=== PATIENT | male | born 1945 | race Caucasian/White ===

== ENCOUNTER 2023-05-20 09:46 | Outpatient (RCR) | payer OTHER, SELFPAY | END 2023-05-20 23:59 | disposition home or self-care (01) | LOC: RPT 09:46 | PROVIDERS: ATTENDING PHYSICIAN Orthopaedic Surgery Hand Surgery; PRIMARYCARE PHYSICIAN Student in an Organized Health Care Education/Training Program | DX: M79.601 Pain in right arm (principal); Z98.890 Other specified postprocedural states; Z73.6 Limitation of activities due to disability | CPT/HCPCS: 97010; 97110; 97140; 97164; 97530 ==

== ENCOUNTER → 2023-06-04 14:35 | Outpatient (REF) | payer OTHER, SELFPAY | LOC: RAD 14:35 | PROVIDERS: ATTENDING PHYSICIAN Student in an Organized Health Care Education/Training Program | DX: I73.9 Peripheral vascular disease, unspecified (principal) | CPT/HCPCS: 93922 ==

== ENCOUNTER 2023-06-17 09:51 | Outpatient (RCR) | payer OTHER, SELFPAY | END 2023-06-17 23:59 | disposition home or self-care (01) | LOC: RPT 09:51 | PROVIDERS: ATTENDING PHYSICIAN Orthopaedic Surgery Hand Surgery; PRIMARYCARE PHYSICIAN Student in an Organized Health Care Education/Training Program | DX: M79.601 Pain in right arm (principal); Z98.890 Other specified postprocedural states; Z73.6 Limitation of activities due to disability | CPT/HCPCS: 97110; 97140 ==

== ENCOUNTER 2023-07-16 16:55 | Outpatient (RCR) | payer OTHER, SELFPAY | END 2023-07-16 23:59 | disposition home or self-care (01) | LOC: RPT 16:55 | PROVIDERS: ATTENDING PHYSICIAN Orthopaedic Surgery Hand Surgery; PRIMARYCARE PHYSICIAN Student in an Organized Health Care Education/Training Program | DX: M79.601 Pain in right arm (principal); Z98.890 Other specified postprocedural states; Z73.6 Limitation of activities due to disability | CPT/HCPCS: 97010; 97110; 97140; 97530 ==

== ENCOUNTER 2023-08-02 08:51 | Outpatient (RCR) | payer OTHER, SELFPAY | END 2023-08-02 13:48 | disposition home or self-care (01) | LOC: RPT 08:51 | PROVIDERS: ATTENDING PHYSICIAN Orthopaedic Surgery Hand Surgery; PRIMARYCARE PHYSICIAN Student in an Organized Health Care Education/Training Program | DX: M79.601 Pain in right arm (principal); Z98.890 Other specified postprocedural states; Z73.6 Limitation of activities due to disability | CPT/HCPCS: 97110; 97530 ==

== ENCOUNTER 2023-08-06 08:30 | Day surgery (SDC) | payer OTHER, SELFPAY ==
[2023-07-24 08:15] VITALS: BMI 23.2
[2023-07-24 08:41] LABS: % Basophils 0.7 % (0-2); % Eosinophils 3.7 % (0-6); % Immature Granulocytes 0.4 % (0-0.5); % Lymphocytes 12.2 % (20.5-51.1); % Monocytes 15.3 % (1.7-9.3); % Neutrophils 67.7 % (42.2-75.2); Absolute Basophils 0.1 10^3/uL (0-0.2); Absolute Eosinophils 0.3 10^3/uL (0-0.7); Absolute Monocytes 1.2 10^3/uL (0.1-0.6); Absolute Neutrophils 5.4 10^3/uL (1.4-6.5); Hematocrit 38.6 % (39.0-52.0); Hemoglobin 12.8 g/dL (13.0-18.0); Mean Corp Hgb Conc. 33.2 g/dL (33.0-37.0); Mean Corpuscular Hgb 31.6 pg (27.0-31.0); Mean Corpuscular Volume 95.3 fL (80.0-94.0); Mean Platelet Volume 10.1 fL (7.4-10.4); Nucleated Red Blood Cells % 0 % (-); Platelet Count 168 10^3/uL (130-400); Red Blood Cell Count 4.05 10^6/uL (4.70-6.10); Red Cell Dist. Width 14.2 % (11.5-14.5)
[2023-07-24 08:52] LABS: ALT (SGPT) 31 U/L (0-50); AST (SGOT) 32 U/L (17-59); Albumin 3.8 g/dl (3.5-5.0); Alkaline Phosphatase 100 U/L (38-126); Blood Urea Nitrogen 19 mg/dl (9-20); Calcium 8.6 mg/dl (8.4-10.2); Carbon Dioxide 30 mmol/L (22-30); Chloride 99 mmol/L (98-107); Estimated Creatinine Clearance 51 ml/min; Glucose 104 mg/dl (70-99); Sodium 137 mmol/L (135-145); Total Bilirubin 1.1 mg/dl (0.2-1.3); Total Protein 6.5 g/dl (6.3-8.2); eGFR > 60.00
[2023-07-24 09:27] LABS: Potassium 4.3 mmol/L (3.5-5.1)
[2023-08-06] VITALS (10 sets, daily range): BP systolic 90–132; BP diastolic 60–98; BMI 23.2
[2023-08-06 13:37] LABS: ACT-LR - POC 297 Seconds (116-155)
[2023-08-06 14:31] LABS: ACT-LR - POC > 397 Seconds (116-155)
[2023-08-06 14:31] LABS: ACT-LR - POC > 397 Seconds (116-155)
--- NOTE | 2023-08-06 16:31 | ITS.CL.ABL ---
[employer] - Ablation
Ablation
Procedure Report:
AFIB ablation:
Mr. Nieves is a very pleasant 77 yr old gentleman with medical history significant for symptomatic persistent atrial fibrillation, on labetalol / Diltiazem and Eliquis presented now in the EP lab for atrial fibrillation ablation
Date of Procedure:
08/06/23
Indications:
Symptomatic atrial fibrillation
Pre-Operative Diagnosis:
Persistent Atrial fibrillation
Post-Operative Diagnosis:
Persistent Atrial fibrillation
Procedure Performed:
Atrial fibrillation ablation with wide area circumferential ablation (WACA) approach for pulmonary vein isolation
Performing Physician:
Lisa Celaya MD
Assistants:
EP staff
Anesthesia:
See anesthesia records
Detailed Description of the Procedure:
Written informed consent was obtained from the patient after a full explanation of the risks and benefits of the procedure including the risks of sedation and anesthesia.
The patient was brought to the electrophysiology laboratory in stable condition in fasting state. Continuous electrocardiographic and hemodynamic monitoring was initiated.
The initial rhythm was atrial fibrillation.
The procedure site was meticulously prepared with surgical scrub and allowed to dry with no pooling. Sterile draping was applied to cover the procedure site. The image intensifier was draped with sterile bag and positioned over the patient. After
infusion of local anesthetic, vascular access was obtained under ultrasound guidance and sheaths were placed over guide wire as detailed below.
Sheath and Catheter Placement:
The sheaths were upgraded as needed during the case. Intracardiac catheters were positioned using direct EAM guidance.� ICE catheter was placed in RA. The following catheters / sheaths were placed
Sheaths:
��������������� Carto VISIGO sheath in right femoral vein upgraded from 8Fr in right femoral vein
��������������� 9Fr in right femoral vein
��������������� 7fr in right femoral vein
���������������
Catheters:
������������� Biosense Hdz Thermocool STSF bidirectional (D/F) - at locations of HRA, RV, LA and LV.
������������� Pentaray catheter � at locations of RA, CS and LA
������������� ICE catheter - at locations of RA, SVC, and RV.
������������� Decapolar Bard catheter � at locations of RA, SVC and CS
Heparin was initiated and infused to maintain appropriate ACT.
Intracardiac ECHO:
An 8-Urdu AcuNav intracardiac ECHO (ICE) probe was advanced through the 9-Urdu sheath in the femoral vein into the right atrium under EAM and ICE ultrasound image guidance and a baseline ECHO study was performed. The left atrial size was
enlarged. There was mild tricuspid regurgitation. The aortic valve was grossly normal. There was normal left ventricular systolic functions. There was small pericardial effusion. The CARRILLO has normal velocities noted on Doppler. All the veins were
identified and good flow noted.
The cardiac chambers were rotated as noted previously on the CT scan. 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 The cardiac chambers are
located on the right side of the mediastinum.
During the procedure, ICE was used for monitoring of complications, guidance of trans-septal puncture, monitor the catheter position and tracking ablation lesions. No change in the pericardial space noted throughout the procedure.
Electroanatomic mapping (EAM) of the right atrium:
A J-tipped guidewire was advanced through the 8-Urdu sheath in the right femoral vein into the superior vena cava under EAM and ICE guidance. The 8-Urdu sheath was exchanged for a VIZIGO sheath which was advanced into the superior vena cava.
�Using the Pentaray catheter advanced through VIZIGO sheath into the right atrium, an electroanatomic map (EAM) of the right atrium, SVC and IVC �was created using [employer] Carto mapping system. The map was used to identify the trans-septal
location and route to take. The IVC travels to the right and anteriorly from the abdomen and the LA and septum was posterior and superiorly. The sheath has to make an S shaped curve to come in contact with the fossa ovalis.
Trans-septal Puncture:
A J-tipped guidewire with dilator was advanced through VIZIGO sheath into the superior vena cava under EAM and ICE guidance. A BRK needle was advanced until the tip was slightly behind the tip of the dilator inside the Visigo sheath. The apparatus
was withdrawn until it was in contact with the fossa ovalis. The position was adjusted based on EAM and ultrasound images from ICE. Under EAM, hemodynamic and ICE ultrasound and Fluoroscopic guidance, left atrium was cannulated by advancing the
needle. Once atrial septum was cannulated, the needle was pulled back and a BMW was placed into the LA and to LSPV. A saline injection was done into the left atrium. The saline bubbles were noted on the ICE confirming the trans-septal puncture. Both
the sheath and the dilator was advanced into the left atrium. The dilator with the needle was withdrawn. Blood was aspirated from the sheath and arterial blood confirmed. The sheath was flushed. Saline injection noted into the left atrium on ICE.
The pressure waveform was checked and LA pressure measured. The penta-ray catheter was advanced in the sheath into the left pulmonary vein.
The 3-D mapping was done and then the penta-ray was switched to ablation catheter and back to penta-ray as needed.
3D Electroanatomic Mapping - LA:
Using the Pentaray catheter advanced through VIZIGO sheath into the left atrium, an electroanatomic map (EAM) of the left atrium was created using [employer] Carto mapping system. The map was used for localization of catheter position and
tacking of ablation lesions. The EAM of the left atrium showed a 2 left sided veins with 2 right sided veins with all electrically connected to the body the LA. It showed no significant scar. The LA was dilated in size. �
Following the EAM, preparations were made for ablation.
Phrenic nerve stimulation:
The right sided pulmonary veins were identified and the anterior antrum and the deep anterior locations of the PVs were check with high output stimulation 20mA for 4 milliseconds that showed no phrenic nerve capture in any of the potential ablation
areas.
No phrenic nerve capture was noted and the safe areas were marked and a design line was created through the areas of tested antral myocardium for ablation lesions.
Ablation:
Ablation # 1: Pulmonary vein Isolation:
Radiofrequency ablation was performed using an open irrigation, force-sensing 3.5mm radiofrequency ablation catheter (TripletPlus STSF) by completing the circumferential lesions around the left and right pulmonary veins achieving pulmonary vein
isolation.
All the ablation lesions were guided by the [facility] SURPOINT module with the posterior lesions were limited to 45 fields for SURPOINT lesion index goal of 400 and anterior wall lesions were limited to SURPOINT index goal of 450.
The esophagus was noted to be on the left side of the LA near the PV antra based on the locations of the esophageal temperature probe. Ablation was stopped for any temperature increase of 0.1 degree C. Max esophageal temperature was 37.9C.
The AF converted into atrial flutter with completion of the PVI and then terminated into sinus rhythm.
Confirmation of the PVI and bidirectional block:
Following achievement of entrance block at the pulmonary veins, pacing from the pentaray catheter in each of the four veins at 10 milliamps for 2 milliseconds showed entrance and exit block. All PVI were rechecked at the end of the case and remained
isolated with dissociated and local capture with pacing. Entrance and exit block were demonstrated in all veins.
The LA was mapped with Carto EAM in sinus rhythm confirming the line of block at the ablation lesions lines.
EP study:
Sinus Node Function: The sinus node functions are within acceptable normal range. The atrial ERP was noted at <600/280 while under general anesthesia.
The AV eli functions are deemed within normal range. AV eli ERP was 600/280ms. There was retrograde conduction noted.
Arrhythmia Induction:
No sustained arrhythmia was induced at the end of the study. Aggressive measures were done to induce the flutter noted earlier but arrhythmia can be induced now. ��
Procedure End
ICE study was done again that showed no epicardial accumulation. No complications noted.
Following the completion of the EP study, catheters were removed. Protamine 40 mg was given at the end of the procedure and ACT was checked repeatedly. The sheaths were removed and hemostasis achieved with �VASCADE� and manual compression after
acceptable ACT is achieved.
Left atrial Pressure:
Pre-ablation: Mean LA pressure was 11mmHg
Post-ablation: Mean LA pressure was 10mmHg
Post ablation RA pressure: 4 mmHg
Estimated Blood loss:
<10 cc
Specimens Removed:
None.
Implants / Devices:
None
Urine output:
None
Packs / Drains/ Tubes:
None
Instrument / Sponge Count Correct:
Yes
Complications of the Procedure:
None
Condition of Patient at Time of Transfer:
Hemodynamically stable with no neurological or vascular compromise.
Summary:
Successful atrial fibrillation ablation with circumferential bidirectional line of block at pulmonary vein antra (Pulmonary vein isolation)
--- NOTE | 2023-08-06 16:37 | W.PN.UPDATE ---
Update Note
Progress Note Update
77 yo WM s/p PVI (same day). He denies cp, sob, aden diet, voiding, EKG SR, R fem site VASCADE closure, soft. He will take his Eliquis at 8pm at home. He will continue diltiazem and will add PPI for 2 weeks. Activity restrictions reviewed. He will
f/u [employer] in 2 weeks. He is for d/c home after 5pm if groins stable and amb w/o dizziness.
== END 2023-08-06 18:25 | disposition home or self-care (01) ==
LOC: CATH 08:30
PROVIDERS: ATTENDING PHYSICIAN Internal Medicine Cardiovascular Disease; FAMILY PHYSICIAN Student in an Organized Health Care Education/Training Program; OTHER PHYSICIAN Internal Medicine
DX: I48.19 Other persistent atrial fibrillation (principal); Z79.01 Long term (current) use of anticoagulants; I11.0 Hypertensive heart disease with heart failure; E78.5 Hyperlipidemia, unspecified; Z95.5 Presence of coronary angioplasty implant and graft; I25.10 Atherosclerotic heart disease of native coronary artery without angina pectoris; Z86.73 Personal history of transient ischemic attack (TIA), and cerebral infarction without residual deficits; J45.909 Unspecified asthma, uncomplicated; M41.9 Scoliosis, unspecified; K21.9 Gastro-esophageal reflux disease without esophagitis; Z88.1 Allergy status to other antibiotic agents; Z88.5 Allergy status to narcotic agent; I35.1 Nonrheumatic aortic (valve) insufficiency
CPT/HCPCS: C1769; C1730; C1732; C1892; C1759; C1894; 36415; 75572; 76937; 80053; 85025; 85347; 86850; 86900; 86901; 93005; 93656; C1760; C1766; Q9967

== ENCOUNTER 2023-08-09 18:26 | Inpatient (IN) | payer OTHER, SELFPAY ==
[2023-08-09 13:53] VITALS: BP 126/70
[2023-08-09 14:23] LABS: % Basophils 0.2 % (0-2); % Eosinophils 1.2 % (0-6); % Immature Granulocytes 0.2 % (0-0.5); % Lymphocytes 5.4 % (20.5-51.1); % Monocytes 17.4 % (1.7-9.3); % Neutrophils 75.6 % (42.2-75.2); Absolute Eosinophils 0.2 10^3/uL (0-0.7); Absolute Lymphocytes 0.7 10^3/uL (1.2-3.4); Absolute Monocytes 2.2 10^3/uL (0.1-0.6); Absolute Neutrophils 9.6 10^3/uL (1.4-6.5); Hematocrit 34.5 % (39.0-52.0); Hemoglobin 11.8 g/dL (13.0-18.0); Mean Corp Hgb Conc. 34.2 g/dL (33.0-37.0); Mean Corpuscular Hgb 31.8 pg (27.0-31.0); Mean Platelet Volume 10.1 fL (7.4-10.4); Nucleated Red Blood Cells % 0 % (-); Platelet Count 136 10^3/uL (130-400); Red Blood Cell Count 3.71 10^6/uL (4.70-6.10); Red Cell Dist. Width 13.9 % (11.5-14.5); White Blood Cell Count 12.8 10^3/uL (4.8-10.8)
[2023-08-09 15:00] LABS: Troponin I 0.272 ng/ml
--- NOTE | 2023-08-09 15:33 | ED.GENMED ---
History of Present Illness
General
Chief Complaint: Abdominal Pain
Time Seen by Provider: 08/09/23 15:31
Travel History
Have you had any contact with someone who has COVID-19?: No
Do you have any symptoms of coronavirus? Fever > 100 degrees, chills, cough, shortness of breath, sore throat, loss of taste or smell, muscle aches, or headache?: No
History of Present Illness
History of Present Illness:
77-year-old male with history of paroxysmal A-fib, stroke, hypertension, hyperlipidemia, and coronary artery disease status post stent x 2 presents to the emergency department for evaluation of shortness of breath and upper abdominal/chest
discomfort beginning 2 days ago. He is 3 days status post cardiac ablation for A-fib. He is anticoagulated. Notes exertional dyspnea and worsening symptoms when supine. Also notes a 6 pound weight gain since that time. Has been compliant with
all of his medications since the procedure. Denies any fevers or chills.
Past History
Past History
ED Past Medical History: Arrthythmia, CAD, CVA, GERD and HTN
ED Past Surgical History: Cardiac, Orthopedic and Other (The patient has a history of 2 spinal fusions, and stents for coronary artery disease. )
Social History
Tobacco: Non-smoker
Alcohol: None
Drug: None
Personal:
Living: with family
Review of Systems
Review of Systems
Allergies reviewed?: Yes
All Other Systems: ROS reviewed and negative except as documented in HPI and ROS
Phy Exam
Physical Exam
Physical Exam:
GEN: Well appearing, NAD, WDWN
Eyes: PERRLA, EOMs intact, no scleral icterus
HENT: NCAT, oral mucosa moist, no JVD, no cervical adenopathy.
Lungs: CTAB, no wheezes, rales, rhonchi, normal chest wall excursion
Cardiac: Tachycardic/irregular, no murmur
Abdomen: S, NT, ND, NABS, no masses or hepatosplenomegaly
Neuro: AO x 3
MSK: No gross deformity or ecchymosis. 3+ pitting edema BLE
Skin: No rashes, petechiae. Normal color, no pallor or jaundice.
Psych: Calm, cooperative, proper hygiene
Course
Orders/Labs/Results
Orders:
Orders
08/09/23 14:06
Electrocardiogram (*1) Urgent
Reason for Study: Abdominal Pain
EKG- Treatment ONCE
08/09/23 14:14
Complete Blood Count/With Diff Urgent
Comprehensive Metabolic Panel Urgent
Lipase Urgent
NT-proBNP Urgent
Comment: BNP ADDED ON BY FLOOR 3:30PM 08-09-23
Troponin I Urgent
08/09/23 Dinner
Cholesterol Lowering
At Your Request: Full Participation
Cholesterol Lowering: Sodium, 2 Gram
08/09/23 15:31
Add On- LAB Urgent
Tests Added?: BNP
08/09/23 15:32
CR Chest - 2 Views Urgent
Comment:
Reason For Exam: chest pain/SOB
08/09/23 15:37
Echo 2D MMode Color/Doppler Urgent
Reason for Study: chest pain/SOB
Cardiology Consult: Usman Acosta
Comment: chest pain/SOB s/p ablation
08/09/23 17:18
Troponin I Routine
08/09/23 17:19
Furosemide [Lasix] 20 mg .ROUTE .STK-MED ONE
Furosemide [Lasix] 20 mg IV ONCE ONE
08/09/23 17:42
Admit/Transfer Patient As Directed
Co-Sign Provider:
Level of Care: Inpatient admission
Assign to:: Telemetry
Physician / Group: Edward/hospitalist
Diagnosis: pericarditis, CHF
Reason for Telemetry: Arrhythmia
Date to Stop Telemetry: 08/12/23
Time to Stop Telemetry: 11:00
Reason for Hospitalization: pericarditis, CHF
Expected length of stay greater than two midnights?: Yes
ELOS- Estimated Length of Stay in days: 3
I certify the patient meets the requirements for IP care: Yes
08/09/23 17:44
Code Status As Directed
Resuscitation Status: Full Code
08/09/23 17:57
Ibuprofen [Motrin] 400 mg PO NOW STA
08/09/23 20:46
Apixaban [Eliquis] 5 mg PO BID
Atorvastatin [Lipitor] 40 mg PO QPM
Labetalol [Trandate] 200 mg PO BID
08/09/23 20:46
CARDIOLOGY CONSULT Routine
Consulting Provider: Ernst Acosta
Was physician already notified: Yes
HF DIETARY CONSULT Routine
HF EDUCATOR CONSULT Routine
Comment:
Activity As Directed
Activity Level: As Tolerated
Intake/ Output As Directed
Frequency: Per unit guidelines
Patient Education As Directed
Type: CHF folder
Comment: give on admission. Document in Interdisciplinary Education record
Sleep Apnea Assessment by RN As Directed
Comment:
Physician Instructions:
Vital Signs As Directed
Frequency: Other
Additional Instructions:: Q12 or per unit guidelines if more frequent.
Weight As Directed
Frequency: Daily
Type of Scale: Standing Scale
Comment: Daily morning weight. If unable to stand, use balanced bed scale.
Weight As Directed
Frequency: Once
Type of Scale: Standing Scale
Comment: Upon Admission. If unable to stand, use balanced bed scale.
Pulse Ox/cont/shift [RESP] Routine
Quantity: 1
Special Instructions: Daily pulse oximetry at rest. If greater than 92% at rest also obtain pulse oximetry
while ambulating as tolerated.
Ot Eval And Treat Routine
Pt Eval And Treat Routine
Activity Level: As Tolerated
08/09/23 20:50
Acetaminophen [Tylenol] 650 mg PO Q4HPRN PRN
08/09/23 22:00
Budesonide/Formoterol 80/4.5 [Symbicort 80/4.5 Mcg Inhaler] 2 puff INH R HS
Famotidine [Pepcid] 20 mg PO BID@1200,2200
08/10/23 06:00
Basic Metabolic Panel IN AM
Complete Blood Count/With Diff IN AM
Magnesium IN AM
08/10/23 08:00
Diltiazem Extended Release [Cardizem Cd] 180 mg PO DAILY
Ferrous Sulfate [Feosol] 325 mg PO DAILY
Furosemide [Lasix] 20 mg IV DAILY
Pantoprazole [Protonix] 40 mg PO DAILY
08/11/23 06:00
Basic Metabolic Panel IN AM
Complete Blood Count/With Diff IN AM
Magnesium IN AM
08/12/23 06:00
Basic Metabolic Panel IN AM
Complete Blood Count/With Diff IN AM
Magnesium IN AM
08/12/23 11:00
DC Protocol for Telemetry ONCE
Abnormal Lab Results
08/09/23 08/09/23
14:14 17:18
WBC 12.8 H 10^3/uL
(4.8-10.8)
RBC 3.71 L 10^6/uL
(4.70-6.10)
Hgb 11.8 L g/dL
(13.0-18.0)
Hct 34.5 L %
(39.0-52.0)
MCH 31.8 H pg
(27.0-31.0)
Absolute Neuts (auto) 9.6 H 10^3/uL
(1.4-6.5)
Absolute Lymphs (auto) 0.7 L 10^3/uL
(1.2-3.4)
Absolute Monos (auto) 2.2 H 10^3/uL
(0.1-0.6)
Neutrophils % 75.6 H %
(42.2-75.2)
Lymphocytes % 5.4 L %
(20.5-51.1)
Monocytes % 17.4 H %
(1.7-9.3)
Sodium 128 L mmol/L
(135-145)
Chloride 94 L mmol/L
(98-107)
BUN 22 H mg/dl
(9-20)
Glucose 113 H mg/dl
(70-99)
Calcium 8.2 L mg/dl
(8.4-10.2)
Total Bilirubin 1.6 H mg/dl
(0.2-1.3)
Troponin I 0.272 H* ng/ml 0.244 H* ng/ml
Total Protein 6.0 L g/dl
(6.3-8.2)
08/09/23 14:14
08/09/23 14:14
Vital Signs
Initial and Last Documented VS:
Initial Vital Signs
Temp Pulse Resp BP Pulse Ox
99.5 F 74 22 126/70 91
08/09/23 13:53 08/09/23 13:53 08/09/23 13:53 08/09/23 13:53 08/09/23 13:53
Last Documented Vital Signs
Temp Pulse Resp BP Pulse Ox
97.3 F 84 15 101/65 97
08/09/23 19:33 08/09/23 22:12 08/09/23 21:48 08/09/23 22:12 08/09/23 21:48
MDM/Problems Addressed
MDM/Problems Addressed:
Cardiology was consulted for urgent echocardiogram given symptoms concerning for acute pericarditis. Fortunately echocardiogram showed no evidence for effusion. Given his weight gain and exertional shortness of breath for acute CHF with preserved
ejection fraction. Certainly some component of pericarditis is considered as well given the recent cardiac intervention and the positional nature of his symptoms. Will admit to the hospitalist service for IV diuresis, further care to be determined
by cardiology
Comment
Comment:
EKG independently interpreted by me shows a rapid atrial fibrillation at a rate of 103, significant patient motion artifact limits interpretation but no gross ST changes concerning for ischemia
*Critical Care Note
Total Time (30-74mins, 75-104mins- exclusive of procedures): Not Applicable
ED Attending Note
-
Portions of this chart may have been created with voice recognition software.� Occasional wrong word or��sound alike� substitutions may have occurred due to the inherent limitations of voice recognition software.
Discharge Plan
Departure
Patient Disposition: Admit
Date of Disposition: 08/09/23
Time of Disposition: 17:16
Admit to: Telemetry
Presentation/result/management discussed w/ accepting MD/DO: Hospitalist
Discharge Problem:
Acute heart failure with preserved ejection fraction (HFpEF)
Interventions
Interventions:
*Risk Screen - Suicide Last Done: 08/09/23 14:04
*General Assessment Last Done: 08/09/23 14:04
*Neglect/Abuse Screening Last Done: 08/09/23 14:04
ED- Fall Risk Assessment Last Done: 08/09/23 15:30
*ED COVID-19 Vaccine History Last Done: 08/09/23 15:30
*Nursing Disposition Last Done: 08/09/23 20:48
FL-Istxbl-Ulenpsjbcf Assessment Last Done: 08/09/23 15:30
Discharge Date and Time
Discharge Date/Time: 08/09/23 20:48
[2023-08-09 15:54] LABS: ALT (SGPT) 29 U/L (0-50); AST (SGOT) 35 U/L (17-59); Albumin 3.5 g/dl (3.5-5.0); Alkaline Phosphatase 83 U/L (38-126); Blood Urea Nitrogen 22 mg/dl (9-20); Calcium 8.2 mg/dl (8.4-10.2); Carbon Dioxide 29 mmol/L (22-30); Chloride 94 mmol/L (98-107); Glucose 113 mg/dl (70-99); Potassium 4.4 mmol/L (3.5-5.1); Sodium 128 mmol/L (135-145); Total Bilirubin 1.6 mg/dl (0.2-1.3); eGFR > 60.00
--- NOTE | 2023-08-09 16:05 | CON.CAR ---
Addendum entered and electronically signed by Ernst Acosta MD 08/09/23 17:57:
77-year-old male with history of coronary artery disease, prior OM and RCA stenting, atrial fibrillation, history of CVA, paralyzed hemidiaphragm COPD/asthma who recently underwent A-fib ablation 08/06/2023 patient presents with shortness of breath
and some chest discomfort. Patient noted to have mid lower sternal to right lower sternal chest discomfort the day after his procedure seem to be worse laying flat. Symptoms were a bit worse on and have persisted today. However patient
has noticed that he has had increased shortness of breath tickly worse when laying flat. Currently comfortable just a low-grade sacralization at the right lower chest but patient appears mildly tachypneic on room air. Oximetry 90%. Echocardiogram
performed in the ER. Images reviewed patient with preserved left ventricular function no evidence of significant pericardial effusion. Patient currently noted to be in A-fib with heart rate in the upper 90s to 100. However there were times in the
ER when he had atrial flutter with accelerated ventricular response.
.\\
Chest discomfort. Suspect a component of this is postprocedural discomfort patient may have a component of postprocedural pericarditis although some of his discomfort may just be related to CHF.
-Will continue to assess symptoms as he is diuresed.
-If send symptoms sound more consistent with pericarditis then may consider use of colchicine
Shortness of breath. Patient has baseline underlying lung disease with COPD/asthma and a paralyzed hemidiaphragm. Likely has additional shortness of breath related to recurrence of atrial fibrillation as well as a component of heart failure.
Diuresis with IV Lasix. Eventual plans for cardioversion
Troponin. Mildly abnormal. May be consistent with most recent procedure. Patient without acute ischemic changes chest discomfort by description is atypical for angina. No wall motion abnormalities on echo. Patient does have a history of
underlying coronary disease. Will follow serial troponins.
-Continue anticoagulation
Addendum entered and electronically signed by ITZ Giron 08/09/23 17:23:
Patient now in AFIB -rate relatively well controlled- no need for dilt drip at this time. Echo showed no pericardial effusion and normal LV function. Will give a dose of IV diuretic now and monitor response. Check another trop. Can consider
Motrin/colchicine if pain persists-currently fairly comfortable. Patient to be placed on O2 by UT.
Original Note:
Consultation
Consultation Request
Date/Time Consultation Requested: 08/09/23 4358
Date/Time Consultation Performed: 08/09/23 1545
Requesting Provider: Donovan Martines
Performing Provider: Connie MOBLEY for Dr. Acosta
Reason for Consultation: CP, SOB, AFIB, s/p recent ablation
Medical History
-
Chief Complaint: SOB and chest discomfort
History of Present Illness:
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 Martinez) with superimposed restrictive lung
disease who is here for evaluation of CP and SOB. Briefly, he had an afib ablation/PVI on 08/06/[address] Celaya. The next night, he felt SOB and had chest discomfort, which worsened over the next few days. Tylenol helped quite a bit. He is now in
the ER and was initially seen to be in AFIB, now appears like aflutter to my assessment in 130's. He is in no distress. BP is stable. He notes 6 lb weight gain and increased LE edema. Symptoms worse with laying. Chest pain is aching feeling and goes
around to back. It is noted in rib area and is worse on right. He has had a chronic productive cough.
Past Medical History
Past Medical History: Arrhythmias, CAD, COPD, CVA, HTN and Hypercholesterolemia
Social History
Tobacco: Non-Smoker
Personal:
Living: With Family
Family History
Family History: Reviewed & Not Pertinent
Allergies / Home Medications
Allergy/AdvReac Type Severity Reaction Status Date / Time
levofloxacin [From Levaquin] Allergy extreme Verified 08/09/23 14:04
pain in
lower legs
and calves
tramadol Allergy Shortness Verified 08/09/23 14:04
of Breath
�Medication �Instructions �Recorded �Confirmed �Type
ascorbic acid (vitamin C) 500 mg 500 mg PO DAILY Supplement 11/06/19 08/06/23 History
tablet (Vitamin C)
calcium carbonate (Oyster Shell 500 mg PO DAILY Gastrointestinal 05/12/21 08/06/23 History
Calcium 500) issue
famotidine 20 mg tablet 20 mg PO BID@1200,2200 05/12/21 08/06/23 History
Gastrointestinal issue
atorvastatin 40 mg tablet 40 mg PO QPM High Cholesterol 09/19/21 08/06/23 History
zinc sulfate 50 mg zinc (220 mg) 220 mg PO .2 TIMES A WEEK 09/28/21 07/18/23 History
capsule Supplement
acetaminophen 650 mg 1,300 mg PO BIDPRN PRN PAIN 12/25/22 08/06/23 History
tablet,extended release
cholecalciferol (vitamin D3) 25 25 mcg PO Q48H supplement 12/25/22 08/06/23 History
mcg (1,000 unit) tablet (Vitamin
D3)
diltiazem HCl 180 mg capsule,24 180 mg PO DAILY AFib/hypertension 12/25/22 08/06/23 History
hr,extended release
vitamin A 2,400 mcg capsule 2,400 mcg PO TUFR@0800 Supplement 12/25/22 08/06/23 History
fluticasone fur. 100 mcg-umeclid 1 inh inhalation R HS 12/27/22 08/06/23 History
62.5 mcg-vilant 25 mcg Lung/Breathing Issues
inhalat.powder (Trelegy Ellipta)
apixaban 5 mg tablet (Eliquis) 5 mg PO BID atrial fibrillation 04/16/23 08/06/23 History
azelastine 137 mcg (0.1 %) nasal 2 spray intranasal DAILYPRN PRN 12/26/23 04/16/24 History
spray aerosol allergies
coQ10 (ubiquinol) 200 mg capsule 200 mg PO DAILY supplement 04/16/23 08/06/23 History
fluticasone propionate 50 1 spray intranasal DAILY PRN 04/16/23 08/06/23 History
mcg/actuation nasal allergies
spray,suspension
labetalol 200 mg tablet 200 mg PO BID Blood Pressure 04/16/23 08/06/23 History
therapeutic multivitamin 1 tab PO DAILY Supplement 04/16/23 08/06/23 History
albuterol sulfate 90 mcg/actuation 2 puff inhalation R Q4HPRN PRN sob 04/18/23 07/18/23 Rx
aerosol inhaler #1 g
furosemide 20 mg tablet (Lasix) 20 mg PO MOWEFR@1400 07/18/23 08/06/23 History
ferrous sulfate 325 mg (65 mg 325 mg PO DAILY 08/06/23 08/06/23 History
iron) tablet (iron)
pantoprazole 40 mg tablet,delayed 40 mg PO DAILY #14 tabs 08/06/23 Rx
release
Review of Systems
-
History Source: Patient
All other systems: Negative unless noted
Constitutional: Weight Gain
Respiratory: Cough and Trouble Breathing
Cardiac: Chest Pain
Musculoskeletal: Edema
Physical Exam
Vital Signs
Temp Pulse Resp BP Pulse Ox
99.5 F 74 22 126/70 91
08/09/23 13:53 08/09/23 13:53 08/09/23 13:53 08/09/23 13:53 08/09/23 13:53
Lab Results
08/09/23 14:14
08/09/23 14:14
Troponin I 0.272 ng/ml H* 08/09/23 14:14
Physical Exam
General: Well Developed, Well Nourished and No Apparent Distress
HEENT: Normocephalic and Anicteric
Respiratory: Wheezes and Rhonchi
Cardiac: Regular Rhythm (Aflutter 135 BPM, regular currently) and Peripheral Edema (moderate BLE edema)
Musculoskeletal: Edema
Skin: Warm and Dry
Neuro: AO x 3
Psych: Calm
Impression / Plan
-
SOB:
-check echo now r/o effusion
-CXR pending- patient does have rhonchi and wheezing, also with evidence for excess fluid. Suspect bbulw-cw-etxhois HFpEF and likely to need IV diuresis, which requires intensive monitoring. BNP pending, but weight up and edema noted. Await echo to
r/o effusion before diuresis. Known lung disease as detailed above.
Chest discomfort:
-some could be post-procedural inflammation/pain. It was helped with Tylenol.
Abnormal troponin:
-suspect non-ischemic myocardial injury related to recent procedure
-can trend to peak
-echo as above
AFIB/Atrial flutter:
-s/p recent PVI- came in in afib, now appears in aflutter
-continue CCB/BB
-on Eliquis for OAC
-may need CV, but await testing as above- in meantime, may need more rate control with dilt drip, which requires intensive monitoring
Hyponatremia:
-could be secondary to excess volume
CAD with hx stenting 2009:
-on Eliquis, statin, BB
-low risk stress test 2020
Data Reviewed
-
EKG: Tracing Personally Visualized and interpreted (AFIB 103 BPM)
Radiology: Other (CXR pending)
Medical Tests (Nuc Med, Echo etc): Report Reviewed by me (echo 04/17/23: Normal biventricular size and systolic function without regional wall motion abnormality. Trace aortic regurgitation. Mild pulmonary hypertension.) and Other (echo pending)
Labs: Labs Reviewed by me (trop 0.272, NA 128)
[2023-08-09 16:20] LABS: NT-proBNP 1360 pg/ml
[2023-08-09 16:49] LABS: Lipase 190 U/L (23-300)
[2023-08-09 17:08] VITALS: BP 113/79
--- NOTE | 2023-08-09 17:18 | HPS.HSE ---
Family Physician
-
Family Physician: Alessandra Burr MD
Chief Complaint
-
Chest pain with shortness of breath
History of Present Illness
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 Martinez) with superimposed restrictive lung
disease; p/w CP and SOB.
Pt had an afib ablation/PVI on 08/06/[address] Celaya. The next night, he felt SOB and had chest discomfort/ ache, which worsened over the next few days. His CP is worse with lying flat, and relieved with leaning forward.
He also has had 6 lb weight gain and increased LE edema since the ablation.
In the ER, he was noted to be in A-fib/atrial flutter.
Cardiology was consulted, and patient was admitted for likely pericarditis with acute heart failure.
Medical History
Past Medical History
Past Medical History: Reports Other
Additional Past Medical History:
Persistent A-fib
CVA 2020
HTN
HLD
GERD/Moffett's esophagus
CAD/cardiac stents 15-20 years ago
Asthma
Polio with chronic left elevated hemidiaphragm
scoliosis with lee repair as a teen, iron deficiency
Past Surgical History: Reports Other
Additional Past Surgical History:
poppy fusion secondary scoliosis as a teenager right rotator cuff repair
Inguinal hernia repair
Cardiac cath with stents 15 to 20 years ago
Social History
Tobacco: Non-smoker
Alcohol: None
Drug: None
Personal:
Living: With Family
Family History
Family History: Not pertinent
Allergies / Home Medications
Allergies reflects when Allergies were last updated in [facility].
Home Medications with original date entered in [facility]
Allergy/Medication List:
Allergies
Allergy/AdvReac Type Severity Reaction Status Date / Time
levofloxacin [From Levaquin] Allergy extreme Verified 08/09/23 14:04
pain in
lower legs
and calves
tramadol Allergy Shortness Verified 08/09/23 14:04
of Breath
Home Medications
ascorbic acid (vitamin C) 500 mg tablet (Vitamin C) 500 mg PO DAILY Supplement 11/06/19
calcium carbonate (Oyster Shell Calcium 500) 500 mg PO DAILY Gastrointestinal issue 05/12/21
famotidine 20 mg tablet 20 mg PO BID@1200,2200 Gastrointestinal issue 05/12/21
atorvastatin 40 mg tablet 40 mg PO QPM High Cholesterol 09/19/21
zinc sulfate 50 mg zinc (220 mg) capsule 220 mg PO .2 TIMES A WEEK Supplement 09/28/21
acetaminophen 650 mg tablet,extended release 1,300 mg PO BIDPRN PRN mild pain 12/25/22
cholecalciferol (vitamin D3) 25 mcg (1,000 unit) tablet (Vitamin D3) 25 mcg PO Q48H supplement 12/25/22
diltiazem HCl 180 mg capsule,24 hr,extended release 180 mg PO DAILY AFib/hypertension 12/25/22
vitamin A 2,400 mcg capsule 2,400 mcg PO TUFR@0800 Supplement 12/25/22
fluticasone fur. 100 mcg-umeclid 62.5 mcg-vilant 25 mcg inhalat.powder (Trelegy Ellipta) 1 inh inhalation R HS Lung/Breathing Issues 12/27/22
apixaban 5 mg tablet (Eliquis) 5 mg PO BID atrial fibrillation 04/16/23
azelastine 137 mcg (0.1 %) nasal spray aerosol 2 spray intranasal DAILYPRN PRN allergies 04/16/23
coQ10 (ubiquinol) 200 mg capsule 200 mg PO DAILY supplement 04/16/23
fluticasone propionate 50 mcg/actuation nasal spray,suspension 1 spray intranasal DAILY PRN allergies 04/16/23
labetalol 200 mg tablet 200 mg PO BID Blood Pressure 04/16/23
therapeutic multivitamin 1 tab PO DAILY Supplement 04/16/23
albuterol sulfate 90 mcg/actuation aerosol inhaler 2 puff inhalation R Q4HPRN PRN sob #1 g 04/18/23
furosemide 20 mg tablet (Lasix) 20 mg PO MOWEFR@1400 07/18/23
ferrous sulfate 325 mg (65 mg iron) tablet (iron) 325 mg PO DAILY 08/06/23
pantoprazole 40 mg tablet,delayed release 40 mg PO DAILY #14 tabs 08/06/23
Review of Systems
-
Respiratory: Reports Trouble Breathing
Cardiac: Reports See HPI and Chest Pain
Physical Exam
Vital Signs
Vital Signs
Temp Pulse Resp BP Pulse Ox
37.5 C 74 22 126/70 91
08/09/23 13:53 08/09/23 13:53 08/09/23 13:53 08/09/23 13:53 08/09/23 13:53
Physical Exam
General: Well Developed, Well Nourished, Comfortable, Conversant and Appears Chronically Ill
HEENT: NormoCephalic, Moist mucous membranes, Atraumatic and Oxygen (2L NC)
Respiratory: Clear and Non Labored Respirations; No Accessory Resp Muscle Use
Cardiac: S1/S2 and Irregular Rhythm; No Murmur or Rub
GI: Soft, Non Tender, Non Distended and Normal Bowel Sounds; No Organomegaly
Rectal: Deferred by Provider
Musculoskeletal: No Clubbing, No Cyanosis, Edema, Left Lower Extremity and Edema, Right Lower Extremity
Skin: No Rash
Neuro: Awake
Psych: Calm and Intact Judgment/Insight
Laboratory Results
-
08/09/23 14:14
08/09/23 14:14
Laboratory Results
Total Bilirubin 1.6 mg/dl (0.2-1.3) H 08/09/23 14:14
AST 35 U/L (17-59) 08/09/23 14:14
ALT 29 U/L (0-50) 08/09/23 14:14
Alkaline Phosphatase 83 U/L (38-126) 08/09/23 14:14
Troponin I 0.272 ng/ml H* 08/09/23 14:14
Lipase 190 U/L (23-300) 08/09/23 14:14
Data Reviewed
-
Medical Tests (Nuc Med, Echo, EKG etc): Report Reviewed by me (echo)
Lab Data: Labs Reviewed by me
Impression/Plan
-
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 Martinez) with superimposed restrictive lung
disease; p/w CP and SOB.
Pt had an afib ablation/PVI on 08/06/[address] Celaya. The next night, he felt SOB and had chest discomfort/ ache, which worsened over the next few days. His CP is worse with lying flat, and relieved with leaning forward.
He also has had 6 lb weight gain and increased LE edema since the ablation.
In the ER, he was noted to be in A-fib/atrial flutter.
Cardiology was consulted, and patient was admitted for likely pericarditis with acute heart failure.
A/P:
# Acute on chronic diastolic heart failure
Echo on admission unrevealing: EF 60-65%. Compared to the previous echo there is no significant change.
IV Lasix 20 mg ordered by cardiology, continue. Monitor daily weight and electrolyte
Cardiology consult
# Likely pericarditis
Echo unrevealing
Most likely would need colchicine
Cardiology CS as above
# Persistent atrial fibrillation.
# Hypertension.
Rate controlled
Continue prior to admission Cardizem and labetalol
Continue prior to admission Eliquis
Cardiology consult as above
# Hyperlipidemia.
# Coronary artery disease status post PAMELA to mid RCA and OM 06/11/2009.
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
# Asthma, mod intermittent
On daily Trelegy
# Restrictive lung disease.
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
# Scoliosis.
# Gastroesophageal reflux disease.
PPI
# Hyperlipidemia
Cont Lipitor.
Full code
DVT ppx: SCOUT SNIPER Eliquis
[2023-08-09] MEDS: LASIX 20 MG IV (17:24)
[2023-08-09 17:50] LABS: Troponin I 0.244 ng/ml
[2023-08-09 18:00] VITALS: BP 105/64
[2023-08-09] MEDS: MOTRIN 400 MG PO (18:25)
[2023-08-09 19:33] VITALS: BP 101/61
[2023-08-09 20:00] VITALS: BP 96/64
--- NOTE | 2023-08-09 21:30 | PTCARENOTE ---
Pt arrived to floor from ED via stretcher. Pt ambulated with a stable gait to bed. Pt aox3. VSS , on 2LNC. pt placed on tele, given heart failure education and oriented to room. Will review chart and follow plan of care.
[2023-08-09 21:31] VITALS: BMI 22.1
[2023-08-09] MEDS: SPIRIVA RESPIMAT 2.5 MCG 2 PUFF INH (21:42)
[2023-08-09] MEDS: SYMBICORT 80/4.5 MCG INHALER 2 PUFF INH (21:42)
[2023-08-09 21:52] VITALS: BMI 22.1
[2023-08-09] MEDS: PEPCID 20 MG PO (22:11)
[2023-08-09] MEDS: LIPITOR 40 MG PO (22:11)
[2023-08-09] MEDS: ELIQUIS 5 MG PO (22:11)
[2023-08-09] MEDS: TYLENOL 650 MG PO (22:11)
[2023-08-09] MEDS: TRANDATE 200 MG PO (22:12)
[2023-08-09 23:50] VITALS: BP 109/72
[2023-08-10] VITALS (8 sets, daily range): BP systolic 92–144; BP diastolic 52–78; PULSE 68–72; O2SAT 92–97; BMI 21.9
[2023-08-10] MEDS: CARDIZEM 5 MG IV ×2 (01:31→04:05)
[2023-08-10 05:57] LABS: % Basophils 0.4 % (0-2); % Immature Granulocytes 0.3 % (0-0.5); % Lymphocytes 12.2 % (20.5-51.1); % Monocytes 19.9 % (1.7-9.3); % Neutrophils 64.2 % (42.2-75.2); Absolute Eosinophils 0.3 10^3/uL (0-0.7); Absolute Lymphocytes 1.1 10^3/uL (1.2-3.4); Absolute Monocytes 1.9 10^3/uL (0.1-0.6); Hematocrit 36.8 % (39.0-52.0); Hemoglobin 12.5 g/dL (13.0-18.0); Mean Corpuscular Hgb 31.9 pg (27.0-31.0); Mean Corpuscular Volume 93.9 fL (80.0-94.0); Mean Platelet Volume 10.8 fL (7.4-10.4); Nucleated Red Blood Cells % 0 % (-); Platelet Count 133 10^3/uL (130-400); Red Blood Cell Count 3.92 10^6/uL (4.70-6.10); Red Cell Dist. Width 13.9 % (11.5-14.5); White Blood Cell Count 9.3 10^3/uL (4.8-10.8)
[2023-08-10 06:13] LABS: Blood Urea Nitrogen 21 mg/dl (9-20); Calcium 8.1 mg/dl (8.4-10.2); Carbon Dioxide 34 mmol/L (22-30); Chloride 96 mmol/L (98-107); Estimated Creatinine Clearance 57 ml/min; Glucose 102 mg/dl (70-99); Magnesium 2.1 mg/dl (1.6-2.3); Potassium 4.1 mmol/L (3.5-5.1); Sodium 134 mmol/L (135-145); eGFR > 60.00
[2023-08-10 08:52] LABS: Troponin I 0.174 ng/ml
[2023-08-10] MEDS: ELIQUIS 5 MG PO ×2 (09:04→22:57)
[2023-08-10] MEDS: CARDIZEM CD 180 MG PO (09:04)
[2023-08-10] MEDS: LASIX 20 MG IV (09:04)
[2023-08-10] MEDS: FEOSOL PO (09:04)
[2023-08-10] MEDS: PROTONIX 40 MG PO (09:05)
[2023-08-10] MEDS: TRANDATE PO (09:05)
--- NOTE | 2023-08-10 09:14 | W.PN.CD ---
Addendum entered and electronically signed by Ernst Acosta MD 08/10/23 11:54:
I saw and examined the patient.
The [employer]'s note was reviewed and I agree with the note.
Overall patient is feeling better than yesterday breathing comfortably. Low right chest sensation has significantly improved. Still in A-fib with some mildly increased rates. Appears to have had improvement with additional diuresis.
-Continue Lasix 20 mg IV
-Monitor A-fib rates
-Plan for cardioversion on Saturday
-If he has an increase in the amount of chest discomfort then patient may need additional anti-inflammatory and would consider use of colchicine
Original Note:
Today's Communication / Plan
-
Wean O2.
Monitor HR's
Pt. would like to go home today. Discussed will need to see how HR 's rates are, O2 needs to be weaned, and assess for recurrent symptoms.
Will need eventual cardioversion as well.
Impression / Plan
-
SOB:
- likely r/t volume post ablation. He noted weight went up at home as well. Feels better with lasix.
- Con't lasix 20mg daily , at home was taking Sat/Sat/Sat
- echo stable without pericardial effusion.
Chest discomfort:
-Improved with diuresis , now gone.
-troponin peaked 0.272.
Abnormal troponin:
-suspect non-ischemic myocardial injury related to recent procedure
- CP resolved with diuresis.
AFIB/Atrial flutter:
-s/p recent PVI- came in in afib, some atrial flutter and AF now
-continue CCB/BB- hold this am labetalol secondary to lower BP
-on Eliquis for OAC
-will need cardioversion. Pt was hoping to go home today. Will need to see if rates are stable to defer
Hyponatremia:
-improving.
CAD with hx stenting 2009:
-on Eliquis, statin, BB
-low risk stress test 2020
Subjective:
Pt feels much better today. SOB less. No further Cp or back pain.
Physical Exam
Vital Signs/Labs
Vital Signs
Temp Pulse Resp BP Pulse Ox
97.8 F 69 18 106/61 96
08/10/23 07:00 08/10/23 07:00 08/10/23 07:00 08/10/23 09:04 08/10/23 07:00
08/09/23 08/10/23 08/11/23
06:59 06:59 06:59
Actual Weight 55.973 kg
08/10/23 05:17
08/10/23 05:17
Magnesium 2.1 mg/dl (1.6-2.3) 08/10/23 05:17
08/09/23
14:14
Mvh-[id number]-Pumqopynmxx Pept 1360
LAB Results
08/09/23 08/09/23 08/10/23
14:14 17:18 08:10
Troponin I 0.272 H* 0.244 H* 0.174 H*
Physical Exam
Constitutional: No acute distress
Cardiovascular: Rhythm/rate is irregular (mild tachycardia)
Respiratory: Respiratory effort normal and Lungs clear to auscul. (decreased bases )
Neuro/Psych: AO x 3
Data Reviewed
-
Date of Service: August 10, 2023
EKG: Other (Tele: AF 100's )
Echo: Report Reviewed by me (08/09/23 Normal left ventricular size, and systolic function. LV ejection fraction is 60-65% . Mild aortic regurgitation. Trace mitral regurgitation. Trace tricuspid regurgitation.) and Other
Labs: Labs Reviewed by me
--- NOTE | 2023-08-10 10:21 | W.PN.HOSP.TC ---
Today's Communication/Plan
-
see A/P
Assessment / Plan
Assessment / Plan
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 Martinez) with superimposed restrictive lung
disease; p/w CP and SOB.
Pt had an afib ablation/PVI on 08/06/[address] Celaya. The next night, he felt SOB and had chest discomfort/ ache, which worsened over the next few days. His CP is worse with lying flat, and relieved with leaning forward.
He also has had 6 lb weight gain and increased LE edema since the ablation.
In the ER, he was noted to be in A-fib/atrial flutter.
Cardiology was consulted, and patient was admitted for likely pericarditis with acute heart failure.
A/P:
# Acute on chronic diastolic heart failure
Echo on admission unrevealing: EF 60-65%. Without pericardial effusion. Compared to the previous echo there is no significant change.
Cont IV Lasix 20 mg daily, Monitor daily weight and electrolyte
Cardiology on board
# Likely pericarditis , Chest pain has resolved
Echo unrevealing
Defer colchicine to card. Likely would not need now with resolved CP
Cardiology on board
# Persistent atrial fibrillation.
# Hypertension.
Rate controlled
Continue prior to admission Cardizem
SPOKE MAKER labetalol on hold
Continue prior to admission Eliquis
Cardiology on board
# Hyperlipidemia.
# Coronary artery disease status post PAMELA to mid RCA and OM 06/11/2009.
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
# Asthma, mod intermittent
On daily Trelegy
# Restrictive lung disease.
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
# Scoliosis.
# Gastroesophageal reflux disease.
PPI
# Hyperlipidemia
Cont Lipitor.
Full code
DVT ppx: SPOKE MAKER Eliquis
DW RN
Anticipated Discharge: > 48 hours
Subjective/Interval History
-
Date of Service: August 10, 2023
Objective Data
-
Labs:
Laboratory Results
08/10/23
05:17
WBC 9.3
Hgb 12.5 L
Hct 36.8 L
Plt Count 133
Sodium 134 L
Potassium 4.1
Chloride 96 L
Carbon Dioxide 34 H
BUN 21 H
Creatinine 0.9
Glucose 102 H
Calcium 8.1 L
Vital Signs:
Vital Signs
Temp Pulse Resp BP Pulse Ox
36.6 C 69 18 106/61 96
08/10/23 07:00 08/10/23 07:00 08/10/23 07:00 08/10/23 09:04 08/10/23 07:00
I&O
08/09/23 08/10/23 08/11/23
06:59 06:59 06:59
Intake Total 120 / 120
Output Total 1949
Balance -1829 / -1829
Review of Systems
-
Respiratory: Denies Trouble Breathing
Cardiac: Denies Chest Pain (resolved )
Physical Exam
-
General: Well Developed, Well Nourished, Comfortable and Appears Chronically Ill
HEENT: Moist Mucous Membranes and Oxygen (2L NC)
Respiratory: Clear to Auscultation and Non Labored Respirations; Negative Accessory Resp Muscle Use
Cardiac: S1/S2, Irregular Rhythm and Tachycardic
GI: Soft, Nontender, Nondistended and Normal Bowel Sounds
Neuro: Awake and AO x 3
Psych: Calm and Intact Judgement/Insight
Data Reviewed
-
Medical Tests (Nuc Med, Echo etc): Report Reviewed by me (echo)
Labs: Labs Reviewed by me
[2023-08-10] MEDS: PEPCID 20 MG PO ×2 (12:02→22:57)
[2023-08-10] MEDS: TYLENOL 650 MG PO ×2 (12:52→22:56)
[2023-08-10] MEDS: SPIRIVA RESPIMAT 2.5 MCG 2 PUFF INH (19:42)
[2023-08-10] MEDS: SYMBICORT 80/4.5 MCG INHALER 2 PUFF INH (19:42)
[2023-08-10] MEDS: TRANDATE 200 MG PO (23:00)
[2023-08-11 03:45] VITALS: BP 109/75
[2023-08-11 06:00] VITALS: BMI 22.2
[2023-08-11 06:51] LABS: % Basophils 0.5 % (0-2); % Eosinophils 4.1 % (0-6); % Immature Granulocytes 0.4 % (0-0.5); % Lymphocytes 14.1 % (20.5-51.1); % Monocytes 18.1 % (1.7-9.3); % Neutrophils 62.8 % (42.2-75.2); Absolute Eosinophils 0.3 10^3/uL (0-0.7); Absolute Lymphocytes 1.1 10^3/uL (1.2-3.4); Absolute Monocytes 1.4 10^3/uL (0.1-0.6); Absolute Neutrophils 4.7 10^3/uL (1.4-6.5); Hematocrit 36.6 % (39.0-52.0); Hemoglobin 12.3 g/dL (13.0-18.0); Mean Corp Hgb Conc. 33.6 g/dL (33.0-37.0); Mean Corpuscular Hgb 31.1 pg (27.0-31.0); Mean Corpuscular Volume 92.7 fL (80.0-94.0); Mean Platelet Volume 10.8 fL (7.4-10.4); Nucleated Red Blood Cells % 0 % (-); Platelet Count 145 10^3/uL (130-400); Red Blood Cell Count 3.95 10^6/uL (4.70-6.10); Red Cell Dist. Width 13.7 % (11.5-14.5); White Blood Cell Count 7.5 10^3/uL (4.8-10.8)
[2023-08-11 07:00] VITALS: BP 108/69
[2023-08-11 07:22] LABS: Blood Urea Nitrogen 20 mg/dl (9-20); Calcium 8.2 mg/dl (8.4-10.2); Carbon Dioxide 33 mmol/L (22-30); Chloride 95 mmol/L (98-107); Estimated Creatinine Clearance 73 ml/min; Glucose 98 mg/dl (70-99); Magnesium 2.1 mg/dl (1.6-2.3); Sodium 133 mmol/L (135-145); eGFR > 60.00
[2023-08-11] MEDS: TRANDATE 200 MG PO (08:17)
[2023-08-11] MEDS: LIPITOR PO (08:17)
[2023-08-11] MEDS: ELIQUIS 5 MG PO (08:18)
[2023-08-11] MEDS: FEOSOL 325 MG PO (08:18)
[2023-08-11] MEDS: LASIX 20 MG IV (08:18)
[2023-08-11] MEDS: PROTONIX 40 MG PO (08:18)
[2023-08-11] MEDS: CARDIZEM CD PO (08:18)
[2023-08-11 11:00] VITALS: BP 117/71
--- NOTE | 2023-08-11 11:29 | W.PN.CD ---
Today's Communication / Plan
-
Back in sinus rhythm. Patient requesting to go home. Currently without shortness of breath. Ambulating in the hallway without a problem.
He still has some mild residual edema and considering presentation I do favor keeping him on daily Lasix 20 mg a day rather than just Saturday and Saturday.
He will follow daily weights
Follow-up basic metabolic profile next week and the week after
Additional follow-up in our office and with Dr. Celaya regarding A-fib. Patient will continue to monitor heart rates and blood pressures at home.
Impression / Plan
-
SOB:
-Resolved. Improved after diuresis
- likely r/t volume post ablation. He noted weight went up at home as well.
- Con't lasix 20mg daily , at home was taking Sat/Sat/Sat
- echo stable without pericardial effusion.
-Patient also back in sinus rhythm today but shortness of breath improved prior to this
Chest discomfort: Appears to be postprocedural. Patient currently without pain also appeared to get better as he was diuresed. No evidence at this point and he has pericarditis.
-troponin peaked 0.272. Suspect non-SC troponin which may be secondary to recent procedure.
Abnormal troponin:
-suspect non-ischemic myocardial injury related to recent procedure
- CP resolved with diuresis.
AFIB/Atrial flutter:
-s/p recent PVI- came in in afib, some atrial flutter and AF now
-continue CCB/BB P
-on Eliquis for OAC
-Spontaneously converted to sinus. Now that heart failure is treated we will see if he has recurrent A-fib. If he has recurrent symptomatic A-fib then he may need additional antiarrhythmic therapy. He has been on sotalol in the past which could
be an option although it may require rehospitalization. Also could consider use of short-term amnio. Will defer to EP/Dr. Celaya who will be following as an outpatient
Hyponatremia: Treatment per hospitalist.
CAD with hx stenting 2010:
-on Eliquis, statin, BB
-low risk stress test 2020
Subjective:
Pt feels much better today. SOB less. No further Cp or back pain. Wants to go home. In sinus rhythm
Physical Exam
Vital Signs/Labs
Vital Signs
Temp Pulse Resp BP Pulse Ox
97.8 F 74 18 133/77 95
08/11/23 07:00 08/11/23 08:18 08/11/23 07:00 08/11/23 08:18 08/11/23 08:30
08/10/23 08/11/23 08/12/23
06:59 06:59 06:59
Actual Weight 55.973 kg 56.926 kg
08/11/23 06:07
08/11/23 06:07
Magnesium 2.1 mg/dl (1.6-2.3) 08/11/23 06:07
08/09/23
14:14
Qyb-H-Illknwphoyf Pept 1360
LAB Results
08/09/23 08/09/23 08/10/23
14:14 17:18 08:10
Troponin I 0.272 H* 0.244 H* 0.174 H*
Physical Exam
Constitutional: No acute distress
Cardiovascular: Rhythm & rate is regular
Respiratory: Respiratory effort normal
GI: Soft
Neuro/Psych: Alert
Data Reviewed
-
Date of Service: August 11, 2023
EKG: Report Reviewed by me
X-Ray/CT/US/MRI/NUC/PET: Report Reviewed by me
Medical Tests (PFT, Pathology etc): Report Reviewed by me
--- NOTE | 2023-08-11 11:29 | W.PN.HOSP.TC ---
Addendum entered and electronically signed by Zulay Leon MD 08/11/23 14:32:
total DC time 35 min
Original Note:
Today's Communication/Plan
-
DC home today
Assessment / Plan
Assessment / Plan
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 Martinez) with superimposed restrictive lung
disease; p/w CP and SOB.
Pt had an afib ablation/PVI on 08/06/[address] Celaya. The next night, he felt SOB and had chest discomfort/ ache, which worsened over the next few days. His CP is worse with lying flat, and relieved with leaning forward.
He also has had 6 lb weight gain and increased LE edema since the ablation.
In the ER, he was noted to be in A-fib/atrial flutter.
Cardiology was consulted, and patient was admitted for likely pericarditis with acute heart failure.
A/P:
# Acute on chronic diastolic heart failure
Echo on admission unrevealing: EF 60-65%. Without pericardial effusion. Compared to the previous echo there is no significant change.
IV Lasix 20 mg daily to PO upon discharge, check BMP in 1 week with result to PCP
Cardiology on board
# Likely pericarditis , Chest pain has resolved
Echo unrevealing
Given CP has resolved, no need for antiinflammatory/colchicine.
Cardiology on board
# Persistent atrial fibrillation.
# Hypertension.
Rate controlled
Continue prior to admission Cardizem
RESEARCH AND DEVELOPMENT TESTER labetalol on hold
Continue prior to admission Eliquis
Cardiology on board
# Hyperlipidemia.
# Coronary artery disease status post PAMELA to mid RCA and OM 06/11/2009.
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
# Asthma, mod intermittent
On daily Trelegy
# Restrictive lung disease.
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
# Scoliosis.
# Gastroesophageal reflux disease.
PPI
# Hyperlipidemia
Cont Lipitor.
Full code
DVT ppx: RESEARCH AND DEVELOPMENT TESTER Eliquis
DW
Card
Anticipated Discharge: Today
Subjective/Interval History
-
Date of Service: August 11, 2023
Objective Data
-
Labs:
Laboratory Results
08/11/23
06:07
WBC 7.5
Hgb 12.3 L
Hct 36.6 L
Plt Count 145
Sodium 133 L
Potassium 4.0
Chloride 95 L
Carbon Dioxide 33 H
BUN 20
Creatinine 0.7
Glucose 98
Calcium 8.2 L
Vital Signs:
Vital Signs
Temp Pulse Resp BP Pulse Ox
36.6 C 74 18 133/77 95
08/11/23 07:00 08/11/23 08:18 08/11/23 07:00 08/11/23 08:18 08/11/23 08:30
I&O
08/10/23 08/11/23 08/12/23
06:59 06:59 06:59
Intake Total 120 / 120 1260 / 1260
Output Total 1950 / 1950 1830 / 1830
Balance -1830 / -1830 -570 / -570
Review of Systems
-
Respiratory: Denies Trouble Breathing
Cardiac: Denies Chest Pain (resolved )
Physical Exam
-
General: Well Developed, Well Nourished and Comfortable
HEENT: Negative Oxygen
Respiratory: Clear to Auscultation and Non Labored Respirations; Negative Accessory Resp Muscle Use
Cardiac: Regular Rhythm and S1/S2
GI: Soft, Nontender, Nondistended and Normal Bowel Sounds
Musculoskeletal: Edema, Right Lower Extrem (improved ) and Edema, Left Lower Extrem (improved )
Neuro: Awake and AO x 3
Psych: Calm and Intact Judgement/Insight
Data Reviewed
-
Labs: Labs Reviewed by me
[2023-08-11] MEDS: CARDIZEM CD 180 MG PO (11:41)
--- NOTE | 2023-08-11 12:41 | CM ---
Spoke with pt at bedside
Lives with in a 2 story home
Performs adl's, drives, some assist from
DME - none in home
SNF/HH - denies past
Has ride at d/c
PCP - Dr Alessandra Santillan
Pharm - [facility]
For d/c today
Discussed IMM
Plan - home no needs anticipated
[2023-08-11] MEDS: PEPCID 20 MG PO (13:27)
--- NOTE | 2023-08-11 14:15 | W.DCSUMMARY ---
Discharge Summary
Discharge Data
Date of Admission: 08/09/23
Date of Discharge: 08/11/23
-
Pending Results: No
Hospital Course
Principal Diagnosis:
Acute on chronic diastolic heart failure
Atrial fibrillation which spontaneously converted to sinus rhythm
Possible mild pericarditis, which resolved on its own
Chronic Diagnoses:�
Recent ablation/PVI performed on 08/06/[address] Celaya.
Hypertension.
Hyperlipidemia.
Coronary artery disease status post stent placement to mid RCA and OM 06/11/2009.
Stroke April 2021, left cerebral, right cerebellar, embolic with residual balance deficit.
Asthma, likely mild persistent on daily Trelegy
Restrictive lung disease.
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
Scoliosis.
Gastroesophageal reflux disease.
Hyperlipidemia on Lipitor.
Consultations:�
Cardiology
Procedures:�
None
Clinical course:�
This is a 77-year-old male, with past medical history as stated above, who presented with chest pain (worse with lying flat and improved with leaning forward), associated with shortness of breath.
Of note, the patient had a recent ablation/PVI performed on 08/06/[address] Celaya.
Problem 1:
Acute on chronic diastolic heart failure.
His echo this admission was unrevealing: EF 60-65%, without pericardial effusion, and compared to the previous echo there is no significant change.
He received IV Lasix 20 mg daily during his hospital stay, and was discharged with oral Lasix 20 mg daily to continue going forward.
He can check BMP in 1 week with result to his PCP/global transportation manager.
Problem 2:
Likely mild pericarditis, chest pain resolved on its own.
His echo was unrevealing (as stated above).
Given his chest pain resolved on its own, there would be no need for anti-inflammatory such as colchicine.
Problem 3:
Atrial fibrillation which spontaneously converted to sinus rhythm.
He can continue with his prior to admission Cardizem, labetalol and Eliquis.
As for the rest of his medical problems, they were stable during his hospital stay.
Discharge Plan
-
Patient Disposition: Home (Routine Discharge)
Discharge Diagnosis/Procedures: Acute on chronic diastolic heart failure; atrial fibrillation- spontaneously converted to normal sinus rhythm; chest pain with likely mild pericarditis (this has resolved)
Condition: Fair
Diet: As tolerated, Low Sodium and Restrict fluids to 48 oz
Activity: As tolerated
Driving Restrictions: As prior to admission
Blood Work: BMP in 1 week, result to PCP
Referrals:
Alessandra Burr MD [Family Provider] - in less than 1 week
Additional Discharge Medication Instructions: take lasix 20 mg daily going forward
Prescriptions:
Continued
ascorbic acid (vitamin C) [Vitamin C] 500 MG tablet
500 mg PO DAILY
calcium carbonate [Oyster Shell Calcium 500] 500 MG tablet
500 mg PO DAILY
famotidine 20 MG tablet
20 mg PO BID@1200,2200
atorvastatin 40 MG tablet
40 mg PO QPM
zinc sulfate 220 MG capsule
220 mg PO .2 TIMES A WEEK
vitamin A 2,400 mcg Capsule
2,400 mcg PO TUFR@0800
acetaminophen 650 mg Tablet Extended Release
1,300 mg PO BIDPRN PRN (Reason: mild pain)
cholecalciferol (vitamin D3) [Vitamin D3] 25 mcg (1,000 unit) Tablet
25 mcg PO Q48H
diltiazem HCl 180 mg Capsule,Extended Release 24 Hr
180 mg PO DAILY
Trelegy Ellipta 100-62.5-25 mcg Blister With Device
1 inh INHALATION R HS
labetalol 200 mg Tablet
200 mg PO BID
therapeutic multivitamin Tablet
1 tab PO DAILY
azelastine 137 mcg (0.1 %) Aerosol,[place]
2 spray INTRANASAL DAILYPRN PRN (Reason: allergies)
fluticasone propionate 50 mcg/actuation [place],Suspension
1 spray INTRANASAL DAILY PRN (Reason: allergies)
coQ10 (ubiquinol) 200 mg Capsule
200 mg PO DAILY
Eliquis 5 MG tablet
5 mg PO BID
albuterol sulfate 90 mcg/actuation Hfa Aerosol Inhaler
2 puff INHALATION R Q4HPRN PRN (Reason: sob) Qty: 1 0RF
ferrous sulfate [iron] 325 mg (65 mg iron) Tablet
325 mg PO DAILY
pantoprazole 40 mg tablet,delayed release (DR/EC)
40 mg PO DAILY Qty: 14 0RF
Changed
furosemide [Lasix] 20 mg tablet
20 mg PO DAILY Qty: 30 0RF
Discharge Orders:
Discharge Patient (As Directed); Ordered 08/11/23
Ordered By: Zulay Leon
Discharge Date and Time
Print Language: THAI
== END 2023-08-11 14:52 | disposition home or self-care (01) | DRG 291 ==
LOC: 3 WEST ACU 18:26
PROVIDERS: Emergency Medicine; Physician Assistant; ADMITTING PHYSICIAN Internal Medicine; CONSULT PHYSICIAN Internal Medicine Cardiovascular Disease; EMERGENCY PHYSICIAN Student in an Organized Health Care Education/Training Program; FAMILY PHYSICIAN Student in an Organized Health Care Education/Training Program
DX: I11.0 Hypertensive heart disease with heart failure (principal); I50.33 Acute on chronic diastolic (congestive) heart failure; E87.1 Hypo-osmolality and hyponatremia; I48.19 Other persistent atrial fibrillation; I31.9 Disease of pericardium, unspecified; I48.92 Unspecified atrial flutter; I5A Non-ischemic myocardial injury (non-traumatic); E78.00 Pure hypercholesterolemia, unspecified; I27.20 Pulmonary hypertension, unspecified; J44.89 Other specified chronic obstructive pulmonary disease; J98.4 Other disorders of lung; I25.10 Atherosclerotic heart disease of native coronary artery without angina pectoris; K22.70 Barrett's esophagus without dysplasia; E61.1 Iron deficiency; K21.9 Gastro-esophageal reflux disease without esophagitis; Z79.01 Long term (current) use of anticoagulants; Z86.73 Personal history of transient ischemic attack (TIA), and cerebral infarction without residual deficits; Z95.5 Presence of coronary angioplasty implant and graft; Z88.1 Allergy status to other antibiotic agents; Z88.5 Allergy status to narcotic agent; Z98.1 Arthrodesis status; Z79.51 Long term (current) use of inhaled steroids
CPT/HCPCS: 71046; 80048; 80053; 83690; 83735; 83880; 84484; 85025; 93005; 93306; 94640; 97162; 97166; 99285

== ENCOUNTER 2023-10-21 13:12 | Inpatient (IN) | payer OTHER, SELFPAY ==
[2023-10-21] VITALS (14 sets, daily range): BP systolic 134–161; BP diastolic 71–96; PULSE 2–82; BMI 20.3; BMI 22.9
--- NOTE | 2023-10-21 10:28 | ED.GENMED ---
History of Present Illness
General
Chief Complaint: Breathing Problem
Source: patient
Exam Limitations: none
Time Seen by Provider: 10/21/23 10:19
Nursing documentation reviewed up to this point in time: agreed with
History of Present Illness
History of Present Illness:
78-year-old male presents emergency room complaining of shortness of breath, cough and chills ongoing for the past day. He has history of asthma, and this does feel similar.
Past History
Past History
ED Past Medical History: Arrthythmia, CAD, CVA, GERD and HTN
ED Past Surgical History: Cardiac, Orthopedic and Other (The patient has a history of 2 spinal fusions, and stents for coronary artery disease. )
Social History
Tobacco: Non-smoker
Alcohol: None
Drug: None
Personal:
Living: with family
Review of Systems
Review of Systems
Allergies reviewed?: Yes
Constitutional: Reports chills
EENT: Reports no symptoms
Respiratory: Reports cough and trouble breathing
Cardiac: Reports no symptoms
ABD/GI: Reports no symptoms
: Reports no symptoms
Musculoskeletal: Reports no symptoms
Skin: Reports no symptoms
Neurological: Reports no symptoms
Endocrine: Reports no symptoms
Hematologic/Lymphatic: Reports no symptoms
Psychiatric: Reports no symptoms
Phy Exam
Physical Exam
Physical Exam:
Physical Exam
General: Moderate respiratory distress, afebrile
Neck: supple. no meningeal signs. normal posterior pharynx
Heart: s1/s2 regular rate and rhythm, no murmur. equal radial
pulses.
HEENT: Pupils equal round reactive to light, EOMI
Lungs: Moderate respiratory distress. Decreased breath sounds bilaterally
Abdomen: normal bowel sounds. not tender. no CVAT
Neuro: alert and oriented. no focal neurological deficits cranial nerves II through XII intact
Skin: no rash
Psychiatric: well kept. interactive and cooperative
Extremities: no edema. no calf tenderness. negative homans. good distal pulses
Scores
Heart Failure Risk
Heart Failure Risk Score: Not Applicable
Course
Orders/Labs/Results
Orders:
Orders
10/21/23 10:19
EKG [Electrocardiogram (*1)] Urgent
Reason for Study: Shortness of Breath
EKG- Treatment ONCE
10/21/23 10:25
Cardiac Monitoring- Treatment ONCE
IV Insert/Care/Rem.- Treatment PRN
Dexamethasone Sod Phosphate [Decadron] 10 mg IV NOW STA
Ipratropium/Albuterol Sulfate [Duoneb] 3 ml INH R NOW STA
Pulse Ox/cont/shift [RESP] Stat
Quantity: 1
10/21/23 10:26
CR Chest Portable - 1 View Urgent
Comment:
Reason For Exam: short of breath
Reason Study Needs to be Portable: Patient Unstable
10/21/23 10:31
Bipap [RESP] Urgent
Patient to use own unit?: Yes
Inspiratory Pressure (cm H2O): 10
Expiratory Pressure (cm H2O): 5
10/21/23 10:36
Complete Blood Count/With Diff Urgent
Comprehensive Metabolic Panel Urgent
Hepatitis C Antibody Urgent
Comment: HEP C ANTIBODY ADDED ON BY FLOOR 2:30PM 10-21-23
Lactic Acid Q4H
Comment: CANCEL 2nd LACTIC ACID IF 1st LACTIC ACID IS LESS THAN 2
NT-proBNP Urgent
Troponin I Urgent
Blood Culture Q30M
NEW Source: Blood/Venous
Specimen Description:
Blood Culture Q30M
NEW Source: Blood/Venous
Specimen Description:
10/21/23 11:19
0.9% Sodium Chloride 1000 ml [Nss] 1,000 ml IV BOLUS
10/21/23 11:34
COVID-19 Antigen Urgent
Source: Nasal Swab
Influenza A+B Rapid Molecular Urgent
NEW Source: Nasal Swab
Specimen Description:
10/21/23 11:41
Ipratropium/Albuterol Sulfate [Duoneb] 3 ml .ROUTE .STK-MED ONE
10/21/23 11:43
Ipratropium/Albuterol Sulfate [Duoneb] 3 ml INH R NOW ONE
10/21/23 12:12
PULMONARY CONSULT Urgent
Consulting Provider: Rei Osborn
Was physician already notified: Yes
Reason for consult: acute respiratory insufficiency, asthma exacerbation
10/21/23 12:36
US Abdomen Complete/Upper Stat
Comment:
Reason For Exam: epigastric pain, elevated LFT,BIli
10/21/23 12:37
Admit/Transfer Patient As Directed
Co-Sign Provider:
Level of Care: Inpatient admission
Assign to:: IMU- Intermediate Care
Physician / Group: martha
Diagnosis: asthma exacerbation
Reason for Hospitalization: asthma exacebation
Expected length of stay greater than two midnights?: Yes
ELOS- Estimated Length of Stay in days: 3
I certify the patient meets the requirements for IP care: Yes
10/21/23 12:40
Code Status As Directed
Resuscitation Status: Do not resuscitate
Reached after discussion with pt or family/Healthcare POA: Yes
10/21/23 12:41
DNR Bracelet Application ONCE
10/21/23 12:51
Doxycycline Hyclate [Vibramycin] 100 mg 0.9% Sodium Chloride 250 ml [Nss] 250 ml IV NOW
10/21/23 13:07
Add On- LAB Urgent
Tests Added?: Procalcitonin
10/21/23 14:25
Lactic Acid Q4H
Comment: CANCEL 2nd LACTIC ACID IF 1st LACTIC ACID IS LESS THAN 2
Abnormal Lab Results
10/21/23
10:36
WBC 11.8 H 10^3/uL
(4.8-10.8)
RBC 4.46 L 10^6/uL
(4.70-6.10)
MCV 95.3 H fL
(80.0-94.0)
MCHC 32.2 L g/dL
(33.0-37.0)
MPV 10.7 H fL
(7.4-10.4)
Abs Immat Gran (auto) 0.1 H 10^3/uL
(0-0.05)
Absolute Neuts (auto) 11.0 H 10^3/uL
(1.4-6.5)
Absolute Lymphs (auto) 0.4 L 10^3/uL
(1.2-3.4)
Neutrophils % 92.8 H %
(42.2-75.2)
Lymphocytes % 3.7 L %
(20.5-51.1)
Glucose 124 H mg/dl
(70-99)
Lactic Acid 3.7 H mmol/L
(0.7-2.0)
Total Bilirubin 2.4 H mg/dl
(0.2-1.3)
AST 284 H U/L
(17-59)
ALT 172 H U/L
(0-50)
Alkaline Phosphatase 365 H U/L
(38-126)
10/21/23 10:36
10/21/23 10:36
Vital Signs
Initial and Last Documented VS:
Initial Vital Signs
Temp Pulse Resp BP Pulse Ox
99.9 F 88 32 161/87 88
10/21/23 10:11 10/21/23 10:11 10/21/23 10:11 10/21/23 10:11 10/21/23 10:11
Last Documented Vital Signs
Temp Pulse Resp BP Pulse Ox
99.9 F 79 15 138/77 98
10/21/23 10:11 10/21/23 13:00 10/21/23 13:00 10/21/23 13:00 10/21/23 13:00
MDM/Problems Addressed
Differential Diagnosis Includes:
Pneumonia, pneumothorax, CHF, asthma exacerbation
MDM/Problems Addressed:
78-year-old male with asthma exacerbation. No focal pneumonia seen. Respiratory insufficiency. Improving on BiPAP Decadron and DuoNebs. Admit to IMU.
Chronic conditions affecting care: Asthma
Acute Exacerbation and/or Progression of Chronic Illness: Asthma
*Radiology
Radiology exam reviewed: preliminary read by ED provider (Chest x-ray no acute findings)
*Pulse Oximetry
Patient hypoxic: yes
*EKG
Interpreted by ED Provider?: Yes
EKG Intrepretation Date: 10/21/23
EKG Intrepretation Time: 10:25
Interpretation: abnormal
Comparison EKG: changes noted
Heart Rate: 89
Rate: normal
Rhythm: sinus
[place]: normal axis
Interval: normal interval
QRS Pattern: normal QRS
Ischemia: non-specific ST changes
*Piano Mover Interpretation
Rate: normal
Interpretation: normal
Heart Rate: 88
Rhythm: sinus
*Critical Care Note
Total Time (30-74mins, 75-104mins- exclusive of procedures): 30
comment:
Critical care statement: A total of 30 minutes of critical care time was provided for this patient. This includes management of unstable vital signs, evaluation of the patient at bedside, reviewing the patient's pertinent medical records, discussion
with consultants, review of old EKGs and review of pertinent medical records. This time with separate from time utilized to perform the aforementioned documented procedures
Data Reviewed
Review of Other/Old Records Reveals: Radiology Studies (Prior chest x-ray showed left diaphragm paralysis)
Source: records
Patient Management
Discussion with other providers: Hospitalist and Loom Starter (Pulmonology)
Escalation/DeEscalation of care consider admission/obs:
Admit indicated
ED Attending Note
-
Portions of this chart may have been created with voice recognition software.� Occasional wrong word or��sound alike� substitutions may have occurred due to the inherent limitations of voice recognition software.
Discharge Plan
Departure
Patient Disposition: Admit
Date of Disposition: 10/21/23
Time of Disposition: 11:25
Admit to: IMU
Presentation/result/management discussed w/ accepting MD/DO: Hospitalist
Condition: Fair
Discharge Problem:
Acute respiratory insufficiency, Asthma exacerbation
Interventions
Interventions:
*Risk Screen - Suicide Last Done: 10/21/23 11:00
*General Assessment Last Done: 10/21/23 11:00
*Neglect/Abuse Screening Last Done: 10/21/23 11:00
ED- Fall Risk Assessment Last Done: 10/21/23 11:00
*ED COVID-19 Vaccine History Last Done: 10/21/23 11:00
JI-Haiekk-Ttvwyfixgm Assessment Last Done: 10/21/23 11:00
ED- Cardiac Assessment Last Done: 10/21/23 11:00
ED- Pulmonary Assessment Last Done: 10/21/23 11:00
[2023-10-21] MEDS: DUONEB 3 ML INH ×3 (10:34→16:26)
[2023-10-21] MEDS: DECADRON 10 MG IV (10:34)
[2023-10-21 10:59] LABS: % Basophils 0.3 % (0-2); % Eosinophils 0.3 % (0-6); % Immature Granulocytes 0.5 % (0-0.5); % Lymphocytes 3.7 % (20.5-51.1); % Monocytes 2.4 % (1.7-9.3); % Neutrophils 92.8 % (42.2-75.2); Absolute Immature Granulocytes 0.1 10^3/uL (0-0.05); Absolute Lymphocytes 0.4 10^3/uL (1.2-3.4); Absolute Monocytes 0.3 10^3/uL (0.1-0.6); Hematocrit 42.5 % (39.0-52.0); Hemoglobin 13.7 g/dL (13.0-18.0); Mean Corp Hgb Conc. 32.2 g/dL (33.0-37.0); Mean Corpuscular Hgb 30.7 pg (27.0-31.0); Mean Corpuscular Volume 95.3 fL (80.0-94.0); Mean Platelet Volume 10.7 fL (7.4-10.4); Nucleated Red Blood Cells % 0 % (-); Platelet Count 158 10^3/uL (130-400); Red Blood Cell Count 4.46 10^6/uL (4.70-6.10); White Blood Cell Count 11.8 10^3/uL (4.8-10.8)
[2023-10-21 11:05] LABS: Lactic Acid 3.7 mmol/L (0.7-2.0)
--- NOTE | 2023-10-21 11:08 | EDRN ---
the pt was received from the waiting room to ED Bed #8, the pt was tachypnic, SOB, Sp02 was 91% on 6L NC, Dr. Payne at the pts bedside, PIV's placed and labs drawn and sent, breathing treatment started and respiratory called to come to the pts
bedside with Bipap per the provider, the pt was placed on Bipap 12/5 6L and sp02 came up to 97%, the pt is resting in stretcher in the lowest position, side rails up x2, call santana within reach, HOB elevated, will continue to monitor the pt closely
[2023-10-21 11:14] LABS: ALT (SGPT) 172 U/L (0-50); AST (SGOT) 284 U/L (17-59); Albumin 4.2 g/dl (3.5-5.0); Alkaline Phosphatase 365 U/L (38-126); Blood Urea Nitrogen 20 mg/dl (9-20); Calcium 8.7 mg/dl (8.4-10.2); Carbon Dioxide 28 mmol/L (22-30); Chloride 98 mmol/L (98-107); Estimated Creatinine Clearance 67 ml/min; Glucose 124 mg/dl (70-99); Potassium 5.1 mmol/L (3.5-5.1); Sodium 137 mmol/L (135-145); Total Bilirubin 2.4 mg/dl (0.2-1.3); Total Protein 7.1 g/dl (6.3-8.2); eGFR > 60.00
[2023-10-21 11:15] LABS: NT-proBNP 563 pg/ml; Troponin I < 0.012 ng/ml
[2023-10-21] MEDS: NSS 1000 IV (11:31)
--- NOTE | 2023-10-21 12:01 | EDRN ---
the pt pressed the call santana and this RN entered the pts room, the pt stated that he was having increased SOB, this RN notified Dr. Payne and respiratory was called to the pts bedside, respiratory titrated the pts Bipap to 15/5, will continue to
monitor the pt closely
--- NOTE | 2023-10-21 12:02 | HPS.HSE ---
Addendum entered and electronically signed by Christina Lam MD 10/21/23 13:44:
see my update note for addendum
Original Note:
Family Physician
-
Family Physician: NO INTERVIEW UNKNOWN
Chief Complaint
-
sob
History of Present Illness
75-year-old with past medical history for CAD, CVA, GERD, hypertension, congestive heart failure, polio, A-fib, hypertension presented to us with short of breath. Patient had a fever of 101 on Saturday. He got better with Tylenol/since then he was
taking Tylenol as needed as needed. Yesterday he felt fine. 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 He came here and got shortness of breath and chills which prompted him to be seen at
ER. patient stated mid sternum pain. denied AYALA, dizzy or syncopal episode. denied chest pain. denied abdominal pain, n,v, d. denied dysuria or hematuria.
patient requiring BIpap. received iv Decadron,nebs in ER. admitting for further management.
Medical History
Past Medical History
Past Medical History: Reports Other
Additional Past Medical History:
HTN
HLD
PAF
CAD
sandip esophagus
Polio
chornic left hemidiaphragm elevation
asthma
cva
chf
Past Surgical History: Reports Other
Additional Past Surgical History:
polypectomy
scoliosis surgery
Cardiac stent
Left inguinal hernia with mesh
Cardiac ablation
Social History
Tobacco: Non-smoker
Alcohol: None
Drug: None
Personal:
Living: With Family
Family History
Family History: Not pertinent
Allergies / Home Medications
Allergies reflects when Allergies were last updated in [x+1].
Home Medications with original date entered in [x+1]
Allergy/Medication List:
Allergies
Allergy/AdvReac Type Severity Reaction Status Date / Time
levofloxacin [From Levaquin] Allergy extreme Verified 10/21/23 10:10
pain in
lower legs
and calves
tramadol Allergy Shortness Verified 10/21/23 10:10
of Breath
Home Medications
ascorbic acid (vitamin C) 500 mg tablet (Vitamin C) 500 mg PO DAILY Supplement 11/06/19
calcium carbonate (Oyster Shell Calcium 500) 500 mg PO DAILY Gastrointestinal issue 05/12/21
famotidine 20 mg tablet 20 mg PO BID@1200,2200 Gastrointestinal issue 05/12/21
atorvastatin 40 mg tablet 40 mg PO QPM High Cholesterol 09/19/21
zinc sulfate 50 mg zinc (220 mg) capsule 220 mg PO .2 TIMES A WEEK Supplement 09/28/21
acetaminophen 650 mg tablet,extended release 1,300 mg PO BIDPRN PRN mild pain 12/25/22
cholecalciferol (vitamin D3) 25 mcg (1,000 unit) tablet (Vitamin D3) 25 mcg PO Q48H@0800 supplement 12/25/22
vitamin A 2,400 mcg capsule 2,400 mcg PO MOWEFR@0800 Supplement 12/25/22
fluticasone fur. 100 mcg-umeclid 62.5 mcg-vilant 25 mcg inhalat.powder (Trelegy Ellipta) 1 inh inhalation R DAILY Lung/Breathing Issues 12/27/22
apixaban 5 mg tablet (Eliquis) 5 mg PO BID atrial fibrillation 04/16/23
azelastine 137 mcg (0.1 %) nasal spray 2 spray intranasal BIDPRN PRN allergies 04/16/23
coQ10 (ubiquinol) 200 mg capsule 200 mg PO DAILY supplement 04/16/23
fluticasone propionate 50 mcg/actuation nasal spray,suspension 2 spray intranasal DAILY PRN allergies 04/16/23
labetalol 200 mg tablet 200 mg PO BID Blood Pressure 04/16/23
therapeutic multivitamin 1 tab PO DAILY Supplement 04/16/23
ferrous sulfate 325 mg (65 mg iron) tablet (iron) 325 mg PO DAILY Supplement 08/06/23
furosemide 20 mg tablet (Lasix) 20 mg PO DAILY Fluid Retention/Swelling #30 tabs 08/11/23
diltiazem HCl 180 mg capsule,extended release 24 hr, controlled (DILT-XR) 180 mg PO NOON 10/21/23
Review of Systems
-
Constitutional: Reports Fever and Chills
EENT: Reports No Symptoms
Respiratory: Reports Trouble Breathing
Cardiac: Reports No Symptoms
Abdomen/GI: Reports No Symptoms
: Reports No Symptoms
Musculoskeletal: Reports No Symptoms
Skin: Reports No Symptoms
Neurological: Reports No Symptoms
Endocrine: Reports No Symptoms
Hematologic/Lymphatic: Reports No Symptoms
Psych: Reports No Symptoms
Physical Exam
Vital Signs
Vital Signs
Temp Pulse Resp BP Pulse Ox
99.9 F 88 28 158/80 99
10/21/23 10:11 10/21/23 11:00 10/21/23 11:00 10/21/23 11:00 10/21/23 11:00
Physical Exam
General: Well Developed, Well Nourished and No Apparent Distress
HEENT: NormoCephalic, Moist mucous membranes and Atraumatic
Respiratory: Decreased Breath Sounds
Cardiac: S1/S2 and Regular Rhythm; No Murmur or Rub
GI: Soft, Non Tender, Non Distended and Normal Bowel Sounds; No Organomegaly
Rectal: Deferred by Provider
Musculoskeletal: No Clubbing, No Cyanosis and Other (Bilateral lower EXTR edema)
Skin: No Rash
Neuro: AO x 3 and Nonfocal/grossly intact
Psych: Calm
Laboratory Results
-
10/21/23 10:36
10/21/23 10:36
Laboratory Results
Lactic Acid 3.7 mmol/L (0.7-2.0) H 07/01/24 10:36
Total Bilirubin 2.4 mg/dl (0.2-1.3) H 10/21/23 10:36
AST 284 U/L (17-59) H 10/21/23 10:36
ALT 172 U/L (0-50) H 10/21/23 10:36
Alkaline Phosphatase 365 U/L (38-126) H 10/21/23 10:36
Troponin I < 0.012 ng/ml 10/21/23 10:36
Data Reviewed
-
Diagnostic Radiology: Report Reviewed by me
Lab Data: Labs Reviewed by me
Impression/Plan
-
# Asthma exacerbation/hxt of Restrictive lung disease
# Sepsis as evident by tach 99.9, lactate 3.7,WBC 11.8 WBC 11.8
-Patient requiring BiPAP
-Decadron 4 Mg IV every 8 hours
-Albuterol as needed for short of breath and wheezing
-Wean BiPAP as tolerated
-Pulmonology consulted
-Trend lactic acid, Tylenol as needed for fever
-covid negative,influenza negative
-blood culture sent from ER
-chest x ray with No acute abnormalities appreciated. Severe elevation of left hemidiaphragm, with associated left basilar subsegmental atelectasis, unchanged compared to prior study. Mild unchanged interstitial scarring, suggestive of senescent
change.
-obtain procal
-doxycycline
#Hyperbilirubinemia/#elevated transaminase associated epigastric discomfort
-Bili 2.4,ast 284,alt 172,alk 365
-continue to trend
-will obtain US of abdomen
#chronic diastolic heart failure
-Echo on admission unrevealing: EF 60-65%. Without pericardial effusion. Compared to the previous echo there is no significant change.
-no acute exacerbation
-Lasix continued
-strict I &O
-daily weight
-ctm
# paroxysmal atrial fibrillation
-stable since cardiac ablation in July
- Diltiazem continued
-Eliquis
-Monitor heart rate
# Hypertension.
-BP stable
-labetalol ocntinued
# Hyperlipidemia
-hold statin, due to elevated LFTs
#iron def anemia
-ferrous sulfate continued
# Coronary artery disease status post PAMELA to mid RCA and OM 06/11/2009.
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
# Scoliosis.
# Gastroesophageal reflux disease.
PPI
DNR
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
[2023-10-21 12:20] LABS: COVID-19 Antigen Negative (Negative)
--- NOTE | 2023-10-21 12:22 | EDRN ---
hospitalist currently at the pts bedside speaking with the pt and the pts
[2023-10-21] MEDS: VIBRAMYCIN 260 MG IV (13:14)
--- NOTE | 2023-10-21 13:44 | W.PN.UPDATE ---
Update Note
Progress Note Update
I saw and examined the patient.
The BEEF LUGGER Niraj's note was reviewed and I agree with the note.
Comment: 78 y/o M CAD, CVA, GERD, Asthma, hypertension, congestive heart failure, polio, A-fib, presenting to ER for SOB. 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 He became ill over weekend with fevers, which slightly improved with Tylenol. Today woke up with
tiredness and later SOB. No other complaints. He was placed on BiPAP in ER and given nebs/steroids for presumed asthma exacerbation.
Physical Exam
General: Well Developed, Well Nourished and No Apparent Distress
HEENT: Normocephalic, Moist mucous membranes and Atraumatic
Respiratory: Decreased Breath Sounds, wheeze, on BiPAP
Cardiac: S1/S2 and Regular Rhythm; No Murmur or Rub
GI: Soft, Non Tender, Non Distended and Normal Bowel Sounds; No Organomegaly
Rectal: Deferred by Provider
Musculoskeletal: No Clubbing, No Cyanosis and Other (Bilateral lower EXTR edema)
Skin: No Rash
Neuro: AO x 3 and Nonfocal/grossly intact
Psych: Calm
Assessment:
Acute hypoxic respiratory failure on BiPAP
- wean as able to RA
Acute SOB, concern for asthma exacerbation
- trigger could be infectious with fever/chills
- CXR: no acute disease. Procal pending. on Doxycycline day 1.
- IV steroids
- Nebs scheduled and prn
- Pulm eval
CAD
Essential hypertension
- continue Labetalol
CVA
- continue HLD
GERD
Chronic HFpEF
Parox A. fib
- continue Eliquis, Diltiazem
- continue Lasix
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
DVT ppx: Eliquis
Code: DNR
--- NOTE | 2023-10-21 14:43 | CON.PUL ---
Consultation
Consultation Request
Date/Time Consultation Requested: 10/21/2023 - 1211
Date/Time Consultation Performed: 10/21/2023 - 1309
Requesting Provider: Dr. Payne
Performing Provider: Dr. Osborn
Reason for Consultation: SOB/Asthma flare
Medical History
-
Chief Complaint: Chills, shortness of breath + chest pain
History of Present Illness:
78-year-old male with a past medical history of CAD, asthma, history of COVID-19, chronic left hemidiaphragm elevation, and history of CVA who presents with shortness of breath, chest pain and chills. 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
While here at work he developed sudden chills, difficulty breathing and chest pain right below his sternum. He told his job what was happening and then was brought to the ER for further evaluation. Patient required BiPAP as he was saturating 88%
on room air, breathing at 27-32 breaths/min, with low-grade fever to 99.9 �F and hypertensive to 161/87. Labs showed leukocytosis to 11.8, elevated LFTs with T. bili 2.4, ALP 365, proBNP 563, procalcitonin 7.34, and COVID antigen negative. Blood
cultures were collected, and CXR showed no acute abnormalities in addition to severe elevation of left diaphragm. Due to the elevated LFTs, abdominal ultrasound was obtained showing a distended gallbladder with cholelithiasis without wall
thickening and suggestive of acute cholecystitis. Initially the patient was thought to have an acute asthmatic exacerbation and was given DuoNebs + Decadron. Given the high WBC with concern for sepsis, NS 0.9% x 1L given, and patient was
transferred to the IMU for further care. Pulmonary service consulted due to his shortness of breath.
When I saw the patient he was already removed off of BiPAP, he was on 3 L/min nasal cannula saturating 98%, heart rate 76, breathing at 15 breaths/min, with BP 140/82. He says that he feels much better now that he is off the BiPAP mask. He denies
any abdominal pain or right upper quadrant pain. Also denies shoulder pain or back pain.
Of note patient follows with us in the office with Dr. Martinez (last visit on 12/2021) but last saw Constance Santos on 12/25/2022. Patient was seen as a preop evaluation for right shoulder arthroscopy. Patient at the time was taken Spiriva for asthma
and was stepped up to Trelegy given wheezing on exam. Patient had completed pulmonary rehab at that time. Last PFTs done in December 2021 showing very severe COPD with an apical bronchodilator response, with concomitant severe restrictive lung
disease (post BD FVC: 45% predicted, T% predicted/2.16 L), with very severe gas exchange capacity defect which is preserved when accounting for alveolar volume involving gas exchange (DLCO: 29%, DLCO/VA: 78% predicted).
PMHx: CAD, A-fib, hypertension, hyperlipidemia, asthma, history of COVID-19, GERD, chronic left hemidiaphragm elevation, history of Moffett's esophagus, history of polio, seasonal allergies, history of colonic polyps, dextrocardia, history of CVA
PSHx: Polypectomy, scoliosis surgery, left inguinal hernia with mesh, coronary stents x 2
Past Medical History
Past Medical History: Other (Above as per HPI)
Past Surgical History: Other (Above as per HPI)
Social History
Tobacco: Non-smoker
Alcohol: None
Drug: None
Personal:
Living: With Family
Family History
Family History: Reviewed & Not Pertinent
Allergies / Home Medications
Allergies
Allergy/AdvReac Type Severity Reaction Status Date / Time
levofloxacin [From Levaquin] Allergy extreme Verified 10/21/23 10:10
pain in
lower legs
and calves
tramadol Allergy Shortness Verified 10/21/23 10:10
of Breath
Home Medications
�Medication �Instructions �Recorded �Confirmed �Last Taken �Type
ascorbic acid (vitamin C) 500 mg 500 mg PO DAILY Supplement 11/06/19 10/21/23 10/21/23 History
tablet (Vitamin C)
calcium carbonate (Oyster Shell 500 mg PO DAILY Gastrointestinal 05/12/21 10/21/23 10/21/23 History
Calcium 500) issue
famotidine 20 mg tablet 20 mg PO BID@1200,2200 05/12/21 10/21/23 10/20/23 History
Gastrointestinal issue
atorvastatin 40 mg tablet 40 mg PO QPM High Cholesterol 09/19/21 10/21/23 10/20/23 History
zinc sulfate 50 mg zinc (220 mg) 220 mg PO .2 TIMES A WEEK 09/28/21 10/21/23 10/19/23 History
capsule Supplement
acetaminophen 650 mg 1,300 mg PO BIDPRN PRN mild pain 12/25/22 10/21/23 10/21/23 History
tablet,extended release
cholecalciferol (vitamin D3) 25 25 mcg PO Q48H@0800 supplement 12/25/22 10/21/23 10/21/23 History
mcg (1,000 unit) tablet (Vitamin
D3)
vitamin A 2,400 mcg capsule 2,400 mcg PO MOWEFR@0800 Supplement 12/25/22 10/21/23 10/21/23 History
fluticasone fur. 100 mcg-umeclid 1 inh inhalation R DAILY 12/27/22 10/21/23 10/21/23 History
62.5 mcg-vilant 25 mcg Lung/Breathing Issues
inhalat.powder (Trelegy Ellipta)
apixaban 5 mg tablet (Eliquis) 5 mg PO BID atrial fibrillation 04/16/23 10/21/23 10/21/23 History
azelastine 137 mcg (0.1 %) nasal 2 spray intranasal BIDPRN PRN 04/16/23 10/21/23 1 Week Ago History
spray allergies ~10/14/23
coQ10 (ubiquinol) 200 mg capsule 200 mg PO DAILY supplement 04/16/23 10/21/23 10/21/23 History
fluticasone propionate 50 2 spray intranasal DAILY PRN 04/16/23 10/21/23 1 Week Ago History
mcg/actuation nasal allergies ~10/14/23
spray,suspension
labetalol 200 mg tablet 200 mg PO BID Blood Pressure 04/16/23 10/21/23 10/21/23 History
therapeutic multivitamin 1 tab PO DAILY Supplement 04/16/23 10/21/23 10/21/23 History
ferrous sulfate 325 mg (65 mg 325 mg PO DAILY Supplement 08/06/23 10/21/23 10/21/23 History
iron) tablet (iron)
furosemide 20 mg tablet (Lasix) 20 mg PO DAILY Fluid 08/11/23 10/21/23 10/21/23 Rx
Retention/Swelling #30 tabs
diltiazem HCl 180 mg 180 mg PO NOON 10/21/23 10/21/23 10/20/23 History
capsule,extended release 24 hr,
controlled (DILT-XR)
Review of Systems
-
History Source: Patient
All other systems: Negative unless noted
Vitals / Labs / Diagnostic Testing
Vital Signs
Temp Pulse Resp BP Pulse Ox
97.5 F 79 20 154/71 97
10/21/23 14:40 10/21/23 14:40 10/21/23 14:40 10/21/23 14:40 10/21/23 14:40
Lab Data
10/21/23 10:36
10/21/23 10:36
Microbiology
10/21/23 11:34 Nasal Swab Influenza Types A & B (CHEMA) - Final
Negative for Influenza A & B, NAAT
Negative results must be combined with clinical observations
and patient history.
Nucleic Acid Amplification test (NAAT)performed on the
[employer] platform.
Diagnostic Testing:
Physical Exam
-
HEENT: Normocephalic and Anicteric
Cardiovascular: S1/S2 and Peripheral Edema (Trace lower extremity edema bilaterally)
Respiratory: Wheeze (Negative), Rales (Negative), Rhonchi (Negative), Non-Labored Respirations and Other (Reduced breath sounds in the left hemithorax)
GI: Soft, Non Distended, Non Tender and Normal Bowel Sounds
Neurology: AO x 3 and Tremors (Negative)
Skin: Warm and Dry
General: Comfortable, Fever (Negative) and Chills (Negative)
Assessment
-
Assessment: 78-year-old male with a past medical history of CAD, asthma, history of COVID-19, chronic left hemidiaphragm elevation, and history of CVA who presents with shortness of breath, chest pain and chills. 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 While here at work he developed sudden chills, difficulty breathing and chest pain right below his sternum. He told his job what was happening and then was brought to the ER for further evaluation. Patient required BiPAP as he was
saturating 88% on room air, breathing at 27-32 breaths/min, with low-grade fever to 99.9 �F and hypertensive to 161/87. Labs showed leukocytosis to 11.8, elevated LFTs with T. bili 2.4, ALP 365, proBNP 563, procalcitonin 7.34, and COVID antigen
negative. Blood cultures were collected, and CXR showed no acute abnormalities in addition to severe elevation of left diaphragm. Due to the elevated LFTs, abdominal ultrasound was obtained showing a distended gallbladder with cholelithiasis
without wall thickening and suggestive of acute cholecystitis. Initially the patient was thought to have an acute asthmatic exacerbation and was given DuoNebs + Decadron. Given the high WBC with concern for sepsis, NS 0.9% x 1L given, and patient
was transferred to the IMU for further care. Pulmonary service consulted due to his shortness of breath.
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
history of CVA
Impression:
#Sepsis without shock likely due to acute cholecystitis
#Lactic acidosis due to above
#Transaminitis due to suspected cholecystitis
#Abnormal abdominal ultrasound with distended gallbladder with cholelithiasis and sludge with minimal pericholecystic fluid without wall thickening and negative Shah sign, equivocal for acute cholecystitis
#Very severe COPD due to unremitting severe persistent asthma on Trelegy 100mcg at home - not in an acute exacerbation
#Severe restrictive lung disease (post-BD FVC: 45% predicted, T%/2.16 L via PFT from 12/2021)
Plan:
- Patient not wheezing on exam and was tachypneic due to lactic acidosis with sepsis
- Check infectious workup with blood cultures, and trend procalcitonin to assure source control
- No need for systemic steroids as patient not in an acute COPD/asthma exacerbation, nor is he hypotensive
- Patient takes Trelegy at home � resume Symbicort + Spiriva with prn nebulized albuterol
- General surgery consulted and patient is awaiting MRCP tomorrow --> defer cholecystectomy to surgery
- Pain control
- Trend LFTs
- Continue ABx with Zosyn
- Maintain SpO2 >88-94% with supplemental O2 as needed
- Incentive spirometer
- Replete electrolytes with K>4, Mg>2
- Maintain euglycemia with goal BG >100 and <180
- prn nebulized bronchodilators
- DVT ppx
Pulmonary service will continue to follow along. Eventual follow-up in the [facility] office with Dr. Martinez.
Total time spent today was 75 minutes for this encounter. Time includes reviewing laboratory test/imaging results, reviewing pertinent medical records, obtaining and reviewing medical history, performing an appropriate exam, ordering medications,
tests and procedures. Time also includes documentation of this encounter, coordinating patient care and communicating with other healthcare professionals. Total time does not include separately billed tests performed on this date of service.
Data:
Abdominal US 10-21-2023:
Distended gallbladder with cholelithiasis and sludge along with minimal pericholecystic fluid. Given the absence of wall thickening and negative sonographic Shah's sign, findings are equivocal for acute cholecystitis. If there is concern for this
clinical entity, a HIDA scan should be considered for definitive evaluation.
CXR 10-21-2023:
1. No acute abnormalities appreciated.
2. Severe elevation of left hemidiaphragm, with associated left basilar subsegmental atelectasis, unchanged compared to prior study.
3. Mild unchanged interstitial scarring, suggestive of senescent change.
[2023-10-21 14:47] LABS: Lactic Acid 0.8 mmol/L (0.7-2.0)
[2023-10-21 15:10] LABS: Procalcitonin 7.34 ng/ml (0.0-0.25)
--- NOTE | 2023-10-21 16:32 | CON.GS ---
Medical History
-
Chief Complaint: Epigastric abdominal pain
History of Present Illness:
Patient is a 78 yo M with a PMH of GERD, HTN, A-fib (on Eliquis, LD 7 AM) s/p ablation, CAD s/p PCI with stent, CHF, CVA, polio c/b chronic LEFT hemidiaphragm paralysis, s/p open LIH repair with mesh. Mr. Nieves presents with epigastric
abdominal pain. 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 His symptoms have improved. He reports a fever on Saturday (10/18) for 6 hours which resolved. He denies
any prior attacks of abdominal pain or bloating. He denies jaundice, pale stools or tea colored urine.
Past Medical History
Past Medical History: Arrhythmias (Afib), Asthma, CAD, CHF, CVA, GERD, HTN and Other (Polio with chronic L diaphragmatic )
Past Surgical History: Cardiac (PCI and stent, cardiac ablation) and Hernia Repair (Open LIH repair with mesh)
Social History
Tobacco: Non-Smoker
Alcohol: None
Drug: None
Family History
Family History: Reviewed & Noncontributory
Allergies / Home Medications
Allergy/AdvReac Type Severity Reaction Status Date / Time
levofloxacin [From Levaquin] Allergy extreme Verified 10/21/23 10:10
pain in
lower legs
and calves
tramadol Allergy Shortness Verified 10/21/23 10:10
of Breath
�Medication �Instructions �Recorded �Confirmed �Type
ascorbic acid (vitamin C) 500 mg 500 mg PO DAILY Supplement 11/06/19 10/21/23 History
tablet (Vitamin C)
calcium carbonate (Oyster Shell 500 mg PO DAILY Gastrointestinal 05/12/21 10/21/23 History
Calcium 500) issue
famotidine 20 mg tablet 20 mg PO BID@1200,2200 05/12/21 10/21/23 History
Gastrointestinal issue
atorvastatin 40 mg tablet 40 mg PO QPM High Cholesterol 09/19/21 10/21/23 History
zinc sulfate 50 mg zinc (220 mg) 220 mg PO .2 TIMES A WEEK 09/28/21 10/21/23 History
capsule Supplement
acetaminophen 650 mg 1,300 mg PO BIDPRN PRN mild pain 12/25/22 10/21/23 History
tablet,extended release
cholecalciferol (vitamin D3) 25 25 mcg PO Q48H@0800 supplement 12/25/22 10/21/23 History
mcg (1,000 unit) tablet (Vitamin
D3)
vitamin A 2,400 mcg capsule 2,400 mcg PO MOWEFR@0800 Supplement 12/25/22 10/21/23 History
fluticasone fur. 100 mcg-umeclid 1 inh inhalation R DAILY 12/27/22 10/21/23 History
62.5 mcg-vilant 25 mcg Lung/Breathing Issues
inhalat.powder (Trelegy Ellipta)
apixaban 5 mg tablet (Eliquis) 5 mg PO BID atrial fibrillation 04/16/23 10/21/23 History
azelastine 137 mcg (0.1 %) nasal 2 spray intranasal BIDPRN PRN 04/16/23 10/21/23 History
spray allergies
coQ10 (ubiquinol) 200 mg capsule 200 mg PO DAILY supplement 04/16/23 10/21/23 History
fluticasone propionate 50 2 spray intranasal DAILY PRN 04/16/23 10/21/23 History
mcg/actuation nasal allergies
spray,suspension
labetalol 200 mg tablet 200 mg PO BID Blood Pressure 04/16/23 10/21/23 History
therapeutic multivitamin 1 tab PO DAILY Supplement 04/16/23 10/21/23 History
ferrous sulfate 325 mg (65 mg 325 mg PO DAILY Supplement 08/06/23 10/21/23 History
iron) tablet (iron)
furosemide 20 mg tablet (Lasix) 20 mg PO DAILY Fluid 08/11/23 10/21/23 Rx
Retention/Swelling #30 tabs
diltiazem HCl 180 mg 180 mg PO NOON Heart 10/21/23 10/21/23 History
capsule,extended release 24 hr, Disease/Condition
controlled (DILT-XR)
Review of Systems
-
A 10 point review of systems was completed, and was negative except as per HPI.
Physical Exam
Vital Signs
Temp Pulse Resp BP Pulse Ox
97.5 F 77 19 150/79 98
10/21/23 14:40 10/21/23 16:29 10/21/23 16:29 10/21/23 15:00 10/21/23 16:29
10/20/23 10/21/23 10/22/23
06:59 06:59 06:59
Actual Weight 60.5 kg
Body Mass Index (BMI) 20.3
Lab Results
10/21/23 10:36
10/21/23 10:36
WBC 11.8 10^3/uL (4.8-10.8) H 10/21/23 10:36
Hgb 13.7 g/dL (13.0-18.0) 10/21/23 10:36
Hct 42.5 % (39.0-52.0) 10/21/23 10:36
Plt Count 158 10^3/uL (130-400) 10/21/23 10:36
Abs Immat Gran (auto) 0.1 10^3/uL (0-0.05) H 10/21/23 10:36
Neutrophils % 92.8 % (42.2-75.2) H 10/21/23 10:36
Physical Exam
General: Well Developed, Well Nourished and No Apparent Distress
HEENT: Normocephalic and Anicteric
Respiratory: Non Labored Respirations
Cardiac: Regular Rhythm
GI: Soft, Non Distended, Tender (Minimal epigastric, negative Shah's sign) and Other (Non-peritoneal)
Musculoskeletal: No Edema
Skin: Warm and Dry
Neuro: Nonfocal/Grossly Intact
Data Reviewed
-
Ultrasound: Image Personally Visualized and interpreted and Report Reviewed by me
Labs: Labs Reviewed by me
Assessment / Plan
-
Patient is a 78 yo M p/w epigastric pain, fevers, chills likely of biliary in origin. Differential includes biliary colic versus choledocholithiasis.
The natural history and pathophysiology of biliary and stone disease was discussed. Anatomy was reviewed utilizing pictorial images. Workup thus far including ultrasound and labs was reviewed. Poor operative candidate at this time given recent
dosage of Eliquis this AM. Given his location of pain, and elevated bilirubin and LFTs plan for to further workup potential choledocholithiasis while waiting washout on his Eliquis. Role of cholecystectomy in preventing future episodes of biliary
colic or choledocholithiasis was discussed. We briefly discussed a MIS cholecystectomy. Timing of cholecystectomy TBD. All questions answered.
-- MRCP
-- OK for clears if no MRI tonight, NPO PM
-- Repeat labs in AM
-- Hold Eliquis
-- Abx: Zosyn
-- Pain control: Tylenol and IV Dilaudid PRN
-- Timing of cholecystectomy TBD
[2023-10-21] MEDS: CARDIZEM CD 180 MG PO (17:42)
[2023-10-21] MEDS: ZOSYN 50 IV ×2 (17:42→23:01)
[2023-10-21 18:02] LABS: Hepatitis C Antibody Negative (Negative)
[2023-10-21] MEDS: SYMBICORT 80/4.5 MCG INHALER 2 PUFF INH (19:54)
[2023-10-21] MEDS: PEPCID 20 MG PO (20:15)
[2023-10-21] MEDS: TRANDATE 200 MG PO (20:15)
--- NOTE | 2023-10-21 22:58 | PTCARENOTE ---
pt blood cultures came back positive- gram negative bacilli- critical result relayed to covering SCRUB TECH, pt is on IV zosyn. care ongoing.
[2023-10-22] VITALS (16 sets, daily range): BP systolic 103–145; BP diastolic 60–89; PULSE 62; O2SAT 62; BMI 21.9
[2023-10-22 04:28] LABS: % Basophils 0.2 % (0-2); % Immature Granulocytes 0.3 % (0-0.5); % Lymphocytes 3.2 % (20.5-51.1); % Monocytes 4.4 % (1.7-9.3); % Neutrophils 91.9 % (42.2-75.2); Absolute Immature Granulocytes 0.1 10^3/uL (0-0.05); Absolute Lymphocytes 0.5 10^3/uL (1.2-3.4); Absolute Monocytes 0.6 10^3/uL (0.1-0.6); Absolute Neutrophils 13.2 10^3/uL (1.4-6.5); Hematocrit 35.1 % (39.0-52.0); Hemoglobin 12.2 g/dL (13.0-18.0); Mean Corp Hgb Conc. 34.8 g/dL (33.0-37.0); Mean Corpuscular Hgb 31.4 pg (27.0-31.0); Mean Corpuscular Volume 90.5 fL (80.0-94.0); Mean Platelet Volume 10.6 fL (7.4-10.4); Nucleated Red Blood Cells % 0 % (-); Platelet Count 141 10^3/uL (130-400); Red Blood Cell Count 3.88 10^6/uL (4.70-6.10); White Blood Cell Count 14.4 10^3/uL (4.8-10.8)
[2023-10-22 04:42] LABS: ALT (SGPT) 301 U/L (0-50); AST (SGOT) 348 U/L (17-59); Albumin 3.2 g/dl (3.5-5.0); Alkaline Phosphatase 332 U/L (38-126); Blood Urea Nitrogen 24 mg/dl (9-20); Carbon Dioxide 27 mmol/L (22-30); Chloride 103 mmol/L (98-107); Direct Bilirubin 1.8 mg/dl (0.0-0.4); Estimated Creatinine Clearance 83 ml/min; Glucose 158 mg/dl (70-99); Potassium 4.2 mmol/L (3.5-5.1); Sodium 137 mmol/L (135-145); Total Bilirubin 2.8 mg/dl (0.2-1.3); Total Protein 5.8 g/dl (6.3-8.2); eGFR > 60.00
[2023-10-22] MEDS: ZOSYN 50 IV ×4 (05:42→23:07)
[2023-10-22] MEDS: SPIRIVA RESPIMAT 2.5 MCG 2 PUFF INH (07:42)
[2023-10-22] MEDS: SYMBICORT 80/4.5 MCG INHALER 2 PUFF INH ×2 (07:42→20:04)
--- NOTE | 2023-10-22 10:53 | PTCARENOTE ---
Patient off unit for MRCP.
--- NOTE | 2023-10-22 11:50 | W.PN.GS2 ---
Addendum entered and electronically signed by Rei Garcia MD 10/22/23 17:02:
Patient seen and examined.
Pain improved. No nausea or vomiting. No fevers.
Gen: NAD
Abd: soft, minimal tenderness, ND, non-peritoneal
Patient is a 78 yo M p/w likely choledocholithiasis
Previous discussions on the natural history and pathophysiology of biliary and stone disease. Role of cholecystectomy was reviewed. Eliquis washout completed today. Plan for MR SALINA to rule out choledocholithiasis especially given elevations in
bilirubin and LFTs. Tentative plan for cholecystectomy with intraoperative cholangiogram either today versus tomorrow pending MRCP findings and availability.
Original Note:
Today's Communication / Plan
-
MRCP Imaging study with possible ERCP per GI Team or possible Laparoscopic Cholecystectomy per General-Surgery Team / Tomorrow - MRCP Imaging Results Dependent.
Subjective Data
-
Date of Service: October 22, 2023
Pt was seen and evaluated at bedside this morning and overnight events were discussed and addressed with the pt nurses, before and during the surgical team rounds were performed.
No acute overnight events.
Vitals stable.
Pt stated he rested well, had no complains this morning.
Denies abdominal pain, SOB or fatigue at this time.
Objective Data
-
Intake and Output
10/21/23 10/22/23 10/23/23
06:59 06:59 06:59
Intake Total 350 / 350
Output Total 750 / 750
Balance -400 / -400
Intake:
Oral fluids 300 / 300
IV piggybacks 50 / 50
Output:
Urine, Voided 750 / 750
Vital Signs
Temp Pulse Resp BP Pulse Ox
98.1 F 61 20 124/71 94
10/22/23 07:10 10/22/23 10:21 10/22/23 10:21 10/22/23 10:21 10/22/23 10:55
Lab Results
10/22/23 04:14
10/22/23 04:14
Calcium 8.0 mg/dl (8.4-10.2) L 10/22/23 04:14
Total Bilirubin 2.8 mg/dl (0.2-1.3) H 10/22/23 04:14
Direct Bilirubin 1.8 mg/dl (0.0-0.4) H 10/22/23 04:14
AST 348 U/L (17-59) H 10/22/23 04:14
ALT 301 U/L (0-50) H 10/22/23 04:14
Alkaline Phosphatase 332 U/L (38-126) H 10/22/23 04:14
Total Protein 5.8 g/dl (6.3-8.2) L 10/22/23 04:14
Albumin 3.2 g/dl (3.5-5.0) L 10/22/23 04:14
Physical Exam
-
VITALS: Stable / Within Normal Limits
GENERAL: AAOx3 / NAD / No Yellowing of the eyes or skin.
ABDOMINAL: Normally appearing Abdomen Soft, Depressible and non-distended, No tenderness upon deep-palpation, guarding, rebound or peritoneal symptoms/signs.
--- NOTE | 2023-10-22 12:14 | W.PN.PUL3 ---
Today's Communication / Plan
-
Antibiotics as per ID
Follow-up sensitivities from BC[facility] from 10/21/2023 which is now growing E. coli
Check surveillance blood cultures today
Maintain SpO2 >88% and continue with Symbicort + Spiriva with as needed albuterol
No need for systemic steroids as patient is not in an acute COPD exacerbation
Patient no longer in respiratory distress, breathing comfortably on room air saturating 97%. No additional pulmonary recommendations at this time. If additional preoperative recommendations are needed then please reach out to on-call pulmonary
physician. Eventual follow-up in the [facility] office with Dr. Martinez. Pulmonary service will now sign off. Thank you for allowing us to be involved in the care of this patient. Please reconsult if there are any additional questions/concerns, or if
patient's respiratory status deteriorates.
Assessment
-
Assessment: 78-year-old male with a past medical history of CAD, asthma, history of COVID-19, chronic left hemidiaphragm elevation, and history of CVA who presents with shortness of breath, chest pain and chills. 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 While here at work he developed sudden chills, difficulty breathing and chest pain right below his sternum. He told his job what was happening and then was brought to the ER for further evaluation. Patient required BiPAP as he was
saturating 88% on room air, breathing at 27-32 breaths/min, with low-grade fever to 99.9 �F and hypertensive to 161/87. Labs showed leukocytosis to 11.8, elevated LFTs with T. bili 2.4, ALP 365, proBNP 563, procalcitonin 7.34, and COVID antigen
negative. Blood cultures were collected, and CXR showed no acute abnormalities in addition to severe elevation of left diaphragm. Due to the elevated LFTs, abdominal ultrasound was obtained showing a distended gallbladder with cholelithiasis
without wall thickening and suggestive of acute cholecystitis. Initially the patient was thought to have an acute asthmatic exacerbation and was given DuoNebs + Decadron. Given the high WBC with concern for sepsis, NS 0.9% x 1L given, and patient
was transferred to the IMU for further care. Pulmonary service consulted due to his shortness of breath.
Chronic conditions [employer]: CAD, A-fib, hypertension, hyperlipidemia, asthma, history of COVID-19, GERD, chronic left hemidiaphragm elevation, history of Moffett's esophagus, history of polio, seasonal allergies, history of colonic polyps, dextrocardia,
history of CVA
Impression:
#Sepsis without shock likely due to choledocholithiasis vs acute calculus cholecystitis
#Lactic acidosis due to above - resolved
#E. coli bacteremia
#Transaminitis due to suspected cholecystitis
#Abnormal abdominal ultrasound with distended gallbladder with cholelithiasis and sludge with minimal pericholecystic fluid without wall thickening and negative Shah sign, equivocal for acute cholecystitis
#Very severe COPD due to unremitting severe persistent asthma on Trelegy 100mcg at home - not in an acute exacerbation
#Severe restrictive lung disease (post-BD FVC: 45% predicted, T%/2.16 L via PFT from 12/2021)
Plan:
- Patient not wheezing on exam and was initially tachypneic due to lactic acidosis with sepsis
-He is no longer tachypneic and is breathing comfortably on room air
- Repeat surveillance blood cultures today, and infectious disease consulted; defer antibiotics to them
-Follow-up sensitivities from blood cultures from 10/21/2023
- Trend procalcitonin to assure source control
- No need for systemic steroids as patient not in an acute COPD/asthma exacerbation, nor is he hypotensive
- Patient takes Trelegy at home � resume Symbicort + Spiriva with prn nebulized albuterol
- Pain control
- Trend LFTs
- Continue ABx with Zosyn
- General surgery consulted -deferred cholecystectomy with intraoperative cholangiogram to surgery
- Of note, patient is at intermediate�high risk for procedure requiring general anesthesia with MAC, although he is optimized from a pulmonary standpoint
- If using GA with MAC, use low tidal volume strategy with goal 4-6cc/kg of IBW, maintaining SpO2 >88% and maintain plateau pressure <30
- Preoperatively would give a dose of Solu-Medrol 40 mg IVP x 1 + nebulized albuterol
- Ensure that patient takes his maintenance inhalers on the morning of procedure
- Early postoperative ambulation as tolerated with DVT prophylaxis
- If additional preoperative recommendations are needed then please reach out to on-call pulmonary physician
- Maintain SpO2 >88-94% with supplemental O2 as needed
- Incentive spirometer encouraged
- Replete electrolytes with K>4, Mg>2
- Maintain euglycemia with goal BG >100 and <180
- DVT ppx: SCDs as Eliquis on hold in prep for expected surgery
Patient no longer in respiratory distress, breathing comfortably on room air saturating 97%. No additional pulmonary recommendations at this time. As stated above, if additional preoperative recommendations are needed then please reach out to
on-call pulmonary physician. Eventual follow-up in the [facility] office with Dr. Martinez.
Pulmonary service will now sign off. Thank you for allowing us to be involved in the care of this patient. Please reconsult if there are any additional questions/concerns, or if patient's respiratory status deteriorates.
Total time spent today was 35 minutes for this encounter. Time includes reviewing laboratory test/imaging results, reviewing pertinent medical records, obtaining and reviewing medical history, performing an appropriate exam, ordering medications,
tests and procedures. Time also includes documentation of this encounter, coordinating patient care and communicating with other healthcare professionals. Total time does not include separately billed tests performed on this date of service.
Data:
MRC 10-22-2023:
Small right pleural effusion.
Moderate to severe elevation of the left hemidiaphragm, similar to recent examinations, and could represent elevated left hemidiaphragm from paralysis, versus chronic changes from diaphragmatic hernia.
Incidental note is made of a small syrinx within the visualized lower thoracic spinal cord.
Scoliosis of the thoracic and lumbar spine. Changes within the spine suggesting the possibility of ankylosing spondylitis, although could also be from previous surgery, and please correlate with history of any previous fusion surgery of the spine.
Distended gallbladder containing gallstones and a fluid fluid level, which is likely sludge. No convincing MR evidence for gallbladder wall thickening or pericholecystic edema.
The common bile duct measures up to 9 mm, slightly dilated, but has tapered appearance as extends inferiorly within the common bile duct. No evidence for bile duct calculus. No evidence for an obstructing mass.
Dilated pancreatic duct and sidebranches within the tail the pancreas, the tail the pancreas extending into the left lower hemithorax. Short segment of loss of visualization of the pancreatic duct with no convincing evidence for an obstructing
pancreatic mass lesion. Evaluation somewhat limited by motion artifact on postcontrast images. 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 If further imaging evaluation is desired, consideration for CT of the lower chest and
abdomen with pancreatic protocol, which may improve the degree of motion artifact.
Abdominal US 10-21-2023:
Distended gallbladder with cholelithiasis and sludge along with minimal pericholecystic fluid. Given the absence of wall thickening and negative sonographic Shah's sign, findings are equivocal for acute cholecystitis. If there is concern for this
clinical entity, a HIDA scan should be considered for definitive evaluation.
CXR 10-21-2023:
1. No acute abnormalities appreciated.
2. Severe elevation of left hemidiaphragm, with associated left basilar subsegmental atelectasis, unchanged compared to prior study.
3. Mild unchanged interstitial scarring, suggestive of senescent change.
Subjective Data
-
Date of Service:
Date of Service: October 22, 2023
Chief Complaint: Pulmonary Follow Up
Subjective:
Patient seen and evaluated today at bedside. Blood cultures collected yesterday are now growing E. coli. This AM he is sitting in chair no acute distress, breathing comfortably on room air saturating 97%. BP 133/70, heart rate 65 and he is
breathing at 19 breaths/min. He feels much better today, denies shortness of breath, chest pain, fevers or chills. He has been afebrile overnight. He currently denies headache, abdominal pain, nausea, vomiting or diarrhea.
Review of Systems
General: Other (Negative unless mentioned above)
Objective Data
Data Reviewed
Vital Signs / I&O / Oxygen:
Vital Signs
Temp Pulse Resp BP Pulse Ox
98.1 F 61 20 124/71 94
10/22/23 07:10 10/22/23 10:21 10/22/23 10:21 10/22/23 10:21 10/22/23 10:55
Intake and Output
10/21/23 10/22/23 10/23/23
06:59 06:59 06:59
Intake Total 350 / 350
Output Total 750 / 750
Balance -400 / -400
SaO2 94
Nasal Cannula flow liters per 2
minute
Physical Exam
General: Respiratory Distress (negative) and Comfortable
HEENT: Normocephalic and Anicteric
Cardiovascular: S1-S2, Regular Rhythm and Peripheral Edema (negative)
Respiratory: Clear, Wheeze (negative), Crackles (negative), Rhonchi (negative) and Non-Labored Respirations
GI: Soft, Non Distended, Tender (Mild at the epigastrium region) and Normal Bowel Sounds
Neurology: Awake and Alert
Skin: Warm and Dry
Labs/Micro/Reports
Lab Data
10/22/23 04:14
10/22/23 04:14
Microbiology
10/21/23 10:36 Blood/Venous Blood Culture - Preliminary
Escherichia coli
10/21/23 10:36 Blood/Venous Gram Stain - Preliminary
10/21/23 10:36 Blood/Venous Blood Culture - Preliminary
Positive culture in progress
10/21/23 10:36 Blood/Venous Gram Stain - Preliminary
10/21/23 11:34 Nasal Swab Influenza Types A & B (CHEMA) - Final
Negative for Influenza A & B, NAAT
Negative results must be combined with clinical observations
and patient history.
Nucleic Acid Amplification test (NAAT)performed on the
[employer] platform.
[2023-10-22] MEDS: FLUSH (NSS) 1 FLUSH IV (12:25)
[2023-10-22] MEDS: CARDIZEM CD 180 MG PO (12:26)
[2023-10-22] MEDS: LASIX 20 MG PO (12:26)
[2023-10-22] MEDS: PEPCID 20 MG PO ×2 (12:26→20:47)
[2023-10-22] MEDS: FEOSOL PO (12:27)
[2023-10-22] MEDS: TRANDATE PO ×2 (12:27→20:38)
--- NOTE | 2023-10-22 14:56 | CON.ID ---
Consultation
-
Date/Time Consultation Requested: 10/22/2023 1109
Date/Time Consultation Performed: 10/22/2023 1430
Requesting Provider: Dr. Lam
Performing Provider: Dr. Weber
Reason for Consultation: Bacteremia
Chief Complaint / Past History
History of Present Illness
Jason Nieves is a 78-year-old man being evaluated at the request of Dr. Lam in regards to bacteremia. History is obtained from chart review, along with patient interview. The patient reports that he was in his usual state of health until
approximately 4 days ago when he developed the acute onset of fever while driving. Once he got home his temperature was taken and found to be approximately 102 degrees. 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 He also had some pain in the xiphoid area. He was taken to the emergency room where workup ensued. He was found to have a leukocytosis, and
blood cultures obtained at that time are now growing E. coli. Infectious Diseases is asked to comment upon further antimicrobial therapy.
He notes no prior symptomatology. He denies any right upper quadrant discomfort. He denies any myalgias or arthralgias. No known sick contacts.
Past History
Additional Past Medical History:
CAD
Hx CVA
GERD
HTN
CHF
Hx postpolio syndrome
A-fib
Asthma
Moffett's esophagus
Additional Past Surgical History:
Polypectomy
PCTA with stenting
Left inguinal hernia repair
Cardiac ablation
Allergy History:
levofloxacin [From Levaquin] Allergy (Verified 10/21/23 10:10)
extreme pain in lower legs and calves (noted on two different occasions)
tramadol Allergy (Verified 10/21/23 10:10)
Shortness of Breath
Medications Reviewed: Yes
Current Antibiotics:
Zosyn
Social History
Tobacco: Non-Smoker
Alcohol: None
Drug: None
Personal:
Living: With Family
Employment: Retired
Family History
Family History: Not Pertinent
Review of Systems
Vital Signs
Temp Pulse Resp BP Pulse Ox
98.1 F 61 20 124/71 94
10/22/23 07:10 10/22/23 10:21 10/22/23 10:21 10/22/23 10:21 10/22/23 10:55
Physical Exam
Physical Exam
Constitutional: No Acute Distress, Well Developed, Comfortable and Non-toxic
Head: Normocephalic
Eyes: Pupils Equal, Pupils Round, No Conjunctival Hemorrhage and Sclera Anicteric
Oral: No Thrush and No Ulcers
Cardiovascular: Regular Rate and S1/S2; Negative S3/S4
Pulmonary: Clear; Negative Wheezes, Rales or Rhonchi
Gastrointestinal: Soft, Non Tender, Non Distended, Normal Bowel Sounds, No Rebound and No Guarding
Genito-Urinary: Negative Ac
Extremities: Negative Edema, Cyanosis, Erythema, Splinter Hemorrhage, Calf Swelling, Venous Insufficiency or Janeway Lesions
Musculoskeletal: Negative Joint Swelling or Joint Effusion
Skin: Warm and Dry; Negative Rash or Jaundice
Wound: None
Neurological: AO x 3
Psychological: Calm
.
Lab / Diagnostic Study Results
10/22/23 04:14
10/22/23 04:14
Abs Immat Gran (auto) 0.1 10^3/uL (0-0.05) H 10/22/23 04:14
Absolute Neuts (auto) 13.2 10^3/uL (1.4-6.5) H 10/22/23 04:14
Absolute Lymphs (auto) 0.5 10^3/uL (1.2-3.4) L 10/22/23 04:14
Absolute Monos (auto) 0.6 10^3/uL (0.1-0.6) 10/22/23 04:14
Absolute Basos (auto) 0.0 10^3/uL (0-0.2) 10/22/23 04:14
Immature Gran % 0.3 % (0-0.5) 10/22/23 04:14
Neutrophils % 91.9 % (42.2-75.2) H 10/22/23 04:14
Lymphocytes % 3.2 % (20.5-51.1) L 10/22/23 04:14
Monocytes % 4.4 % (1.7-9.3) 10/22/23 04:14
Eosinophils % 0.0 % (0-6) 10/22/23 04:14
Basophils % 0.2 % (0-2) 10/22/23 04:14
Lactic Acid 0.8 mmol/L (0.7-2.0) 10/21/23 14:25
Procalcitonin 7.34 ng/ml (0.0-0.25) H* 10/21/23 14:25
Microbiology Results
Micro:
10/21/23 10:36 Blood Culture - Preliminary
Blood/Venous Escherichia coli
Gram Stain - Preliminary
10/21/23 10:36 Blood Culture - Preliminary
Blood/Venous Escherichia coli
Gram Stain - Preliminary
10/21/23 11:34 Influenza Types A & B (CHEMA) - Final
Nasal Swab Negative for Influenza A & B, NAAT
Negative results must be combined with clinical observations
and patient history.
Nucleic Acid Amplification test (NAAT)performed on the
[employer] platform.
Imaging:
10/22/2023 Abdominal MRI: Moderate to severe elevation of left hemidiaphragm noted and is similar to recent examinations. A distended gallbladder containing gallstones and a fluid/fluid level is noted. No convincing MR evidence for gallbladder wall
thickening or pericholecystic edema. The common bile duct measures up to 9 mm and slightly dilated but has tapered appearance as extends inferiorly within the common bile duct. No evidence for bile duct calculus. No evidence for mass. Dilated
pancreatic duct and sidebranches within the tail the pancreas, the tail the pancreas extending into the left lower hemithorax. Short segment of loss of visualization of the pancreatic duct with no convincing evidence for an obstructing pancreatic
mass lesion. Evaluation somewhat limited by motion artifact on postcontrast images. 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 If further imaging evaluation is desired, consideration for CT of the lower chest and abdomen with
pancreatic protocol, which may improve the degree of motion artifact.
10/21/2023 Abdominal ultrasound: Distended gallbladder with cholelithiasis and sludge, with minimal pericholecystic fluid noted. Findings are equivocal for acute cholecystitis given absence of wall thickening and negative sonographic Shah sign.
10/21/2023 CXR (portable): No acute abnormalities appreciated. Severe elevation of the left hemidiaphragm with associated left basilar subsegmental atelectasis is noted and unchanged when compared to prior studies.
Assessment / Plan
E. coli bacteremia; suspected GI source
Leukocytosis
Transaminitis
Elevated procalcitonin
CAD
Hx CVA
GERD
HTN
CHF
Hx postpolio syndrome
A-fib
Asthma
Moffett's esophagus
Recommendations:
Continue with Zosyn for the present.
Repeat blood culture to assess clearance.
Monitor white count and temperature curve.
Further recommendations as additional microbiology data is returned.
Trend LFTs
--- NOTE | 2023-10-22 15:01 | W.PN.HOSP.TC ---
Today's Communication/Plan
-
see outlined plan
Assessment / Plan
Assessment / Plan
Assessment:
Biliary colic, possible early acute cholecystitis
abnormal LFTs
- GS following
- US: Distended gallbladder with cholelithiasis and sludge along with minimal pericholecystic fluid. Given the absence of wall thickening and negative sonographic Shah's sign, findings are equivocal for acute cholecystitis. If there is concern for
this clinical entity, a HIDA scan should be considered for definitive evaluation.
- MRCP: Distended gallbladder containing gallstones and a fluid fluid level, which is likely sludge. No convincing MR evidence for gallbladder wall thickening or pericholecystic edema. The common bile duct measures up to 9 mm, slightly dilated, but
has tapered appearance as extends inferiorly within the common bile duct. No evidence for bile duct calculus. No evidence for an obstructing mass. Dilated pancreatic duct and side-branches within the tail the pancreas, the tail the pancreas
extending into the left lower hemithorax. Short segment of loss of visualization of the pancreatic duct with no convincing evidence for an obstructing pancreatic mass lesion. Evaluation somewhat limited by motion artifact on postcontrast images.
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 If further imaging evaluation is desired, consideration for CT of the lower chest and abdomen with pancreatic protocol, which may improve the degree of motion artifact.
- continue IV Zosyn, day 2
- pain control, anti-emetics
- NPO for possible lap mya today
- follow LFTs
E. Coli bacteremia from acute GB process
- continue IV Zosyn, day 2
- follow repeat cultures
- ID consulted
Acute hypoxic respiratory failure on BiPAP
- wean as able to RA
- in retrospect likely SOB From acute GB issues
Acute SOB, concern for asthma exacerbation
- but no wheezing
- in retrospect likely SOB From acute GB issues
- prn nebs
- follow pulm recs
- no steroids/abx needed
CAD
Essential hypertension
- continue Labetalol
CVA
- continue HLD
GERD
Chronic HFpEF
Parox A. fib
- hold Eliquis
- continue Diltiazem
- continue Lasix
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
DVT ppx: Eliquis
Code: DNR
Anticipated Discharge: > 48 hours
Subjective/Interval History
-
Date of Service: October 22, 2023
no significant pain or fever/chills
NPO for possible OR Today
Objective Data
-
Labs:
Laboratory Results
10/22/23
04:14
WBC 14.4 H
Hgb 12.2 L
Hct 35.1 L
Plt Count 141
Sodium 137
Potassium 4.2
Chloride 103
Carbon Dioxide 27
BUN 24 H
Creatinine 0.6 L
Glucose 158 H
Calcium 8.0 L
Total Bilirubin 2.8 H
AST 348 H
ALT 301 H
Alkaline Phosphatase 332 H
Vital Signs:
Vital Signs
Temp Pulse Resp BP Pulse Ox
98.1 F 61 20 124/71 94
10/22/23 07:10 10/22/23 10:21 10/22/23 10:21 10/22/23 10:21 10/22/23 10:55
I&O
10/21/23 10/22/23 10/23/23
06:59 06:59 06:59
Intake Total 350 / 350
Output Total 750 / 750
Balance -400 / -400
Physical Exam
-
General: No Apparent Distress
HEENT: Normocephalic and Atraumatic
Respiratory: Negative Wheezes
Cardiac: Regular Rhythm and S1/S2
GI: Soft and Nontender
Genito-urinary: No Costovertebral Tender
Musculoskeletal: No Edema
Neuro: AO x 3
Psych: Calm
Data Reviewed
-
Total Time Spent with Patient (in minutes): 42
MRI: Report Reviewed by me, Discussed with Physician and Discussed with Patient
Labs: Labs Reviewed by me and Discussed with Patient
--- NOTE | 2023-10-22 15:26 | CM ---
CM met with pt, spouse and dtr bedside
Pt and spouse reside in a [address] with 3 [address] and full flight to 2nd floor
Pt is independent with his ADLs, denies use of DMEs
No insecurities
PCP- Alessandra Burr
Rx- Johny-On
Plan for OR to gallbladder removal
Will watch for post op needs
Pt interested in senior linux systems engineer for heart health on dc
[facility] senior linux systems engineer list provided
Discharge Disposition- home, no needs
--- NOTE | 2023-10-22 18:45 | PTCARENOTE ---
Patient remained NPO today for possible surgery tomorrow. Patient denies RUQ pain. Tender with palpation. Patient reported one loose stool today.
[2023-10-22 18:54] LABS: Lipase 109 U/L (23-300)
[2023-10-23] VITALS (27 sets, daily range): BP systolic 107–150; BP diastolic 60–91; PULSE 2–88; BMI 20.9; BMI 21.7
[2023-10-23 05:29] LABS: % Basophils 0.1 % (0-2); % Immature Granulocytes 0.4 % (0-0.5); % Lymphocytes 5.1 % (20.5-51.1); % Monocytes 10.5 % (1.7-9.3); % Neutrophils 83.9 % (42.2-75.2); Absolute Immature Granulocytes 0.1 10^3/uL (0-0.05); Absolute Lymphocytes 0.7 10^3/uL (1.2-3.4); Absolute Monocytes 1.4 10^3/uL (0.1-0.6); Absolute Neutrophils 11.2 10^3/uL (1.4-6.5); Hematocrit 34.3 % (39.0-52.0); Hemoglobin 11.7 g/dL (13.0-18.0); Mean Corp Hgb Conc. 34.1 g/dL (33.0-37.0); Mean Corpuscular Hgb 31.4 pg (27.0-31.0); Nucleated Red Blood Cells % 0 % (-); Platelet Count 154 10^3/uL (130-400); Red Blood Cell Count 3.73 10^6/uL (4.70-6.10); Red Cell Dist. Width 14.1 % (11.5-14.5); White Blood Cell Count 13.4 10^3/uL (4.8-10.8)
[2023-10-23] MEDS: ZOSYN 50 IV ×2 (05:41→18:38)
[2023-10-23 05:55] LABS: ALT (SGPT) 217 U/L (0-50); AST (SGOT) 146 U/L (17-59); Albumin 3.2 g/dl (3.5-5.0); Alkaline Phosphatase 277 U/L (38-126); Blood Urea Nitrogen 30 mg/dl (9-20); Calcium 8.3 mg/dl (8.4-10.2); Carbon Dioxide 27 mmol/L (22-30); Chloride 104 mmol/L (98-107); Direct Bilirubin 0.6 mg/dl (0.0-0.4); Estimated Creatinine Clearance 68 ml/min; Glucose 118 mg/dl (70-99); Potassium 3.8 mmol/L (3.5-5.1); Sodium 139 mmol/L (135-145); Total Bilirubin 1.3 mg/dl (0.2-1.3); Total Protein 5.7 g/dl (6.3-8.2); eGFR > 60.00
--- NOTE | 2023-10-23 06:20 | PTCARENOTE ---
Patient up in chair until about 2300. Assisted back to bed. Remained on room air overnight; Sp02 91-95%. Voiding via urinal. RUQ tender to palpate. Otherwise denies any pain. NPO, sips with meds. MRCP done yesterday. Tele showing NSR. Tolerating IV
Abx. Call santana within reach, pt calls appropriately.
[2023-10-23] MEDS: SYMBICORT 80/4.5 MCG INHALER 2 PUFF INH ×2 (07:38→20:53)
[2023-10-23] MEDS: SPIRIVA RESPIMAT 2.5 MCG 2 PUFF INH (07:38)
--- NOTE | 2023-10-23 08:05 | W.PN.ID1 ---
Date of Service
Date of Service: October 23, 2023
Today's Communication
Continue Zosyn.
Assessment / Plan
E. coli bacteremia; suspected GI source
Leukocytosis
Transaminitis
Elevated procalcitonin
CAD
Hx CVA
GERD
HTN
CHF
Hx postpolio syndrome
A-fib
Asthma
Moffett's esophagus
Recommendations:
Continue with Zosyn for the present.
Repeat blood cultures pending, no growth thus far.
Monitor white count and temperature curve.
Further recommendations as additional microbiology data is returned.
Trend LFTs
For possible cholecystectomy later today.
����������������������������������������������������������
Chief Complaint
-: Bacteremia
Subjective / Review of Systems
Patient seen and examined. Reports some mild right upper quadrant discomfort this a.m. No fevers or chills.
Review of Systems: No Fever and No Chills
Vital Signs / Physical Exam
Vital Signs
Vital Signs
Temp Pulse Resp BP Pulse Ox
98.0 F 67 18 140/71 94
10/23/23 03:58 10/23/23 07:48 10/23/23 07:48 10/23/23 06:00 10/23/23 07:48
Physical Exam
Constitutional: No Acute Distress, Comfortable and Non-toxic
Head: Normocephalic
Eyes: No Conjunctival Hemorrhage and Sclera Anicteric
Cardiovascular: S1/S2; Negative S3/S4 or Murmur
Pulmonary: Clear and Non Labored
Gastrointestinal: Soft, Tender (Mild right upper quadrant), Non Distended and Normal Bowel Sounds
Extremities: Negative Edema, Cyanosis or Erythema
Neurological: Awake, Alert and Oriented
Psychological: Calm
Objective Data
Lab Data
Lab Results
10/23/23 05:10
10/23/23 05:10
Estimated Creat Clear 68 ml/min 10/23/23 05:10
Lactic Acid 0.8 mmol/L (0.7-2.0) 10/21/23 14:25
Total Bilirubin 1.3 mg/dl (0.2-1.3) D 10/23/23 05:10
AST 146 U/L (17-59) H 10/23/23 05:10
ALT 217 U/L (0-50) H 10/23/23 05:10
Alkaline Phosphatase 277 U/L (38-126) H 10/23/23 05:10
Most recent labs reviewed.
Micro Results:
10/21/23 10:36 Blood Culture - Preliminary
Blood/Venous Escherichia coli
Gram Stain - Preliminary
10/22/23 18:17 Blood Culture - Pending
Blood/Venous
10/21/23 10:36 Blood Culture - Preliminary
Blood/Venous Escherichia coli
Gram Stain - Preliminary
10/21/23 11:34 Influenza Types A & B (CHEMA) - Final
Nasal Swab Negative for Influenza A & B, NAAT
Negative results must be combined with clinical observations
and patient history.
Nucleic Acid Amplification test (NAAT)performed on the
[employer] platform.
Imaging:
10/22/2023 Abdominal MRI: Moderate to severe elevation of left hemidiaphragm noted and is similar to recent examinations. A distended gallbladder containing gallstones and a fluid/fluid level is noted. No convincing MR evidence for gallbladder wall
thickening or pericholecystic edema. The common bile duct measures up to 9 mm and slightly dilated but has tapered appearance as extends inferiorly within the common bile duct. No evidence for bile duct calculus. No evidence for mass. Dilated
pancreatic duct and sidebranches within the tail the pancreas, the tail the pancreas extending into the left lower hemithorax. Short segment of loss of visualization of the pancreatic duct with no convincing evidence for an obstructing pancreatic
mass lesion. Evaluation somewhat limited by motion artifact on postcontrast images. 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 If further imaging evaluation is desired, consideration for CT of the lower chest and abdomen with
pancreatic protocol, which may improve the degree of motion artifact.
10/21/2023 Abdominal ultrasound: Distended gallbladder with cholelithiasis and sludge, with minimal pericholecystic fluid noted. Findings are equivocal for acute cholecystitis given absence of wall thickening and negative sonographic Shah sign.
10/21/2023 CXR (portable): No acute abnormalities appreciated. Severe elevation of the left hemidiaphragm with associated left basilar subsegmental atelectasis is noted and unchanged when compared to prior studies.
[2023-10-23] MEDS: FEOSOL 325 MG PO (09:03)
[2023-10-23] MEDS: TRANDATE 200 MG PO ×2 (09:03→19:47)
[2023-10-23] MEDS: LASIX PO (09:14)
--- NOTE | 2023-10-23 09:25 | PTCARENOTE ---
Pt for OR. CHG bath completed and linens changed. Report to BUSINESS IMPROVEMENT MANAGER. To OR via bed with volunteers.
--- NOTE | 2023-10-23 09:30 | W.PN.HOSP.TC ---
Today's Communication/Plan
-
lap mya today
follow repeat cultures for clearance
Assessment / Plan
Assessment / Plan
Assessment:
Biliary colic, possible early acute cholecystitis
abnormal LFTs
- US: Distended gallbladder with cholelithiasis and sludge along with minimal pericholecystic fluid. Given the absence of wall thickening and negative sonographic Shah's sign, findings are equivocal for acute cholecystitis. If there is concern for
this clinical entity, a HIDA scan should be considered for definitive evaluation.
- MRCP: Distended gallbladder containing gallstones and a fluid fluid level, which is likely sludge. No convincing MR evidence for gallbladder wall thickening or pericholecystic edema. The common bile duct measures up to 9 mm, slightly dilated, but
has tapered appearance as extends inferiorly within the common bile duct. No evidence for bile duct calculus. No evidence for an obstructing mass. Dilated pancreatic duct and side-branches within the tail the pancreas, the tail the pancreas
extending into the left lower hemithorax. Short segment of loss of visualization of the pancreatic duct with no convincing evidence for an obstructing pancreatic mass lesion. Evaluation somewhat limited by motion artifact on postcontrast images.
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 If further imaging evaluation is desired, consideration for CT of the lower chest and abdomen with pancreatic protocol, which may improve the degree of motion artifact.
- continue IV Zosyn, day 3
- pain control, anti-emetics
- NPO for lap mya today
- follow LFTs
- GS following
E. Coli bacteremia from acute GB process
- continue IV Zosyn, day 3
- follow repeat cultures
- ID following
Acute hypoxic respiratory failure on BiPAP
- wean as able to RA
- in retrospect likely SOB From acute GB issues
Acute SOB, concern for asthma exacerbation
- but no wheezing
- in retrospect likely SOB From acute GB issues
- prn nebs
- follow pulm recs
- no steroids/abx needed
CAD
Essential hypertension
- continue Labetalol
CVA
- continue HLD
GERD
Chronic HFpEF
Parox A. fib
- hold Eliquis
- continue Diltiazem
- continue Lasix
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
DVT ppx: Eliquis
Code: DNR
Anticipated Discharge: 24 - 48 hours
Subjective/Interval History
-
Date of Service: October 23, 2023
mild right upper quadrant pain, no fever/chills
Objective Data
-
Labs:
Laboratory Results
10/23/23
05:10
WBC 13.4 H
Hgb 11.7 L
Hct 34.3 L
Plt Count 154
Sodium 139
Potassium 3.8
Chloride 104
Carbon Dioxide 27
BUN 30 H
Creatinine 0.7
Glucose 118 H
Calcium 8.3 L
Total Bilirubin 1.3 D
AST 146 H
ALT 217 H
Alkaline Phosphatase 277 H
Vital Signs:
Vital Signs
Temp Pulse Resp BP Pulse Ox
98.0 F 68 14 150/75 95
10/23/23 03:58 10/23/23 08:00 10/23/23 08:00 10/23/23 09:03 10/23/23 08:38
I&O
10/22/23 10/23/23 10/24/23
06:59 06:59 06:59
Intake Total 350 / 350 260 / 260
Output Total 750 / 750 1575 / 1575 300 / 300
Balance -400 / -400 -1315 / -1315 -300 / -300
Physical Exam
-
General: No Apparent Distress
HEENT: Normocephalic and Atraumatic
Respiratory: Negative Wheezes
Cardiac: Regular Rhythm and S1/S2
GI: Other (RUQ tenderness)
Genito-urinary: No Costovertebral Tender
Neuro: AO x 3
Psych: Calm
Data Reviewed
-
Total Time Spent with Patient (in minutes): 42
Labs: Labs Reviewed by me
[2023-10-23] MEDS: ZOSYN IV (09:54)
--- NOTE | 2023-10-23 10:53 | OR.RPT ---
Operative Report
Operative Report
Primary Surgeon: Erin
Assisting: Pasquale LERMA
Pre-op Diagnosis: Acute calculous cholecystitis
Post-op Diagnosis: Same
Procedure Performed: Robot assisted laparoscopic cholecystectomy
Anesthesia Type: GETA
Specimen / Cultures: Gallbladder
Estimated Blood Loss: 20cc
Complications: None immediate
Operative Findings: Distended gallbladder with thickened hydropic wall; gallbladder perforated during dissection with drainage of hemorrhagic and purulent contents
Date of Surgery: 10/23/23
Indications: This 78M developed right upper quadrant/epigastric pain and on workup was found to have acute calculous cholecystitis with elevated LFTs and a normal common duct. MRCP did not reveal any choledocholithiasis. Laparoscopic cholecystectomy
was elected.
Description of procedure: The patient was placed on the operating table in the supine position. General anesthesia was induced. A time-out was completed verifying correct patient, procedure, site, positioning, and special equipment prior to
beginning this procedure. An orogastric tube was placed. The abdomen was prepped and draped in the usual sterile fashion. A stab incision was made in left upper quadrant and the Veress needle was inserted. Proper position was confirmed by aspiration
and saline meniscus test. The abdomen was insufflated with carbon dioxide to a pressure of 12 mmHg. The patient tolerated insufflation well.
A 8mm robotic trocar was then inserted at the umbilicus. The laparoscope was inserted and the abdomen inspected. No injuries from initial trocar placement or Veress needle insertion were noted. Additional 8mm trocars were then inserted in the
following locations: 2 in te right upper quadrant and one in the left upper quadrant. The abdomen was inspected and no abnormalities were found. The table was placed in the reverse Trendelenburg position with the right side up. The dome of the
gallbladder was grasped with an atraumatic grasper and retracted over the dome of the liver. The infundibulum was also grasped with an atraumatic grasper and retracted toward the right upper quadrant. This maneuver exposed Calot�s triangle. The
peritoneum overlying the gallbladder infundibulum was then incised and the cystic duct and cystic artery identified and circumferentially dissected so that a clear view of the liver was achieved through a window between the cystic duct an cystic
artery. At this time, the only two structures going into the gallbladder were the cystic artery and cystic duct. ICG was used to verify the location of the CBDand the CBD was thus protected.
The cystic artery was then controlled with bipolar and divided, the cystic duct was then doubly clipped and divided close to the gallbladder. The gallbladder was then dissected from its peritoneal attachments by electrocautery. Hemostasis was
assured and the gallbladder and contained stones were removed using an endoscopic retrieval bag placed through the umbilical port. The gallbladder was passed off the table as a specimen. The gallbladder fossa was copiously irrigated with saline and
hemostasis was again assured. There was no evidence of bleeding from the gallbladder fossa or cystic artery or leakage of the bile from the cystic duct stump. The umbilical trocar site was closed at the fascial level laparoscopically with 2-0 PDS.
Secondary trocars were removed under direct vision and noted to be hemostatic. The laparoscope was withdrawn and the umbilical trocar removed. The abdomen was allowed to collapse. The skin was closed with subcuticular sutures of 4-0 monocryl and
topical skin adhesive. The orogastric tube was removed.
The patient tolerated the procedure well and was taken to the postanesthesia care unit in stable condition.
--- NOTE | 2023-10-23 11:03 | PTOTSP ---
Patient went to OR today s/p lap mya - will require updated PT orders to resume therapy when appropriate. Thank you.
[2023-10-23] MEDS: SUBLIMAZE 25 MCG IV ×3 (11:59→12:22)
--- NOTE | 2023-10-23 12:26 | PN.CDI ---
CDI
- -
CDI:
Physician Documentation Request
Admit Date: 10/21/23 13:12
Dear Doctor Carole,
Please review the following and provide your response in the progress notes.
Clinical Indicators:
Pt admitted with Biliary colic /Acute cholecystitis/Acute Hypoxic respiratory failure
Documented per H&P -Pulmonology consult ,' Sepsis '
Progress notes 10/21&10/22, ' E. Coli bacteremia from acute GB process...'
Pt is on IV Zosyn/Had Lap Saray today
ID consult, ' The patient reports that he was in his usual state of health until approximately 4 days ago when he developed the acute onset of fever while driving. Once he got home his temperature was taken and found to be approximately 102
degrees. ...'
On admit HR 92, RR 33, WBC 11.8( 10/20 1036) went up to 14.4( 10/21 @0414)
Please update the status of Sepsis documented in H&P and Pulmonology consult:
Sepsis-POA now resolved
- Systemic manifestations of infection, with 2 or more SIRS criteria which include:
- Fever >100.4 degrees F or hypothermia < 96.8 degrees F
- Leukocytosis - WBC > 12,000 or leukopenia - WBC < 4,000 or > 10% bands
- Tachycardia > 90 beats per minute
- Tachypnea - RR > 20 breaths per minute or PaCO2 , 32mmHg
Source: Merck Manual 2013
Sepsis Ruled -out
Other (please specify)
Use of terms such as suspected, likely, concern for, or probable (associated with a specific diagnosis that is being evaluated, monitored, or treated as if it exists) are acceptable and can be coded in the inpatient setting, when documented at the
time of discharge.
Thank you,
Addie Rossi RN
CDI Specialist
[place] [facility]
Please use your independent medical judgment in providing your response.
--- NOTE | 2023-10-23 12:50 | PTCARENOTE ---
Pt received from OR. Aox3, in good spirits. Reports feeling improved. 5 surgical sites approximated with surgical adhesive present, open to air. VSS. Clear lunch tray ordered, pt's at bedside.
[2023-10-23] MEDS: ROXICODONE 5 MG PO (13:00)
[2023-10-23] MEDS: PEPCID 20 MG PO ×2 (13:00→19:47)
[2023-10-23] MEDS: CARDIZEM CD 180 MG PO (13:00)
[2023-10-23] MEDS: TYLENOL 650 MG PO ×2 (18:38→23:05)
--- NOTE | 2023-10-23 20:53 | TRANSFER ---
New bed assignment received. Report called to JOSEPH Ervin. Pt updated on transfer. Transferred to room 2124 via the bed. Pt updated his . All belongings sent with pt.
--- NOTE | 2023-10-23 22:58 | PTCARENOTE ---
Patient transferred from IMU via stretcher into room 2124. Patient pulled over from stretcher to bed w/ no event. Patient AAOx3, mildly [place]. VSS as documented. Assessment as documented. Patient oriented to room. Bed in lowest position. Call santana
within reach.
[2023-10-24] MEDS: ZOSYN 50 IV ×5 (00:17→23:22)
[2023-10-24 03:26] VITALS: BP 112/77
[2023-10-24] MEDS: TYLENOL 650 MG PO ×5 (03:29→21:40)
[2023-10-24] MEDS: ROXICODONE 5 MG PO (04:31)
[2023-10-24 06:00] VITALS: BMI 21.7
[2023-10-24 07:20] VITALS: BP 124/64
[2023-10-24 07:46] LABS: % Basophils 0.2 % (0-2); % Eosinophils 0.4 % (0-6); % Immature Granulocytes 0.4 % (0-0.5); % Lymphocytes 2.3 % (20.5-51.1); % Neutrophils 91.7 % (42.2-75.2); Absolute Eosinophils 0.1 10^3/uL (0-0.7); Absolute Immature Granulocytes 0.1 10^3/uL (0-0.05); Absolute Lymphocytes 0.4 10^3/uL (1.2-3.4); Absolute Monocytes 0.9 10^3/uL (0.1-0.6); Hematocrit 38.4 % (39.0-52.0); Hemoglobin 12.9 g/dL (13.0-18.0); Mean Corp Hgb Conc. 33.6 g/dL (33.0-37.0); Mean Corpuscular Hgb 31.9 pg (27.0-31.0); Mean Corpuscular Volume 94.8 fL (80.0-94.0); Mean Platelet Volume 10.5 fL (7.4-10.4); Nucleated Red Blood Cells % 0 % (-); Platelet Count 158 10^3/uL (130-400); Red Blood Cell Count 4.05 10^6/uL (4.70-6.10); Red Cell Dist. Width 13.9 % (11.5-14.5); White Blood Cell Count 18.5 10^3/uL (4.8-10.8)
[2023-10-24 08:11] LABS: ALT (SGPT) 200 U/L (0-50); AST (SGOT) 116 U/L (17-59); Albumin 3.5 g/dl (3.5-5.0); Alkaline Phosphatase 226 U/L (38-126); Blood Urea Nitrogen 24 mg/dl (9-20); Calcium 8.5 mg/dl (8.4-10.2); Carbon Dioxide 34 mmol/L (22-30); Chloride 95 mmol/L (98-107); Direct Bilirubin 0.7 mg/dl (0.0-0.4); Estimated Creatinine Clearance 70 ml/min; Glucose 133 mg/dl (70-99); Potassium 4.2 mmol/L (3.5-5.1); Sodium 135 mmol/L (135-145); Total Bilirubin 1.7 mg/dl (0.2-1.3); Total Protein 6.4 g/dl (6.3-8.2); eGFR > 60.00
[2023-10-24] MEDS: SPIRIVA RESPIMAT 2.5 MCG 2 PUFF INH (08:33)
[2023-10-24] MEDS: SYMBICORT 80/4.5 MCG INHALER 2 PUFF INH ×2 (08:34→20:01)
--- NOTE | 2023-10-24 08:39 | W.PN.HOSP.TC ---
Today's Communication/Plan
-
pain control
diet
IV Abx; follow cultures
hold Eliquis until cleared by GS
Assessment / Plan
Assessment / Plan
Assessment:
Sepsis POA (tachypnea, leukocytosis)
Biliary colic, possible early acute cholecystitis
abnormal LFTs
- US: Distended gallbladder with cholelithiasis and sludge along with minimal pericholecystic fluid. Given the absence of wall thickening and negative sonographic Shah's sign, findings are equivocal for acute cholecystitis. If there is concern for
this clinical entity, a HIDA scan should be considered for definitive evaluation.
- MRCP: Distended gallbladder containing gallstones and a fluid fluid level, which is likely sludge. No convincing MR evidence for gallbladder wall thickening or pericholecystic edema. The common bile duct measures up to 9 mm, slightly dilated, but
has tapered appearance as extends inferiorly within the common bile duct. No evidence for bile duct calculus. No evidence for an obstructing mass. Dilated pancreatic duct and side-branches within the tail the pancreas, the tail the pancreas
extending into the left lower hemithorax. Short segment of loss of visualization of the pancreatic duct with no convincing evidence for an obstructing pancreatic mass lesion. Evaluation somewhat limited by motion artifact on postcontrast images.
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 If further imaging evaluation is desired, consideration for CT of the lower chest and abdomen with pancreatic protocol, which may improve the degree of motion artifact.
- s/p lap mya 10/23/23: operative findings include Distended gallbladder with thickened hydropic wall; gallbladder perforated during dissection with drainage of hemorrhagic and purulent contents
- continue IV Zosyn, day 4
- pain control, anti-emetics
- diet: Low fat
- follow LFTs
- GS following
E. Coli bacteremia from acute GB process
- continue IV Zosyn, day 4
- follow repeat cultures
- ID following
Acute hypoxic respiratory failure on BiPAP
- wean as able to RA
- in retrospect likely SOB From acute GB issues
- add incentive spirometry for post-op hypoxia likely atelectasis
Acute SOB, concern for asthma exacerbation
- but no wheezing
- in retrospect likely SOB From acute GB issues
- prn nebs
- follow pulm recs
- no steroids/abx needed
CAD
Essential hypertension
- continue Labetalol
CVA
- continue HLD
GERD
Chronic HFpEF
Parox A. fib
- hold Eliquis; resume in 48 hours per GS
- continue Diltiazem
- continue Lasix
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
DVT ppx: SCDs
Code: DNR
Anticipated Discharge: 24 - 48 hours
Subjective/Interval History
-
Date of Service: October 24, 2023
reports some incisional pain
tolerating diet
Objective Data
-
Labs:
Laboratory Results
10/24/23
07:14
WBC 18.5 H
Hgb 12.9 L
Hct 38.4 L
Plt Count 158
Sodium 135
Potassium 4.2
Chloride 95 L
Carbon Dioxide 34 H
BUN 24 H
Creatinine 0.7
Glucose 133 H
Calcium 8.5
Total Bilirubin 1.7 H
AST 116 H
ALT 200 H
Alkaline Phosphatase 226 H
Vital Signs:
Vital Signs
Temp Pulse Resp BP Pulse Ox
97.5 F 62 16 124/64 97
10/24/23 07:20 10/24/23 07:20 10/24/23 07:20 10/24/23 07:20 10/24/23 07:20
I&O
0710/24/23 10/25/23
06:59 06:59 06:59
Intake Total 260 / 260 1022 / 1022
Output Total 1575 / 1575 700 / 700
Balance -1315 / -1315 322 / 322
Physical Exam
-
General: No Apparent Distress
HEENT: Normocephalic and Atraumatic
Respiratory: Negative Wheezes
Cardiac: Regular Rhythm and S1/S2
Genito-urinary: No Costovertebral Tender
Neuro: AO x 3
Psych: Calm
Data Reviewed
-
Total Time Spent with Patient (in minutes): 42
Labs: Labs Reviewed by me
[2023-10-24] MEDS: FEOSOL 325 MG PO (08:50)
[2023-10-24] MEDS: TRANDATE PO (08:50)
[2023-10-24] MEDS: LASIX PO (08:56)
--- NOTE | 2023-10-24 08:59 | W.PN.GS2 ---
Today's Communication / Plan
-
`
Assessment / Plan
-
Assessment: 78 y/o male POD#1 s/p RAL cholecystectomy for ACC
ecoli bacteremia d/t ACC
AFVSS
leukocystosis noted - likely reactive from recent surgery and d/t ACC
LFTs stable and slightly elevated
Plan: multimodal pain control options
low fat diet as tolerated
ambulate/OOBTC as tolerated
continue Zosyn given severity of cholecystitis/operative findings and ecoli bacteremia - ID following
therapeutic AC should be held a full 48hrs post op - if H&H stable tomorrow AM then okay to resume eliquis
Subjective Data
-
Date of Service: October 24, 2023
pt seen and examine with resident
post op pain controlled
ate breakfast
no nausea
Objective Data
-
Intake and Output
10/23/23 10/24/23 10/25/23
06:59 06:59 06:59
Intake Total 260 / 260 1022 / 1022
Output Total 1575 / 1575 700 / 700
Balance -1315 / -1315 322 / 322
Intake:
Oral fluids 60 / 60 722 / 722
IV fluids (Total) 200 / 200
Normosol 200 / 200
IV piggybacks 200 / 200 100 / 100
Output:
Urine, Voided 1575 / 1575 700 / 700
Vital Signs
Temp Pulse Resp BP Pulse Ox
97.5 F 62 16 124/64 97
10/24/23 07:20 10/24/23 07:20 10/24/23 07:20 10/24/23 07:20 10/24/23 07:20
Lab Results
10/24/23 07:14
10/24/23 07:14
Calcium 8.5 mg/dl (8.4-10.2) 10/24/23 07:14
Total Bilirubin 1.7 mg/dl (0.2-1.3) H 10/24/23 07:14
Direct Bilirubin 0.7 mg/dl (0.0-0.4) H 10/24/23 07:14
AST 116 U/L (17-59) H 10/24/23 07:14
ALT 200 U/L (0-50) H 10/24/23 07:14
Alkaline Phosphatase 226 U/L (38-126) H 10/24/23 07:14
Total Protein 6.4 g/dl (6.3-8.2) 10/24/23 07:14
Albumin 3.5 g/dl (3.5-5.0) 10/24/23 07:14
Physical Exam
-
NAD AAOx3
sitting comfortably in chair at bedside
ABD: soft, ND, mild TTP at incisions
incisions with glue dressings
[2023-10-24 11:10] VITALS: BP 120/62
--- NOTE | 2023-10-24 11:30 | PTCARENOTE ---
o2 removed. Pox check on RA at 90: Pt states that he felt he could use some o2 back on. O2 reapplied for comfort. Pt sitting in the chair eating 100% of meals. Will cont to monitor.
[2023-10-24] MEDS: PEPCID 20 MG PO ×2 (12:30→21:41)
[2023-10-24] MEDS: CARDIZEM CD 180 MG PO (12:30)
[2023-10-24 15:25] VITALS: BP 124/73
[2023-10-24] MEDS: FLUSH (NSS) 2 FLUSH IV (17:18)
[2023-10-24 19:10] VITALS: BP 126/77
[2023-10-24] MEDS: TRANDATE 200 MG PO (20:00)
[2023-10-24] MEDS: MYLICON 80 MG PO (23:22)
[2023-10-24 23:30] VITALS: BP 134/72
[2023-10-25] VITALS (7 sets, daily range): BP systolic 101–146; BP diastolic 59–76; PULSE 65; O2SAT 90–93; BMI 21.6
[2023-10-25] MEDS: TYLENOL 650 MG PO ×3 (03:11→22:02)
[2023-10-25] MEDS: ZOSYN 50 IV ×4 (05:28→23:21)
[2023-10-25 06:55] LABS: % Basophils 0.1 % (0-2); % Eosinophils 0.4 % (0-6); % Immature Granulocytes 0.6 % (0-0.5); % Neutrophils 90.9 % (42.2-75.2); Absolute Eosinophils 0.1 10^3/uL (0-0.7); Absolute Immature Granulocytes 0.1 10^3/uL (0-0.05); Absolute Lymphocytes 0.6 10^3/uL (1.2-3.4); Absolute Neutrophils 18.3 10^3/uL (1.4-6.5); Hematocrit 35.6 % (39.0-52.0); Hemoglobin 11.9 g/dL (13.0-18.0); Mean Corp Hgb Conc. 33.4 g/dL (33.0-37.0); Mean Corpuscular Hgb 30.9 pg (27.0-31.0); Mean Corpuscular Volume 92.5 fL (80.0-94.0); Mean Platelet Volume 10.6 fL (7.4-10.4); Nucleated Red Blood Cells % 0 % (-); Platelet Count 164 10^3/uL (130-400); Red Blood Cell Count 3.85 10^6/uL (4.70-6.10); Red Cell Dist. Width 13.8 % (11.5-14.5); White Blood Cell Count 20.2 10^3/uL (4.8-10.8)
[2023-10-25 07:23] LABS: ALT (SGPT) 144 U/L (0-50); AST (SGOT) 62 U/L (17-59); Albumin 3.2 g/dl (3.5-5.0); Alkaline Phosphatase 172 U/L (38-126); Blood Urea Nitrogen 34 mg/dl (9-20); Calcium 8.7 mg/dl (8.4-10.2); Carbon Dioxide 28 mmol/L (22-30); Chloride 95 mmol/L (98-107); Direct Bilirubin 0.6 mg/dl (0.0-0.4); Estimated Creatinine Clearance 70 ml/min; Glucose 112 mg/dl (70-99); Potassium 4.1 mmol/L (3.5-5.1); Sodium 132 mmol/L (135-145); Total Bilirubin 1.4 mg/dl (0.2-1.3); Total Protein 5.8 g/dl (6.3-8.2); eGFR > 60.00
--- NOTE | 2023-10-25 07:40 | W.PN.HOSP.TC ---
Today's Communication/Plan
-
Eliquis to resume this PM
Follow CBC, LFT's
Assessment / Plan
Assessment / Plan
Assessment:
Sepsis POA (tachypnea, leukocytosis)
Biliary colic, cholecystitis. POD #2 lap mya
abnormal LFTs
- 10/20 US: Distended gallbladder with cholelithiasis and sludge along with minimal pericholecystic fluid. Given the absence of wall thickening and negative sonographic Shah's sign, findings are equivocal for acute cholecystitis. If there is concern
for this clinical entity, a HIDA scan should be considered for definitive evaluation.
- 10/21 MRCP: Distended gallbladder containing gallstones and a fluid fluid level, which is likely sludge. No convincing MR evidence for gallbladder wall thickening or pericholecystic edema. The common bile duct measures up to 9 mm, slightly dilated,
but has tapered appearance as extends inferiorly within the common bile duct. No evidence for bile duct calculus. No evidence for an obstructing mass. Dilated pancreatic duct and side-branches within the tail the pancreas, the tail the pancreas
extending into the left lower hemithorax. Short segment of loss of visualization of the pancreatic duct with no convincing evidence for an obstructing pancreatic mass lesion. Evaluation somewhat limited by motion artifact on postcontrast images.
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 If further imaging evaluation is desired, consideration for CT of the lower chest and abdomen with pancreatic protocol, which may improve the degree of motion artifact.
- s/p lap mya 10/23/23: operative findings include Distended gallbladder with thickened hydropic wall; gallbladder perforated during dissection with drainage of hemorrhagic and purulent contents
- continue IV Zosyn, day 5
WBC 10/20 11.8-->7/2 14.4-->7/3 13.4-->7/4 18.5-->7/5 20.2
- pain control, anti-emetics
- diet: Low fat
- follow LFTs
Bili 2.4-->1.4
AST 284-->62
- GS following
Will defer to surgery if follow up CT/US imaging of abd is indicated with persistent elevated WBC and if so, optimal timing of further imaging
E. Coli bacteremia from acute GB process
- continue IV Zosyn, day 5
- repeat cultures NGTD
- ID following
Acute hypoxic respiratory failure on BiPAP
- wean as able to RA
- in retrospect likely SOB From acute GB issues
- add incentive spirometry for post-op hypoxia likely atelectasis
Acute SOB, concern for asthma exacerbation
- but no wheezing
- in retrospect likely SOB From acute GB issues with splinting
- prn nebs
- pulm has signed off
- no steroids
encourage I.S., reviewed with pt and nursing
CAD
Essential hypertension
- continue Labetalol
CVA
- continue HLD
GERD
Chronic HFpEF
Parox A. fib
- hold Eliquis; resume in 48 hours post op, as per GS. will order to start this PM
- continue Diltiazem
- continue Lasix
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
DVT ppx: SCDs
Code: DNR
Anticipated Discharge: > 48 hours
Subjective/Interval History
-
Date of Service: October 25, 2023
Awake, alert, conversant. Denies sob. Tolerating diet, still with post op pain
Objective Data
-
Labs:
Laboratory Results
10/25/23 10/25/23
05:47 06:00
WBC 20.2 H
Hgb 11.9 L
Hct 35.6 L
Plt Count 164
Sodium 132 L Cancelled
Potassium 4.1 Cancelled
Chloride 95 L Cancelled
Carbon Dioxide 28 Cancelled
BUN 34 H Cancelled
Creatinine 0.7 Cancelled
Glucose 112 H Cancelled
Calcium 8.7 Cancelled
Total Bilirubin 1.4 H
AST 62 H
ALT 144 H
Alkaline Phosphatase 172 H
Vital Signs:
Vital Signs
Temp Pulse Resp BP Pulse Ox
97.4 F 71 22 137/71 97
10/25/23 03:12 10/25/23 03:12 10/25/23 03:12 10/25/23 03:12 10/25/23 04:58
I&O
10/24/23 10/25/23 10/26/23
06:59 06:59 06:59
Intake Total 1022 / 1022 1760 / 1760
Output Total 700 / 700 650 / 650
Balance 322 / 322 1110 / 1110
Review of Systems
-
History Source: Coordinated Provider (reviewed with nursing)
Constitutional: Denies Fever
EENT: Reports No Symptoms Reported
Respiratory: Denies Trouble Breathing (breathing status pt states is at his baseline level)
Cardiac: Reports No Symptoms; Denies Chest Pain
Abdomen/GI: Reports Abdominal Pain (4 out of 10 level currently, but can be variable) and Constipated (passed some flatus this morning, but no BM since prior to surgery); Denies Nausea or Vomiting
Genitourinary: Reports No Symptoms
Physical Exam
-
General: Well Developed, Well Nourished and No Apparent Distress
HEENT: Normocephalic, Atraumatic and Moist Mucous Membranes
Respiratory: Wheezes (end inspiratory wheeze) and Rales (scattered bibasilar atelectatic rales)
Cardiac: Regular Rhythm and S1/S2; Negative Murmur
GI: Soft, Nontender (to light palpation, mild tenderness RUQ persists) and Nondistended
Musculoskeletal: No Clubbing, No Cyanosis and No Edema
Neuro: Awake, Alert and Oriented
[2023-10-25] MEDS: SPIRIVA RESPIMAT 2.5 MCG 2 PUFF INH (08:16)
[2023-10-25] MEDS: SYMBICORT 80/4.5 MCG INHALER 2 PUFF INH ×2 (08:16→20:47)
[2023-10-25] MEDS: TRANDATE 200 MG PO ×2 (08:34→20:10)
[2023-10-25] MEDS: LASIX 20 MG PO (08:35)
--- NOTE | 2023-10-25 11:13 | W.PN.GS2 ---
Addendum entered and electronically signed by Terry Khan MD 10/25/23 11:26:
I saw and examined the patient.
The [employer] Specialist's note was reviewed and I agree with the note.
Comment: Clinically well, aden diet, pain well controlled, denies n/v. Exam approp. WBC trending up. LFTs trending down. Cont IV abx, trend WBC. If it trends up tomorrow, would consider CT scan.
Original Note:
Today's Communication / Plan
-
Continue ABX
Ok to resume AC tonight
Assessment / Plan
-
Assessment: 78 y/o male POD#2 s/p RAL cholecystectomy for ACC
ecoli bacteremia d/t ACC
AFVSS
leucocytosis noted and trending up- likely reactive from recent surgery and d/t ACC/ecoli bacteremia. Otherwise, clinically improved. Pain improving and afebrile.
LFTs trending down
Plan: multimodal pain control options
low fat diet as tolerated
ambulate/OOBTC as tolerated
continue Zosyn given severity of cholecystitis/operative findings and ecoli bacteremia - ID following
therapeutic AC should be held a full 48hrs post op - Ok to resume eliquis tonight
Subjective Data
-
Date of Service: October 25, 2023
Patient seen and examined at bedside with Dr. Khan. OOB to chair. States he is feeling better today. Tolerating diet without n/v. Pain improving.
Objective Data
-
Intake and Output
10/24/23 10/25/23 10/26/23
06:59 06:59 06:59
Intake Total 1022 / 1022 1760 / 1760
Output Total 700 / 700 650 / 650
Balance 322 / 322 1110 / 1110
Intake:
Oral fluids 722 / 722 1560 / 1560
IV fluids (Total) 200 / 200 100 / 100
Normosol 200 / 200
IV piggybacks 100 / 100 100 / 100
Output:
Urine, Voided 700 / 700 650 / 650
Other:
Number of approximated MODERATE 3
amounts of urine
Vital Signs
Temp Pulse Resp BP Pulse Ox
98.0 F 77 20 121/60 97
10/25/23 08:00 10/25/23 08:35 10/25/23 08:20 10/25/23 08:35 10/25/23 08:20
Lab Results
10/25/23 05:47
10/25/23 06:00
Calcium Cancelled 10/25/23 06:00
Total Bilirubin 1.4 mg/dl (0.2-1.3) H 10/25/23 05:47
Direct Bilirubin 0.6 mg/dl (0.0-0.4) H 10/25/23 05:47
AST 62 U/L (17-59) H 10/25/23 05:47
ALT 144 U/L (0-50) H 10/25/23 05:47
Alkaline Phosphatase 172 U/L (38-126) H 10/25/23 05:47
Total Protein 5.8 g/dl (6.3-8.2) L 10/25/23 05:47
Albumin 3.2 g/dl (3.5-5.0) L 10/25/23 05:47
Physical Exam
-
NAD AAOx3
sitting comfortably in chair at bedside
ABD: soft, ND, mild TTP at incisions
incisions with glue dressings
--- NOTE | 2023-10-25 11:48 | PTOTSP ---
pt currently demonstrates ability to complete simple ADLs, functional transfers, ambulation with supervision to no assistance. issued and educated pt on energy conservation techniques. no acute OT needs identified, will sign off at this time.
[2023-10-25] MEDS: PEPCID 20 MG PO ×2 (13:50→22:02)
[2023-10-25] MEDS: CARDIZEM CD 180 MG PO (13:51)
--- NOTE | 2023-10-25 14:06 | W.PN.ID1 ---
Date of Service
Date of Service: October 25, 2023
Today's Communication
Continue abx.
Assessment / Plan
E. coli bacteremia; suspected GI source
- repeat blood cultures negative to date
Leukocytosis
- trending up
Transaminitis
Elevated procalcitonin
CAD
Hx CVA
GERD
HTN
CHF
Hx postpolio syndrome
A-fib
Asthma
Moffett's esophagus
Recommendations:
Continue with Zosyn for the present.
Repeat blood cultures pending, no growth thus far.
Monitor white count and temperature curve.
For possible re-imaging tomorrow if WBC trends up
Trend LFTs. overall improvement noted.
����������������������������������������������������������
Chief Complaint
-: Bacteremia
Subjective / Review of Systems
Review of Systems: No Fever, No Chills, Abdominal Pain (06/29) and No Diarrhea
Vital Signs / Physical Exam
Vital Signs
Vital Signs
Temp Pulse Resp BP Pulse Ox
97.4 F 64 14 101/59 91
10/25/23 11:15 10/25/23 11:15 10/25/23 11:15 10/25/23 11:15 10/25/23 11:15
Physical Exam
Constitutional: No Acute Distress, Comfortable and Non-toxic
Eyes: No Conjunctival Hemorrhage and Sclera Anicteric
Cardiovascular: Regular Rate and S1/S2; Negative S3/S4
Pulmonary: Clear; Negative Wheezes or Rales
Gastrointestinal: Soft, Tender (mild), Non Distended and Normal Bowel Sounds
Wound: Other (Surgical wounds clean, dry and intact.)
Neurological: Awake and Alert
Psychological: Calm
Objective Data
Lab Data
Lab Results
10/25/23 05:47
10/25/23 06:00
Estimated Creat Clear Cancelled 10/25/23 06:00
Lactic Acid 0.8 mmol/L (0.7-2.0) 10/21/23 14:25
Total Bilirubin 1.4 mg/dl (0.2-1.3) H 10/25/23 05:47
AST 62 U/L (17-59) H 10/25/23 05:47
ALT 144 U/L (0-50) H 10/25/23 05:47
Alkaline Phosphatase 172 U/L (38-126) H 10/25/23 05:47
Most recent labs reviewed.
Micro Results:
10/22/23 18:17 Blood Culture - Preliminary
Blood/Venous No Growth in 48 hours- Final report to follow
10/21/23 10:36 Blood Culture - Final
Blood/Venous Escherichia coli
Gram Stain - Final
10/21/23 10:36 Blood Culture - Final
Blood/Venous Escherichia coli
Gram Stain - Final
10/21/23 11:34 Influenza Types A & B (CHEMA) - Final
Nasal Swab Negative for Influenza A & B, NAAT
Negative results must be combined with clinical observations
and patient history.
Nucleic Acid Amplification test (NAAT)performed on the
[employer] platform.
Imaging:
10/22/2023 Abdominal MRI: Moderate to severe elevation of left hemidiaphragm noted and is similar to recent examinations. A distended gallbladder containing gallstones and a fluid/fluid level is noted. No convincing MR evidence for gallbladder wall
thickening or pericholecystic edema. The common bile duct measures up to 9 mm and slightly dilated but has tapered appearance as extends inferiorly within the common bile duct. No evidence for bile duct calculus. No evidence for mass. Dilated
pancreatic duct and sidebranches within the tail the pancreas, the tail the pancreas extending into the left lower hemithorax. Short segment of loss of visualization of the pancreatic duct with no convincing evidence for an obstructing pancreatic
mass lesion. Evaluation somewhat limited by motion artifact on postcontrast images. 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 If further imaging evaluation is desired, consideration for CT of the lower chest and abdomen with
pancreatic protocol, which may improve the degree of motion artifact.
10/21/2023 Abdominal ultrasound: Distended gallbladder with cholelithiasis and sludge, with minimal pericholecystic fluid noted. Findings are equivocal for acute cholecystitis given absence of wall thickening and negative sonographic Shah sign.
10/21/2023 CXR (portable): No acute abnormalities appreciated. Severe elevation of the left hemidiaphragm with associated left basilar subsegmental atelectasis is noted and unchanged when compared to prior studies.
--- NOTE | 2023-10-25 15:47 | CM ---
POD # 2 mya. IV/AB. Discharge plan of care: Anticipate no needs unless discharged on IV/AB.
[2023-10-25] MEDS: ELIQUIS 5 MG PO (20:10)
[2023-10-26 05:46] VITALS: BMI 21.7
[2023-10-26] MEDS: ZOSYN 50 IV ×3 (06:01→18:25)
[2023-10-26] MEDS: SPIRIVA RESPIMAT 2.5 MCG 2 PUFF INH (07:26)
[2023-10-26] MEDS: SYMBICORT 80/4.5 MCG INHALER 2 PUFF INH ×2 (07:27→17:55)
[2023-10-26 08:30] VITALS: BP 127/66
[2023-10-26] MEDS: ELIQUIS 5 MG PO ×2 (09:17→21:02)
[2023-10-26] MEDS: TRANDATE PO (09:27)
[2023-10-26] MEDS: LASIX PO (09:29)
[2023-10-26] MEDS: TYLENOL 650 MG PO ×3 (09:35→22:29)
--- NOTE | 2023-10-26 09:59 | W.PN.ID1 ---
Addendum entered and electronically signed by Janna Hilton MD 10/26/23 12:56:
improved leukocytosis
cr stable
lfts pending - will follow up again tomorrow
continue zosyn for today
Original Note:
Date of Service
Date of Service: October 26, 2023
Today's Communication
recheck LFTs, cbc
continue zosyn
Assessment / Plan
Cholcystitis
- s/p RAL cholecystectomy 10/22
E. coli bacteremia; suspected GI source
- repeat blood cultures negative to date
Leukocytosis
- trending up
Transaminitis
Elevated procalcitonin
CAD
Hx CVA
GERD
HTN
CHF
Hx postpolio syndrome
A-fib
Asthma
Moffett's esophagus
Recommendations:
Continue with Zosyn for the present.
Repeat blood culture pending, no growth thus far.
Monitor white count and temperature curve.
For possible re-imaging if WBC trends further up
Trend LFTs - ordered.
Follow clinically
����������������������������������������������������������
Chief Complaint
-: Bacteremia and Other (cholecystitis)
Subjective / Review of Systems
remains afebrile
bp stable
cbc pending, bmp pending
10/21 blood culture no growth to date
Vital Signs / Physical Exam
Vital Signs
Vital Signs
Temp Pulse Resp BP Pulse Ox
98.6 F 72 18 127/66 96
10/25/23 23:47 10/26/23 09:27 10/26/23 07:32 10/26/23 09:27 10/26/23 07:32
Physical Exam
Constitutional: No Acute Distress
Cardiovascular: Regular Rate and S1/S2; Negative Murmur or Rub
Pulmonary: Clear and Symmetric; Negative Wheezes or Rales
Gastrointestinal: Soft, Tender (midly tender in the RUQ), Non Distended and Normal Bowel Sounds
Skin: Warm, Dry and Other (surgical sites no erythema, warmth, dehiscence or drainage ); Negative Rash or Jaundice
Objective Data
Lab Data
Estimated Creat Clear Cancelled 10/25/23 06:00
Lactic Acid 0.8 mmol/L (0.7-2.0) 10/21/23 14:25
Total Bilirubin 1.4 mg/dl (0.2-1.3) H 10/25/23 05:47
AST 62 U/L (17-59) H 10/25/23 05:47
ALT 144 U/L (0-50) H 10/25/23 05:47
Alkaline Phosphatase 172 U/L (38-126) H 10/25/23 05:47
Most recent labs reviewed.
Micro Results:
10/22/23 18:17 Blood Culture - Preliminary
Blood/Venous No Growth in 72 hours- Final report to follow
10/21/23 10:36 Blood Culture - Final
Blood/Venous Escherichia coli
Gram Stain - Final
10/21/23 10:36 Blood Culture - Final
Blood/Venous Escherichia coli
Gram Stain - Final
10/21/23 11:34 Influenza Types A & B (CHEMA) - Final
Nasal Swab Negative for Influenza A & B, NAAT
Negative results must be combined with clinical observations
and patient history.
Nucleic Acid Amplification test (NAAT)performed on the
[facility] platform.
Imaging:
10/22/2023 Abdominal MRI: Moderate to severe elevation of left hemidiaphragm noted and is similar to recent examinations. A distended gallbladder containing gallstones and a fluid/fluid level is noted. No convincing MR evidence for gallbladder wall
thickening or pericholecystic edema. The common bile duct measures up to 9 mm and slightly dilated but has tapered appearance as extends inferiorly within the common bile duct. No evidence for bile duct calculus. No evidence for mass. Dilated
pancreatic duct and sidebranches within the tail the pancreas, the tail the pancreas extending into the left lower hemithorax. Short segment of loss of visualization of the pancreatic duct with no convincing evidence for an obstructing pancreatic
mass lesion. Evaluation somewhat limited by motion artifact on postcontrast images. 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 If further imaging evaluation is desired, consideration for CT of the lower chest and abdomen with
pancreatic protocol, which may improve the degree of motion artifact.
10/21/2023 Abdominal ultrasound: Distended gallbladder with cholelithiasis and sludge, with minimal pericholecystic fluid noted. Findings are equivocal for acute cholecystitis given absence of wall thickening and negative sonographic Shah sign.
10/21/2023 CXR (portable): No acute abnormalities appreciated. Severe elevation of the left hemidiaphragm with associated left basilar subsegmental atelectasis is noted and unchanged when compared to prior studies.
--- NOTE | 2023-10-26 10:16 | W.PN.GS2 ---
Addendum entered and electronically signed by Jacoby Sanchez MD 10/26/23 13:37:
Patient seen and examined with STOPE MINER. Overall he appears to be doing well sitting comfortably up in a chair at bedside with his at bedside.
AFVSS
WBCs improving today
Abdomen soft, nondistended, minimal incisional tenderness. No rebound rigidity or guarding. Surgical sites healing nicely.
A/P: Low-fat diet as tolerated, okay for discharge from surgical standpoint, ID managing antibiotics postoperatively.
Outpatient follow-up with Dr. Khan for 2-week postop check
Will follow peripherally and see on an as-needed basis during further hospital care
Original Note:
Today's Communication / Plan
-
Trend labs
Assessment / Plan
-
Assessment: 78 y/o male POD#3 s/p RAL cholecystectomy for ACC
ecoli bacteremia d/t ACC
AFVSS
Await labs today
Eliquis restarted 10/24
Progressing well from surgical standpoint
Plan: multimodal pain control options
low fat diet as tolerated
ambulate/OOBTC as tolerated
continue abx - ID following
Subjective Data
-
Date of Service: October 26, 2023
Patient seen and examined at bedside with Dr. Sanchez. Spouse at bedside, questions addressed. Patient notes he is gradually continuing to feel better with mild residual discomfort to the RUQ. Denies n/v. Tolerating diet. Passing flatus
Objective Data
-
Intake and Output
10/25/23 10/26/23 10/27/23
06:59 06:59 06:59
Intake Total 1760 / 1760 1030 / 1030
Output Total 650 / 650 1400 / 1400
Balance 1110 / 1110 -370 / -370
Intake:
Oral fluids 1560 / 1560 960 / 960
IV fluids (Total) 100 / 100
IV piggybacks 100 / 100 70 / 70
Output:
Urine, Voided 650 / 650 1400 / 1400
Other:
Number of approximated MODERATE 3
amounts of urine
Vital Signs
Temp Pulse Resp BP Pulse Ox
98.6 F 72 18 127/66 96
10/25/23 23:47 10/26/23 09:27 10/26/23 07:32 10/26/23 09:27 10/26/23 07:32
Calcium Cancelled 10/25/23 06:00
Total Bilirubin 1.4 mg/dl (0.2-1.3) H 10/25/23 05:47
Direct Bilirubin 0.6 mg/dl (0.0-0.4) H 10/25/23 05:47
AST 62 U/L (17-59) H 10/25/23 05:47
ALT 144 U/L (0-50) H 10/25/23 05:47
Alkaline Phosphatase 172 U/L (38-126) H 10/25/23 05:47
Total Protein 5.8 g/dl (6.3-8.2) L 10/25/23 05:47
Albumin 3.2 g/dl (3.5-5.0) L 10/25/23 05:47
Physical Exam
-
NAD AAOx3
sitting comfortably in chair at bedside
ABD: soft, ND, mild TTP at incisions
incisions with glue dressings
[2023-10-26 10:18] LABS: % Basophils 0.2 % (0-2); % Eosinophils 0.8 % (0-6); % Immature Granulocytes 0.8 % (0-0.5); % Lymphocytes 4.5 % (20.5-51.1); % Monocytes 4.4 % (1.7-9.3); % Neutrophils 89.3 % (42.2-75.2); Absolute Eosinophils 0.1 10^3/uL (0-0.7); Absolute Immature Granulocytes 0.1 10^3/uL (0-0.05); Absolute Lymphocytes 0.7 10^3/uL (1.2-3.4); Absolute Monocytes 0.7 10^3/uL (0.1-0.6); Absolute Neutrophils 14.1 10^3/uL (1.4-6.5); Hematocrit 37.1 % (39.0-52.0); Hemoglobin 12.5 g/dL (13.0-18.0); Mean Corp Hgb Conc. 33.7 g/dL (33.0-37.0); Mean Corpuscular Hgb 31.3 pg (27.0-31.0); Mean Corpuscular Volume 92.8 fL (80.0-94.0); Mean Platelet Volume 10.7 fL (7.4-10.4); Nucleated Red Blood Cells % 0 % (-); Platelet Count 181 10^3/uL (130-400); Red Cell Dist. Width 13.8 % (11.5-14.5); White Blood Cell Count 15.8 10^3/uL (4.8-10.8)
--- NOTE | 2023-10-26 11:06 | W.PN.HOSP.TC ---
Today's Communication/Plan
-
diet advanced to low fat
follow labs
Assessment / Plan
Assessment / Plan
Assessment:
Sepsis POA (tachypnea, leukocytosis)
Biliary colic, cholecystitis. POD #3 lap mya
abnormal LFTs
- 10/20 US: Distended gallbladder with cholelithiasis and sludge along with minimal pericholecystic fluid. Given the absence of wall thickening and negative sonographic Shah's sign, findings are equivocal for acute cholecystitis. If there is concern
for this clinical entity, a HIDA scan should be considered for definitive evaluation.
- 10/21 MRCP: Distended gallbladder containing gallstones and a fluid fluid level, which is likely sludge. No convincing MR evidence for gallbladder wall thickening or pericholecystic edema. The common bile duct measures up to 9 mm, slightly dilated,
but has tapered appearance as extends inferiorly within the common bile duct. No evidence for bile duct calculus. No evidence for an obstructing mass. Dilated pancreatic duct and side-branches within the tail the pancreas, the tail the pancreas
extending into the left lower hemithorax. Short segment of loss of visualization of the pancreatic duct with no convincing evidence for an obstructing pancreatic mass lesion. Evaluation somewhat limited by motion artifact on postcontrast images.
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 If further imaging evaluation is desired, consideration for CT of the lower chest and abdomen with pancreatic protocol, which may improve the degree of motion artifact.
- s/p lap mya 10/23/23: operative findings include Distended gallbladder with thickened hydropic wall; gallbladder perforated during dissection with drainage of hemorrhagic and purulent contents
- continue IV Zosyn, day 5
WBC 10/20 11.8-->7/2 14.4-->7/3 13.4-->7/4 18.5-->7/5 20.2-->7/6 15.8
- pain control, anti-emetics
- diet: Low fat
- follow LFTs
Bili 2.4-->1.4
AST 284-->62
- GS following
Will defer to surgery if follow up CT/US imaging of abd is indicated with persistent elevated WBC and if so, optimal timing of further imaging, though WBC appears to be improving and holding off on imaging with improvement in WBC will be as per
surgery
E. Coli bacteremia from acute GB process
- continue IV Zosyn, day 6 (started on 10/20)
- repeat cultures NGTD
- ID following
Acute hypoxic respiratory failure on BiPAP
- doing better, weaned to RA with SaO2 92% and not sob
- in retrospect likely SOB From acute GB issues
- add incentive spirometry for post-op hypoxia likely atelectasis
Acute SOB, concern for asthma exacerbation
- but no wheezing
- in retrospect likely SOB From acute GB issues with splinting
- prn nebs
- pulm has signed off
- no steroids
encourage I.S., reviewed with pt and nursing
CAD
Essential hypertension
- continue Labetalol/Diltiazem
CVA
- continue HLD
GERD
Chronic HFpEF
Parox A. fib
- hold Eliquis; resumed in 48 hours post op, as per GS. 7/5 PM dose
- continue Diltiazem
- continue Lasix
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
DVT ppx: SCDs
Code: DNR
Anticipated Discharge: > 48 hours
Subjective/Interval History
-
Date of Service: October 26, 2023
Generally feels better, passing flatus, no BM
Objective Data
-
Labs:
Laboratory Results
10/26/23 10/26/23
08:56 10:02
WBC 15.8 H
Hgb 12.5 L
Hct 37.1 L
Plt Count 181
Sodium Pending
Potassium Pending
Chloride Pending
Carbon Dioxide Pending
BUN Pending
Creatinine Pending
Glucose Pending
Calcium Pending
Total Bilirubin Pending
AST Pending
ALT Pending
Alkaline Phosphatase Pending
Vital Signs:
Vital Signs
Temp Pulse Resp BP Pulse Ox
97.8 F 72 18 127/66 92
10/26/23 08:30 10/26/23 09:27 10/26/23 08:30 10/26/23 09:27 10/26/23 08:30
I&O
10/25/23 10/26/23 10/27/23
06:59 06:59 06:59
Intake Total 1760 / 1760 1030 / 1030
Output Total 650 / 650 1400 / 1400
Balance 1110 / 1110 -370 / -370
Review of Systems
-
History Source: Coordinated Provider (reviewed with nursing)
Constitutional: Denies Fever
EENT: Reports No Symptoms Reported
Respiratory: Denies Trouble Breathing (breathing status pt states is at his baseline level)
Cardiac: Reports No Symptoms; Denies Chest Pain
Abdomen/GI: Reports Abdominal Pain (4 out of 10 level generally, but can be variable, this morning was less intense) and Constipated (passed some flatus this morning, but no BM since prior to surgery); Denies Nausea or Vomiting
Genitourinary: Reports No Symptoms
Physical Exam
-
General: Well Developed, Well Nourished and No Apparent Distress
HEENT: Normocephalic, Atraumatic and Moist Mucous Membranes
Respiratory: Wheezes (end inspiratory wheeze, definitely moving air better, less splinting) and Rales (scattered bibasilar atelectatic rales)
Cardiac: Regular Rhythm and S1/S2; Negative Murmur
GI: Soft, Nontender (to light palpation, mild tenderness RUQ persists) and Nondistended
Musculoskeletal: No Clubbing, No Cyanosis and No Edema
Neuro: Awake, Alert and Oriented
[2023-10-26 11:10] LABS: Blood Urea Nitrogen 23 mg/dl (9-20); Calcium 8.2 mg/dl (8.4-10.2); Carbon Dioxide 31 mmol/L (22-30); Chloride 93 mmol/L (98-107); Estimated Creatinine Clearance 62 ml/min; Glucose 200 mg/dl (70-99); Potassium 3.8 mmol/L (3.5-5.1); Sodium 134 mmol/L (135-145); eGFR > 60.00
[2023-10-26] MEDS: FLUSH (NSS) 2 FLUSH IV ×2 (12:05→18:25)
[2023-10-26] MEDS: PEPCID 20 MG PO ×2 (12:05→21:03)
[2023-10-26] MEDS: CARDIZEM CD 180 MG PO (12:07)
[2023-10-26 14:45] LABS: ALT (SGPT) 97 U/L (0-50); AST (SGOT) 40 U/L (17-59); Albumin 3.2 g/dl (3.5-5.0); Alkaline Phosphatase 140 U/L (38-126); Direct Bilirubin 0.5 mg/dl (0.0-0.4); Total Bilirubin 1.3 mg/dl (0.2-1.3); Total Protein 5.9 g/dl (6.3-8.2)
[2023-10-26 16:03] VITALS: BP 121/61
[2023-10-26] MEDS: TRANDATE 200 MG PO (21:01)
[2023-10-26 23:31] VITALS: BP 157/91
[2023-10-27] MEDS: ZOSYN 50 IV ×5 (01:00→23:43)
[2023-10-27 06:00] VITALS: BMI 21.8
[2023-10-27] MEDS: SPIRIVA RESPIMAT 2.5 MCG 2 PUFF INH (07:23)
[2023-10-27] MEDS: SYMBICORT 80/4.5 MCG INHALER 2 PUFF INH (07:23)
[2023-10-27 07:32] LABS: % Basophils 0.1 % (0-2); % Eosinophils 3.2 % (0-6); % Immature Granulocytes 0.9 % (0-0.5); % Lymphocytes 5.6 % (20.5-51.1); % Monocytes 9.5 % (1.7-9.3); % Neutrophils 80.7 % (42.2-75.2); Absolute Eosinophils 0.4 10^3/uL (0-0.7); Absolute Immature Granulocytes 0.1 10^3/uL (0-0.05); Absolute Lymphocytes 0.8 10^3/uL (1.2-3.4); Absolute Monocytes 1.3 10^3/uL (0.1-0.6); Absolute Neutrophils 11.3 10^3/uL (1.4-6.5); Hemoglobin 11.5 g/dL (13.0-18.0); Mean Corp Hgb Conc. 33.8 g/dL (33.0-37.0); Mean Corpuscular Hgb 31.1 pg (27.0-31.0); Mean Corpuscular Volume 91.9 fL (80.0-94.0); Mean Platelet Volume 10.4 fL (7.4-10.4); Nucleated Red Blood Cells % 0 % (-); Platelet Count 189 10^3/uL (130-400); Red Cell Dist. Width 13.9 % (11.5-14.5)
[2023-10-27 07:45] VITALS: BP 147/77
[2023-10-27 07:45] LABS: ALT (SGPT) 78 U/L (0-50); AST (SGOT) 32 U/L (17-59); Albumin 2.9 g/dl (3.5-5.0); Alkaline Phosphatase 136 U/L (38-126); Blood Urea Nitrogen 18 mg/dl (9-20); Carbon Dioxide 34 mmol/L (22-30); Chloride 95 mmol/L (98-107); Estimated Creatinine Clearance 71 ml/min; Glucose 103 mg/dl (70-99); Potassium 3.8 mmol/L (3.5-5.1); Sodium 135 mmol/L (135-145); Total Bilirubin 1.4 mg/dl (0.2-1.3); Total Protein 5.6 g/dl (6.3-8.2); eGFR > 60.00
[2023-10-27] MEDS: TRANDATE 200 MG PO ×2 (09:33→20:24)
[2023-10-27] MEDS: ELIQUIS 5 MG PO ×2 (09:33→20:23)
[2023-10-27] MEDS: LASIX 20 MG PO (09:43)
--- NOTE | 2023-10-27 10:20 | W.PN.HOSP.TC ---
Today's Communication/Plan
-
recheck CBC
Assessment / Plan
Assessment / Plan
Assessment:
Sepsis POA (tachypnea, leukocytosis)
Biliary colic, cholecystitis. POD #3 lap mya
abnormal LFTs
- 10/20 US: Distended gallbladder with cholelithiasis and sludge along with minimal pericholecystic fluid. Given the absence of wall thickening and negative sonographic Shah's sign, findings are equivocal for acute cholecystitis. If there is concern
for this clinical entity, a HIDA scan should be considered for definitive evaluation.
- 10/21 MRCP: Distended gallbladder containing gallstones and a fluid fluid level, which is likely sludge. No convincing MR evidence for gallbladder wall thickening or pericholecystic edema. The common bile duct measures up to 9 mm, slightly dilated,
but has tapered appearance as extends inferiorly within the common bile duct. No evidence for bile duct calculus. No evidence for an obstructing mass. Dilated pancreatic duct and side-branches within the tail the pancreas, the tail the pancreas
extending into the left lower hemithorax. Short segment of loss of visualization of the pancreatic duct with no convincing evidence for an obstructing pancreatic mass lesion. Evaluation somewhat limited by motion artifact on postcontrast images.
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 If further imaging evaluation is desired, consideration for CT of the lower chest and abdomen with pancreatic protocol, which may improve the degree of motion artifact.
- s/p lap mya 10/23/23: operative findings include Distended gallbladder with thickened hydropic wall; gallbladder perforated during dissection with drainage of hemorrhagic and purulent contents
- continue IV Zosyn, day 5
WBC 10/20 11.8-->7/2 14.4-->7/3 13.4-->7/4 18.5-->7/5 20.2-->7/6 15.8-->7/7 14.0
- pain control, anti-emetics
- diet: Low fat
- follow LFTs
Bili 2.4-->1.4-->1.4
AST 284-->62-->32
- GS following
WBC remains elevated, though is trending down. Discussed with surg and ID, timing of transition to oral abx will be deferred to ID
E. Coli bacteremia from acute GB process
- continue IV Zosyn, (started on 10/20)
- repeat cultures NGTD
- ID following
Acute hypoxic respiratory failure on BiPAP
- doing better, weaned to RA with SaO2 92-93% and not sob
- in retrospect likely SOB From acute GB issues
- add incentive spirometry for post-op hypoxia likely atelectasis
Acute SOB, concern for asthma exacerbation
- but no wheezing
- in retrospect likely SOB From acute GB issues with splinting
- prn nebs
- pulm has signed off
- no steroids
encourage I.S., reviewed with pt and nursing
CAD
Essential hypertension
- continue Labetalol/Diltiazem
CVA
- continue HLD
GERD
Chronic HFpEF
Parox A. fib
-Eliquis; resumed post op, as per GS. 7/5 PM dose
- continue Diltiazem
- continue Lasix
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
DVT ppx: SCDs
Code: DNR
Anticipated Discharge: 24 - 48 hours
Subjective/Interval History
-
Date of Service: October 27, 2023
Passing stool and flatus
Objective Data
-
Labs:
Laboratory Results
10/27/23
06:57
WBC 14.0 H
Hgb 11.5 L
Hct 34.0 L
Plt Count 189
Sodium 135
Potassium 3.8
Chloride 95 L
Carbon Dioxide 34 H
BUN 18
Creatinine 0.7
Glucose 103 H
Calcium 8.0 L
Total Bilirubin 1.4 H
AST 32
ALT 78 H
Alkaline Phosphatase 136 H
Vital Signs:
Vital Signs
Temp Pulse Resp BP Pulse Ox
98.6 F 69 14 147/77 93
10/27/23 07:45 10/27/23 07:45 10/27/23 07:45 10/27/23 07:45 10/27/23 07:45
I&O
10/26/23 10/27/23 10/28/23
06:59 06:59 06:59
Intake Total 1030 / 1030 350 / 350
Output Total 1400 / 1400 1580 / 1580
Balance -370 / -370 -1230 / -1230
Review of Systems
-
History Source: Coordinated Provider (reviewed with nursing)
Constitutional: Denies Fever
EENT: Reports No Symptoms Reported
Respiratory: Denies Trouble Breathing (breathing status pt states is at his baseline level)
Cardiac: Reports No Symptoms; Denies Chest Pain
Abdomen/GI: Reports Abdominal Pain (minimal RUQ) and Constipated (had BM and is passin flatus regularly); Denies Nausea or Vomiting
Genitourinary: Reports No Symptoms
Physical Exam
-
General: Well Developed, Well Nourished and No Apparent Distress
HEENT: Normocephalic, Atraumatic and Moist Mucous Membranes
Respiratory: Wheezes (none noticed this mornin) and Rales (resolved)
Cardiac: Regular Rhythm and S1/S2; Negative Murmur
GI: Soft, Nontender (mild tenderness RUQ persists) and Nondistended
Musculoskeletal: No Clubbing, No Cyanosis and No Edema
Neuro: Awake, Alert and Oriented
[2023-10-27] MEDS: FLUSH (NSS) 2 FLUSH IV ×2 (12:44→17:30)
[2023-10-27] MEDS: TYLENOL 650 MG PO ×3 (12:44→22:16)
[2023-10-27] MEDS: PEPCID 20 MG PO ×2 (12:45→20:24)
[2023-10-27] MEDS: CARDIZEM CD 180 MG PO (12:45)
[2023-10-27 15:30] VITALS: BP 133/74
--- NOTE | 2023-10-27 16:04 | CM ---
Reviewed the chart notes and spoke with the patient at the bedside. IMM signed and placed on the chart.
[2023-10-27] MEDS: SYMBICORT 80/4.5 MCG INHALER INH (20:13)
[2023-10-27] MEDS: COLACE 100 MG PO (22:05)
[2023-10-27 23:33] VITALS: BP 139/71
[2023-10-28 06:00] VITALS: BMI 21.4
[2023-10-28] MEDS: TYLENOL 650 MG PO ×3 (06:19→21:39)
[2023-10-28] MEDS: ZOSYN 50 IV ×2 (06:19→12:13)
[2023-10-28 07:20] VITALS: BP 125/69
[2023-10-28] MEDS: SPIRIVA RESPIMAT 2.5 MCG INH ×2 (08:17→09:13)
[2023-10-28] MEDS: LASIX 20 MG PO (08:17)
[2023-10-28] MEDS: ELIQUIS 5 MG PO ×2 (08:17→20:19)
[2023-10-28] MEDS: SYMBICORT 80/4.5 MCG INHALER INH ×2 (08:17→09:13)
[2023-10-28] MEDS: TRANDATE PO (08:20)
[2023-10-28 08:24] LABS: % Basophils 0.2 % (0-2); % Eosinophils 2.5 % (0-6); % Lymphocytes 4.3 % (20.5-51.1); % Monocytes 9.3 % (1.7-9.3); % Neutrophils 82.7 % (42.2-75.2); Absolute Eosinophils 0.4 10^3/uL (0-0.7); Absolute Immature Granulocytes 0.2 10^3/uL (0-0.05); Absolute Lymphocytes 0.7 10^3/uL (1.2-3.4); Absolute Monocytes 1.6 10^3/uL (0.1-0.6); Absolute Neutrophils 13.9 10^3/uL (1.4-6.5); Hematocrit 33.9 % (39.0-52.0); Hemoglobin 11.7 g/dL (13.0-18.0); Mean Corp Hgb Conc. 34.5 g/dL (33.0-37.0); Mean Corpuscular Hgb 31.2 pg (27.0-31.0); Mean Corpuscular Volume 90.4 fL (80.0-94.0); Mean Platelet Volume 9.9 fL (7.4-10.4); Nucleated Red Blood Cells % 0 % (-); Platelet Count 202 10^3/uL (130-400); Red Blood Cell Count 3.75 10^6/uL (4.70-6.10); Red Cell Dist. Width 13.7 % (11.5-14.5); White Blood Cell Count 16.8 10^3/uL (4.8-10.8)
[2023-10-28 08:54] LABS: ALT (SGPT) 63 U/L (0-50); AST (SGOT) 29 U/L (17-59); Albumin 3.1 g/dl (3.5-5.0); Alkaline Phosphatase 128 U/L (38-126); Blood Urea Nitrogen 17 mg/dl (9-20); Calcium 7.9 mg/dl (8.4-10.2); Carbon Dioxide 34 mmol/L (22-30); Chloride 95 mmol/L (98-107); Estimated Creatinine Clearance 69 ml/min; Glucose 112 mg/dl (70-99); Potassium 3.8 mmol/L (3.5-5.1); Sodium 134 mmol/L (135-145); Total Bilirubin 1.5 mg/dl (0.2-1.3); Total Protein 5.7 g/dl (6.3-8.2); eGFR > 60.00
--- NOTE | 2023-10-28 09:39 | W.PN.GS2 ---
Addendum entered and electronically signed by Joel Soto MD 10/28/23 13:14:
I saw and examined the patient independently.
The Purchasing Clerk's note was reviewed and I agree with the note, assessment and plan except where noted below.
Comment: This 78-year-old male postop day 5 robotic cholecystectomy for acute cholecystitis. Leukocytosis trending up. LFTs improving.
Repeat CT scan today demonstrates a small fluid collection along the right hepatic lobe in the surgical bed. Not clearly an abscess or biloma.
Continue antibiotics per ID.
Low-fat p.o. diet as tolerated.
Multimodal pain control.
Surgery will continue to follow peripherally.
Addendum entered and electronically signed by ITZ Cary 10/28/23 10:17:
correction to below: patient is POD #5 RAL cholecystectomy
Original Note:
Today's Communication / Plan
-
CT abd/pelvis
Assessment / Plan
-
Assessment: 78 y/o male POD#3 s/p RAL cholecystectomy for ACC
ecoli bacteremia d/t ACC
AFVSS
WBC trended down initially, now trending back up
LFT's trended down post op, bilirubin with slight uptrend this am
Eliquis restarted 7/
Tolerating diet with +BM
Plan: multimodal pain control options
low fat diet as tolerated
ambulate/OOBTC as tolerated
continue abx - ID following
given rise in WBC will check CT abd/pelvis with IV contrast to evaluate post operative wound bed
Subjective Data
-
Date of Service: October 28, 2023
Patient seen and examined at bedside. Tolerating diet. Passed a large bm and feels less bloated. Some residual abdominal discomfort.
Objective Data
-
Intake and Output
10/27/23 10/28/23 10/29/23
06:59 06:59 06:59
Intake Total 350 / 350 1260 / 1260
Output Total 1580 / 1580 1000 / 1000
Balance -1230 / -1230 260 / 260
Intake:
Oral fluids 200 / 200 1160 / 1160
IV piggybacks 150 / 150 100 / 100
Output:
Urine, Voided 1580 / 1580 1000 / 1000
Vital Signs
Temp Pulse Resp BP Pulse Ox
99.4 F 74 16 125/69 93
10/28/23 07:20 10/28/23 07:20 10/28/23 07:20 10/28/23 07:20 10/28/23 07:20
Lab Results
10/28/23 08:02
10/28/23 08:02
Calcium 7.9 mg/dl (8.4-10.2) L 10/28/23 08:02
Total Bilirubin 1.5 mg/dl (0.2-1.3) H 10/28/23 08:02
Direct Bilirubin 0.5 mg/dl (0.0-0.4) H 10/26/23 14:17
AST 29 U/L (17-59) 10/28/23 08:02
ALT 63 U/L (0-50) H 10/28/23 08:02
Alkaline Phosphatase 128 U/L (38-126) H 10/28/23 08:02
Total Protein 5.7 g/dl (6.3-8.2) L 10/28/23 08:02
Albumin 3.1 g/dl (3.5-5.0) L 10/28/23 08:02
Physical Exam
-
NAD AAOx3
sitting comfortably in chair at bedside
ABD: soft, ND, NT
incisions with glue dressings. mild ecchymosis to lateral incision, no erythema
--- NOTE | 2023-10-28 10:58 | W.PN.ID1 ---
Date of Service
Date of Service: October 28, 2023
Today's Communication
CT abdomen�no evidence of abscess
Continue Zosyn
Trend WBC
Assessment / Plan
Impression/plan
Cholecystitis
- s/p RAL cholecystectomy 10/22
E. coli bacteremia; suspected GI source
- repeat blood cultures, no growth
Leukocytosis
- trending up, WBC at 16.8 from 14
Transaminitis
Elevated procalcitonin
Conditions prior to admission
CAD
Hx CVA
GERD
HTN
CHF
Hx postpolio syndrome
A-fib
Asthma
Moffett's esophagus
Recommendations:
Continue with Zosyn for the present.
Repeat blood culture , no growth
Monitor white count and temperature curve.
CT abdomen�no evidence of abscess
Transaminitis, LFTs trending down, recheck LFTs
Follow clinically
����������������������������������������������������������
Chief Complaint
-: Bacteremia and Other (cholecystitis, s/p robotic laparoscopic cholecystectomy)
Subjective / Review of Systems
Today is postoperative day 5. Patient reports having lower abdominal pain since yesterday evening. No nausea/vomiting. Normal bowel movement today. Patient does not report having any fever/chills.
Vital Signs / Physical Exam
Vital Signs
Vital Signs
Temp Pulse Resp BP Pulse Ox
99.4 F 74 16 125/69 93
10/28/23 07:20 10/28/23 07:20 10/28/23 07:20 10/28/23 07:20 10/28/23 07:20
Physical Exam
Constitutional: No Acute Distress and Comfortable
Head: Normocephalic
Cardiovascular: Regular Rate and S1/S2
Pulmonary: Clear
Gastrointestinal: Soft, Non Tender, Non Distended, Normal Bowel Sounds and Other (Laparoscopic port site incisions-dry, glued.)
Skin: Warm and Dry
Neurological: Awake, Alert, Oriented and AO x 3
Objective Data
Lab Data
Lab Results
10/28/23 08:02
10/28/23 08:02
Estimated Creat Clear 69 ml/min 10/28/23 08:02
Lactic Acid 0.8 mmol/L (0.7-2.0) 10/21/23 14:25
Total Bilirubin 1.5 mg/dl (0.2-1.3) H 10/28/23 08:02
AST 29 U/L (17-59) 10/28/23 08:02
ALT 63 U/L (0-50) H 10/28/23 08:02
Alkaline Phosphatase 128 U/L (38-126) H 10/28/23 08:02
Most recent labs reviewed.
Micro Results:
10/22/23 18:17 Blood Culture - Final
Blood/Venous No Growth - Final Report
10/21/23 10:36 Blood Culture - Final
Blood/Venous Escherichia coli
Gram Stain - Final
10/21/23 10:36 Blood Culture - Final
Blood/Venous Escherichia coli
Gram Stain - Final
10/21/23 11:34 Influenza Types A & B (CHEMA) - Final
Nasal Swab Negative for Influenza A & B, NAAT
Negative results must be combined with clinical observations
and patient history.
Nucleic Acid Amplification test (NAAT)performed on the
[employer] platform.
Imaging:
10/28/2023 CT abdomen:
1. Status post cholecystectomy. Fluid collection in the postoperative region as described which may reflect biloma or postoperative seroma.
2. Mild enteritis/ileus.
3. Prominent localized subcutaneous emphysema along the right lower abdominal wall, possibly secondary to injection sites.
10/22/2023 Abdominal MRI: Moderate to severe elevation of left hemidiaphragm noted and is similar to recent examinations. A distended gallbladder containing gallstones and a fluid/fluid level is noted. No convincing MR evidence for gallbladder wall
thickening or pericholecystic edema. The common bile duct measures up to 9 mm and slightly dilated but has tapered appearance as extends inferiorly within the common bile duct. No evidence for bile duct calculus. No evidence for mass. Dilated
pancreatic duct and sidebranches within the tail the pancreas, the tail the pancreas extending into the left lower hemithorax. Short segment of loss of visualization of the pancreatic duct with no convincing evidence for an obstructing pancreatic
mass lesion. Evaluation somewhat limited by motion artifact on postcontrast images. 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 If further imaging evaluation is desired, consideration for CT of the lower chest and abdomen with
pancreatic protocol, which may improve the degree of motion artifact.
10/21/2023 Abdominal ultrasound: Distended gallbladder with cholelithiasis and sludge, with minimal pericholecystic fluid noted. Findings are equivocal for acute cholecystitis given absence of wall thickening and negative sonographic Shah sign.
10/21/2023 CXR (portable): No acute abnormalities appreciated. Severe elevation of the left hemidiaphragm with associated left basilar subsegmental atelectasis is noted and unchanged when compared to prior studies.
--- NOTE | 2023-10-28 11:23 | W.PN.HOSP.TC ---
Addendum entered and electronically signed by Rex Irvin MD 10/29/23 10:43:
Hyponatremia, mild
Original Note:
Today's Communication/Plan
-
.
Assessment / Plan
Assessment / Plan
Assessment:
# Sepsis POA (tachypnea, leukocytosis), lactic acidosis
Biliary colic, acute calculus cholecystitis. E. coli bacteremia
abnormal LFTs
s/p Robot assisted laparoscopic cholecystectomy on 10/22
Tolerating diet
WBC is elevated with no fevers, agree with CT study but hard to decider in immediate post op period.
Appreciate ID & surgery input
#Acute hypoxic respiratory failure on BiPAP
- doing better, weaned to RA with SaO2 92-93% and not sob
- in retrospect likely SOB From acute GB issues
- added incentive spirometry for post-op hypoxia likely atelectasis
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
- No wheezing
- in retrospect likely SOB From acute GB issues with splinting
- prn nebs
- pulm has signed off
- no steroids
encourage I.S., reviewed with pt and nursing
CAD
No chest pain
# Essential hypertension
- continue Labetalol/Diltiazem
CVA
- continue HLD
GERD
Chronic HFpEF
Parox A. fib
-Eliquis; resumed post op, as per GS. 7/5 PM dose
- continue Diltiazem
- continue Lasix
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
DVT ppx: SCDs
Code: DNR
Total time spent to see the patient, examine the patient, review data and lab results, and discuss the treatment plan with patient, nurse around 55 minutes
Anticipated Discharge: 24 - 48 hours
Subjective/Interval History
-
Date of Service: October 28, 2023
He denies abd pain
No fevers
Objective Data
-
Labs:
Laboratory Results
10/28/23
08:02
WBC 16.8 H
Hgb 11.7 L
Hct 33.9 L
Plt Count 202
Sodium 134 L
Potassium 3.8
Chloride 95 L
Carbon Dioxide 34 H
BUN 17
Creatinine 0.7
Glucose 112 H
Calcium 7.9 L
Total Bilirubin 1.5 H
AST 29
ALT 63 H
Alkaline Phosphatase 128 H
Vital Signs:
Vital Signs
Temp Pulse Resp BP Pulse Ox
99.4 F 74 16 125/69 93
10/28/23 07:20 10/28/23 07:20 10/28/23 07:20 10/28/23 07:20 10/28/23 07:20
I&O
10/27/23 10/28/23 10/29/23
06:59 06:59 06:59
Intake Total 350 / 350 1260 / 1260
Output Total 1580 / 1580 1000 / 1000
Balance -1230 / -1230 260 / 260
[2023-10-28 12:12] VITALS: BP 143/77
[2023-10-28] MEDS: PEPCID 20 MG PO ×2 (12:13→21:39)
[2023-10-28] MEDS: CARDIZEM CD 180 MG PO (12:13)
[2023-10-28 15:10] VITALS: BP 131/69; PULSE 80
[2023-10-28 15:25] VITALS: BP 133/68
--- NOTE | 2023-10-28 15:39 | CM ---
AB transitioned to PO, following CBC. Discharge Plan of Care: Therapy recommended home PT. Patient and declined but would like VN with . Referral sent.
[2023-10-28] MEDS: KEFLEX 500 MG PO ×2 (17:36→21:39)
[2023-10-28] MEDS: SYMBICORT 80/4.5 MCG INHALER 2 PUFF INH (18:25)
[2023-10-28] MEDS: TRANDATE 200 MG PO (20:19)
[2023-10-28 23:05] VITALS: BP 133/75
[2023-10-29 05:09] VITALS: BMI 21.4
[2023-10-29] MEDS: TYLENOL 650 MG PO (06:32)
[2023-10-29 07:20] VITALS: BP 136/67
[2023-10-29] MEDS: SYMBICORT 80/4.5 MCG INHALER 2 PUFF INH (08:07)
[2023-10-29] MEDS: SPIRIVA RESPIMAT 2.5 MCG 2 PUFF INH (08:08)
--- NOTE | 2023-10-29 08:16 | W.PN.GS2 ---
Addendum entered and electronically signed by Rei Garcia MD 10/29/23 12:15:
No complaints. Denies abdominal pain. No nausea or vomiting. No fevers or chills.
Gen: NAD
Abd: soft, NT/ND, non-peritoneal, incisions c/d/i - no erythema, ecchymosis or drainage
Patient is a 78 y/o male POD#7 s/p RAL cholecystectomy for ACC
Ecoli bacteremia d/t ACC
AFVSS
Repeat labs notable for normal bilirubin and LFTs, uptrending WBC.
Repeat CT scan obtained yesterday demonstrates small volume fluid collection with thickened wall in the hepatic fossa, too small and difficult location to the access via IR.
Eliquis restarted 10/24
Tolerating diet with +BM
Plan:
multimodal pain control options
low fat diet as tolerated
ambulate/OOBTC as tolerated
continue abx - ID following, will need outpatient treatment
discussion with operative surgeon, OK with DC on PO antibiotics and outpatient labs
Original Note:
Today's Communication / Plan
-
F/U AM CBC & LABS REPORT
Closely Monitor WBC Trend
F/U Post-Operative ABD Fluid Collection in correlation to Pt clinical status/progression.
Plan: multimodal pain control options
low fat diet as tolerated
ambulate/OOBTC as tolerated
continue abx - ID following
given rise in WBC will check CT abd/pelvis with IV contrast to evaluate post operative wound bed
Assessment / Plan
-
Assessment: 78 y/o male POD#7 s/p RAL cholecystectomy for ACC
ecoli bacteremia d/t ACC
AFVSS
WBC trended down initially, now trending back up
LFT's trended down post op, bilirubin with slight uptrend this am
Eliquis restarted 10/24
Tolerating diet with +BM
Plan: multimodal pain control options
low fat diet as tolerated
ambulate/OOBTC as tolerated
continue abx - ID following
given rise in WBC will check CT abd/pelvis with IV contrast to evaluate post operative wound bed
Subjective Data
-
Date of Service: October 29, 2023
Pt was seen and evaluated this morning with attending physician.
No acute O/N.
Reports feeling well at this time and tolerating diet.
Denies any Abdominal pain, N/V, Fevers or chills.
Objective Data
-
Intake and Output
10/28/23 10/29/23 10/30/23
06:59 06:59 06:59
Intake Total 1260 / 1260 480 / 480
Output Total 1000 / 1000 1300 / 1300
Balance 260 / 260 -820 / -820
Intake:
Oral fluids 1160 / 1160 480 / 480
IV piggybacks 100 / 100
Output:
Urine, Voided 1000 / 1000 1300 / 1300
Other:
Number of approximated MODERATE 2
amounts of urine
Vital Signs
Temp Pulse Resp BP Pulse Ox
98.5 F 74 18 136/67 94
10/29/23 07:20 10/29/23 07:20 10/29/23 07:20 10/29/23 07:20 10/29/23 07:20
Calcium 7.9 mg/dl (8.4-10.2) L 10/28/23 08:02
Total Bilirubin 1.5 mg/dl (0.2-1.3) H 10/28/23 08:02
Direct Bilirubin 0.5 mg/dl (0.0-0.4) H 10/26/23 14:17
AST 29 U/L (17-59) 10/28/23 08:02
ALT 63 U/L (0-50) H 10/28/23 08:02
Alkaline Phosphatase 128 U/L (38-126) H 10/28/23 08:02
Total Protein 5.7 g/dl (6.3-8.2) L 10/28/23 08:02
Albumin 3.1 g/dl (3.5-5.0) L 10/28/23 08:02
Physical Exam
-
Vitals stable.
AAOx3
In NAD/Sitting on chair having breakfast.
ABDOMINAL: Surgical Scar Sites Clean, No erythema nor Discharge.
Abdomen Soft, Non-Distended.
NO-Tenderness to Palpation.
NO Rebound, Rigidity or Guarding.
[2023-10-29] MEDS: LASIX 20 MG PO (08:18)
[2023-10-29] MEDS: TRANDATE PO (08:19)
[2023-10-29] MEDS: KEFLEX 500 MG PO ×2 (08:19→12:17)
[2023-10-29] MEDS: ELIQUIS PO ×2 (08:19→08:35)
[2023-10-29 09:09] LABS: Hematocrit 34.7 % (39.0-52.0); Mean Corp Hgb Conc. 34.6 g/dL (33.0-37.0); Mean Corpuscular Hgb 31.4 pg (27.0-31.0); Mean Corpuscular Volume 90.8 fL (80.0-94.0); Mean Platelet Volume 9.9 fL (7.4-10.4); Platelet Count 226 10^3/uL (130-400); Red Blood Cell Count 3.82 10^6/uL (4.70-6.10); Red Cell Dist. Width 13.8 % (11.5-14.5); White Blood Cell Count 17.1 10^3/uL (4.8-10.8)
[2023-10-29 09:39] LABS: ALT (SGPT) 47 U/L (0-50); AST (SGOT) 28 U/L (17-59); Albumin 3.1 g/dl (3.5-5.0); Alkaline Phosphatase 119 U/L (38-126); Blood Urea Nitrogen 15 mg/dl (9-20); Carbon Dioxide 31 mmol/L (22-30); Chloride 95 mmol/L (98-107); Estimated Creatinine Clearance 81 ml/min; Glucose 204 mg/dl (70-99); Potassium 3.8 mmol/L (3.5-5.1); Sodium 132 mmol/L (135-145); Total Bilirubin 1.2 mg/dl (0.2-1.3); Total Protein 5.7 g/dl (6.3-8.2); eGFR > 60.00
--- NOTE | 2023-10-29 09:58 | PN.CDI ---
CDI
- -
CDI:
Physician Documentation Request
Admit Date: 10/21/23 13:12
Dear Doctor Brandee,
Please review the following and provide your response in the progress notes.
Clinical Indicators:
Pt admitted with Sepsis Biliary colic, acute calculus cholecystitis. E. coli bacteremia s/p Lap Cholecystectomy 10/22.
Sodium labs are as below/Pt did get IVFs
10/25/23 10/26/23 10/28/23
05:47 08:56 08:02
Sodium 132 L 134 L 134 L
10/29/23
08:38
Sodium 132 L
Based on the above, could you clarify in the progress notes, the appropriate diagnosis, if significant, that supports the above abnormalities and additional evaluation, monitoring and/or treatment rendered:
Hyponatremia
Abnormal lab value
Other
Use of terms such as suspected, likely, concern for, or probable (associated with a specific diagnosis that is being evaluated, monitored, or treated as if it exists) are acceptable and can be coded in the inpatient setting, when documented at the
time of discharge.
Thank you,
Addie Rossi RN
CDI Specialist
[place] Text
Please use your independent medical judgment in providing your response.
--- NOTE | 2023-10-29 10:34 | W.PN.HOSP.TC ---
Today's Communication/Plan
-
Await further planning per surgery
CT was done yesterday
will reach out to surgery , pt wants to go home
Assessment / Plan
Assessment / Plan
Assessment:
# Sepsis POA (tachypnea, leukocytosis), lactic acidosis
Biliary colic, acute calculus cholecystitis. E. coli bacteremia
abnormal LFTs
s/p Robot assisted laparoscopic cholecystectomy on 10/22
Tolerating diet
WBC is elevated with no fevers, agree with CT study but hard to decider in immediate post op period.
Appreciate ID & surgery input
#Acute hypoxic respiratory failure on BiPAP
- doing better, weaned to RA with SaO2 92-93% and not sob
- in retrospect likely SOB From acute GB issues
- added incentive spirometry for post-op hypoxia likely atelectasis
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
- No wheezing
- in retrospect likely SOB From acute GB issues with splinting
- prn nebs
- pulm has signed off
- no steroids
encourage I.S., reviewed with pt and nursing
CAD
No chest pain
# Essential hypertension
- continue Labetalol/Diltiazem
CVA
- continue HLD
GERD
Chronic HFpEF
Parox A. fib
-Eliquis; resumed post op, as per GS. 7/5 PM dose
- continue Diltiazem
- continue Lasix
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
DVT ppx: SCDs
Code: DNR
Total discharge time spent to see the patient, examine the patient, review data and lab results, and discuss the discharge plan with patient, surgery nurse around 65 minutes
Anticipated Discharge: Today
Subjective/Interval History
-
Date of Service: October 29, 2023
He denies chest pain or fevers
mild abd discomfort
Objective Data
-
Labs:
Laboratory Results
10/29/23
08:38
WBC 17.1 H
Hgb 12.0 L
Hct 34.7 L
Plt Count 226
Sodium 132 L
Potassium 3.8
Chloride 95 L
Carbon Dioxide 31 H
BUN 15
Creatinine 0.6 L
Glucose 204 H
Calcium 8.0 L
Total Bilirubin 1.2
AST 28
ALT 47
Alkaline Phosphatase 119
Vital Signs:
Vital Signs
Temp Pulse Resp BP Pulse Ox
98.5 F 74 18 136/67 94
10/29/23 07:20 10/29/23 08:19 10/29/23 07:20 10/29/23 08:19 10/29/23 07:20
I&O
10/28/23 10/29/23 10/30/23
06:59 06:59 06:59
Intake Total 1260 / 1260 480 / 480
Output Total 1000 / 1000 1300 / 1300
Balance 260 / 260 -820 / -820
--- NOTE | 2023-10-29 12:10 | W.DCSUMMARY ---
Discharge Summary
Discharge Data
Date of Admission: 10/21/23
Date of Discharge: 10/29/23
-
Pending Results: No
Hospital Course
78 years old male presented with fever. He had epigastric abdominal pain. He was found to have leukocytosis. He had abnormal liver function test. Ultrasound showed distended gallbladder with cholelithiasis. Patient had magnetic resonance
imaging study that showed distended gallbladder with gallstones. Patient had acute hypoxic respiratory failure and required BiPAP therapy. Patient was seen by pulmonary doctor. Patient met criteria of sepsis with tachypnea, hypoxia, leukocytosis
and lactic acidosis. He was found to have acute calculus cholecystitis and underwent robotic assisted laparoscopic cholecystectomy by Dr. Khan on October 22. Blood culture came back positive for E. coli. Patient was seen by infectious diseases
doctor. He was received intravenous antibiotic. Repeat blood culture did not show any growth. Patient improved significantly. Hypoxia resolved. Patient improved significantly. He tolerated diet. Patient had leukocytosis and was advised to
repeat the blood work in outpatient setting. Patient remained hemodynamically stable and was discharged in a stable condition.
Discharge Plan
-
Patient Disposition: Home with Home Care
Discharge Diagnosis/Procedures: Biliary colic, acute calculus cholecystitis. Escherichia coli bacteremia Robot assisted laparoscopic cholecystectomy by Dr. Khan on 10/23/23.
You will need to do blood work and sent it to your family doctor and the surgeon in 2-3 days.
Diet: As tolerated
Additional Diets: If you have loose stools after surgery, switch to a low fat diet
Activity: No strenuous activity
Additional Activity: Do not lift over 15 pounds for 3-4 weeks
Bathing Restrictions: OK to Shower
Blood Work: CBC, LFT, CMP in 2-3 days
Wound Care: The glue over your incisions will flake off on its own in 2-3 weeks. Avoid scrubbing or picking off the glue.
Activity Restrictions/Additional Instructions:
Call your surgeon if you have worsening pain, nausea with vomiting or a fever >100.5
Referrals:
Josiah Singh MD [Active] - in one month
Alessandra Burr MD [Family Provider] - in one to two weeks
Terry Khan MD [Active] - in two weeks
Prescriptions:
New
cephalexin 500 mg Capsule
500 mg PO QID Qty: 24 0RF
Continued
ascorbic acid (vitamin C) [Vitamin C] 500 MG tablet
500 mg PO DAILY
calcium carbonate [Oyster Shell Calcium 500] 500 MG tablet
500 mg PO DAILY
famotidine 20 MG tablet
20 mg PO BID@1200,2200
atorvastatin 40 MG tablet
40 mg PO QPM
zinc sulfate 220 MG capsule
220 mg PO .2 TIMES A WEEK
vitamin A 2,400 mcg Capsule
2,400 mcg PO MOWEFR@0800
acetaminophen 650 mg Tablet Extended Release
1,300 mg PO BIDPRN PRN (Reason: mild pain)
cholecalciferol (vitamin D3) [Vitamin D3] 25 mcg (1,000 unit) Tablet
25 mcg PO Q48H@0800
Trelegy Ellipta 100-62.5-25 mcg Blister With Device
1 inh INHALATION R DAILY
labetalol 200 mg Tablet
200 mg PO BID
therapeutic multivitamin Tablet
1 tab PO DAILY
azelastine 137 mcg (0.1 %) Aerosol,[place]
2 spray INTRANASAL BIDPRN PRN (Reason: allergies)
fluticasone propionate 50 mcg/actuation [place],Suspension
2 spray INTRANASAL DAILY PRN (Reason: allergies)
coQ10 (ubiquinol) 200 mg Capsule
200 mg PO DAILY
Eliquis 5 MG tablet
5 mg PO BID
ferrous sulfate [iron] 325 mg (65 mg iron) Tablet
325 mg PO DAILY
furosemide [Lasix] 20 mg tablet
20 mg PO DAILY Qty: 30 0RF
diltiazem HCl [DILT-XR] 180 mg capsule,ext.rel 24h degradable
180 mg PO NOON
Discharge Orders:
Discharge Patient (As Directed); Ordered 10/29/23
Ordered By: Rex Irvin
Discharge Date and Time
Discharge Date/Time: 10/29/23 14:06
Print Language: M[place]GR[place]
[2023-10-29] MEDS: CARDIZEM CD 180 MG PO (12:18)
[2023-10-29] MEDS: PEPCID 20 MG PO (12:18)
[2023-10-29 12:24] VITALS: BP 140/75
--- NOTE | 2023-10-29 12:44 | CM ---
Patient has been medically cleared for discharge to home with [facility] services. Patient and have declined in-home PT. will transport home.
[2023-10-29] MEDS: ELIQUIS 5 MG PO (13:27)
--- NOTE | 2023-10-29 14:43 | VNURNOTE ---
Chart reviewed. Left message to patient's spouse to explain [facility] services and to answer any remaining questions. Left voicemail. Referral already in Care Port.
== END 2023-10-29 14:06 | disposition home health service (06) | DRG 853 ==
LOC: 2 NORTH 13:12
PROVIDERS: Internal Medicine; Nurse Practitioner Family; Registered Nurse; Student in an Organized Health Care Education/Training Program; Surgery; ADMITTING PHYSICIAN Internal Medicine; ATTENDING PHYSICIAN Internal Medicine; CONSULT PHYSICIAN Internal Medicine Critical Care Medicine; CONSULT PHYSICIAN Surgery; EMERGENCY PHYSICIAN Emergency Medicine; FAMILY PHYSICIAN Student in an Organized Health Care Education/Training Program; OTHER PHYSICIAN Internal Medicine Infectious Disease
PROC: 5A09357 Assistance with Respiratory Ventilation, Less than 24 Consecutive Hours, Continuous Positive Airway Pressure (ICD-10-PCS; 2023-10-21)
PROC: 0FT44ZZ Resection of Gallbladder, Percutaneous Endoscopic Approach (ICD-10-PCS; 2023-10-23)
PROC: 8E0W4CZ Robotic Assisted Procedure of Trunk Region, Percutaneous Endoscopic Approach (ICD-10-PCS; 2023-10-23)
DX: A41.51 Sepsis due to Escherichia coli [E. coli] (principal); J96.01 Acute respiratory failure with hypoxia; J45.51 Severe persistent asthma with (acute) exacerbation; I50.32 Chronic diastolic (congestive) heart failure; J98.11 Atelectasis; Q24.0 Dextrocardia; J44.1 Chronic obstructive pulmonary disease with (acute) exacerbation; K80.00 Calculus of gallbladder with acute cholecystitis without obstruction; E87.20 Acidosis, unspecified; E87.1 Hypo-osmolality and hyponatremia; I25.10 Atherosclerotic heart disease of native coronary artery without angina pectoris; K21.9 Gastro-esophageal reflux disease without esophagitis; J98.6 Disorders of diaphragm; I11.0 Hypertensive heart disease with heart failure; I48.0 Paroxysmal atrial fibrillation; E78.5 Hyperlipidemia, unspecified; E80.6 Other disorders of bilirubin metabolism; D50.9 Iron deficiency anemia, unspecified; R74.01 Elevation of levels of liver transaminase levels; M41.9 Scoliosis, unspecified; K22.70 Barrett's esophagus without dysplasia; Z66 Do not resuscitate; Z86.73 Personal history of transient ischemic attack (TIA), and cerebral infarction without residual deficits; Z98.1 Arthrodesis status; Z95.5 Presence of coronary angioplasty implant and graft; Z88.1 Allergy status to other antibiotic agents; Z88.5 Allergy status to narcotic agent; Z79.51 Long term (current) use of inhaled steroids; Z79.01 Long term (current) use of anticoagulants; Z86.12 Personal history of poliomyelitis; Z11.52 Encounter for screening for COVID-19; Z86.16 Personal history of COVID-19; Z86.010 Personal history of colon polyps
CPT/HCPCS: 88304; 71045; 74177; 74183; 76700; 80048; 80053; 80076; 82248; 83605; 83690; 83880; 84145; 84484; 85025; 85027; 86803; 87040; 87149; 87186; 87205; 87502; 87811; 93005; 94640; 94660; 96361; 96374; 97116; 97162; 97166; 97530; 99291; A9575; Q9967

== ENCOUNTER → 2023-11-29 12:01 | Outpatient (REF) | payer OTHER, SELFPAY | LOC: RAD 12:01 | PROVIDERS: ATTENDING PHYSICIAN Student in an Organized Health Care Education/Training Program | DX: R07.81 Pleurodynia (principal) | CPT/HCPCS: 71101 ==

== ENCOUNTER 2024-04-21 08:15 | Outpatient (RCR) | payer OTHER, SELFPAY | END 2024-04-21 23:59 | disposition home or self-care (01) | LOC: PURB 08:15 | PROVIDERS: ATTENDING PHYSICIAN Internal Medicine Critical Care Medicine | DX: J98.4 Other disorders of lung (principal); J45.909 Unspecified asthma, uncomplicated; J98.6 Disorders of diaphragm | CPT/HCPCS: G0239 ==

== ENCOUNTER 2024-05-21 08:15 | Outpatient (RCR) | payer OTHER, SELFPAY | END 2024-05-22 11:26 | disposition home or self-care (01) | LOC: PURB 08:15 | PROVIDERS: ATTENDING PHYSICIAN Internal Medicine Critical Care Medicine | DX: J98.4 Other disorders of lung (principal); J45.909 Unspecified asthma, uncomplicated; R06.09 Other forms of dyspnea; J98.6 Disorders of diaphragm | CPT/HCPCS: G0239 ==

== ENCOUNTER 2024-06-04 08:15 | Outpatient (RCR) | payer OTHER, SELFPAY | END 2024-06-05 13:41 | disposition home or self-care (01) | LOC: PURB 08:15 | PROVIDERS: ATTENDING PHYSICIAN Internal Medicine Critical Care Medicine | DX: J98.4 Other disorders of lung (principal); R06.09 Other forms of dyspnea; J45.909 Unspecified asthma, uncomplicated | CPT/HCPCS: G0239 ==

== ENCOUNTER 2024-08-29 09:23 | Emergency (ER) | payer OTHER, SELFPAY ==
[2024-08-29 09:28] VITALS: BP 128/90
--- NOTE | 2024-08-29 11:25 | ED.GENMED ---
History of Present Illness
General
Chief Complaint: Skin Problem
Source: patient
Exam Limitations: none
Time Seen by Provider: 08/29/24 10:37
Nursing documentation reviewed up to this point in time: agreed with
History of Present Illness
History of Present Illness:
78-year-old male with a history of A-fib status post ablation, CAD, on Eliquis, CVA
Presents for a left lower extremity hematoma after a mechanical fall where he was trying to get in his vehicle and slipped causing him to bang his left rodriguez against the bottom of the car. He had a small abrasion and it swelled up. The wound healed
with a scab but remains swollen and now within the past 2 days there is distal redness down his leg on the anterior aspect. Patient has mild warmth and discomfort. He has not had a fever, chills, leg weakness, leg numbness, drainage.
Past History
Past History
ED Past Medical History: Arrthythmia, CAD, CVA, GERD and HTN
ED Past Surgical History: Cardiac, Orthopedic and Other (The patient has a history of 2 spinal fusions, and stents for coronary artery disease. )
Social History
Tobacco: Non-smoker
Alcohol: None
Drug: None
Personal:
Living: with family
Phy Exam
Physical Exam
Physical Exam:
GENERAL: Alert , in no apparent distress, comfortable at rest
HEAD: NCAT
CV: 2+ DP PULSES B/L
NEUROLOGICAL: Alert and oriented, no focal neuro deficits, , 5/5 strength, sensation intact, normal ambulation
SKIN: Warm and dry, venous stasis changes hyperpigmentation bilateral lower extremities mild,
Small 2 and half centimeter round firm likely hematoma with a tiny blood blister or scab over top, there is subsequent erythema distally the anterior lower extremity stopping at the ankle, it is mildly warm but not tender
MUSCULOSKELETAL: Right anterior lower extremity with skin changes as above, full range of motion of the knee and ankle, pulses intact
PSYCH: Normal and appropriate interaction.
Course
Orders/Labs/Results
Orders:
Orders
08/29/24 11:23
Tib/Fib, Left 2 View [CR Leg Tibia/fibula Left 2 Vw] Urgent
Comment:
Reason For Exam: fall, pain, swelling
08/29/24 12:29
Doxycycline [Vibramycin] 100 mg PO NOW STA
08/29/24 13:35
Wound Culture [Wound/Abscess/Other Culture] Urgent
NEW Source: Leg
Specimen Description: Left
Date Specimen was Collected: 08/29/24
Time Specimen was Collected: 12:58
Vital Signs
Initial and Last Documented VS:
Initial Vital Signs
Temp Pulse Resp BP Pulse Ox
36.4 C 95 16 128/90 98
08/29/24 09:28 08/29/24 09:28 08/29/24 09:28 08/29/24 09:28 08/29/24 09:28
Last Documented Vital Signs
Temp Pulse Resp BP Pulse Ox
36.4 C 65 16 124/71 98
08/29/24 09:28 08/29/24 13:48 08/29/24 13:48 08/29/24 13:48 08/29/24 13:48
MDM/Problems Addressed
Differential Diagnosis Includes:
Hematoma, cellulitis, abscess
MDM/Problems Addressed:
78-year-old male with a history of A-fib on Eliquis presents for right lower leg swelling and now redness after bumping his right anterior lower leg against a car. There was initially a small abrasion which healed but it got swollen which was
likely a hematoma to the upper anterior tibial region. He said the redness distally did not start until 2 days ago, it is along the strip of the anterior lower leg and stops at the ankle. He has no pain with ankle movement and is able to
weight-bear. There is no systemic symptoms. On exam he has a tender likely hematoma with a small scab over top and a line was drawn around the cellulitis is warm but nontender, the calf is soft, normal perfusion distally, although both legs have
venous stasis skin changes with hyperpigmentation but no edema
I anesthetized the hematoma area and used an 11 blade just to make a very small incision, I cultured the center of it, use pressure to evacuate some of the small hematoma, there was no significant purulence. I did draw a line around the cellulitis,
left the wound open for drainage, wrapped with a dry dressing. Patient was instructed to use warm compresses for 10 to 15 minutes several times a day over the next 3 to 5 days and take doxycycline twice a day. Return precautions given
*Critical Care Note
Total Time (30-74mins, 75-104mins- exclusive of procedures): Not Applicable
ED Attending Note
-
Portions of this chart may have been created with voice recognition software.� Occasional wrong word or��sound alike� substitutions may have occurred due to the inherent limitations of voice recognition software.
Discharge Plan
Departure
Patient Disposition: Home (Routine Discharge)
Date of Disposition: 08/29/24
Time of Disposition: 13:34
Patient with high blood pressure during this ER visit?: No
Condition: Fair
Covid-19: Not Applicable
Discharge Problem:
Cellulitis of left leg
Instructions: Cellulitis (Skin Infection), Adult (DC)
Prescriptions:
New
doxycycline hyclate 100 mg capsule
100 mg PO BID Qty: 14 0RF
No Action
ascorbic acid (vitamin C) [Vitamin C] 500 MG tablet
500 mg PO DAILY
calcium carbonate [Oyster Shell Calcium 500] 500 MG tablet
500 mg PO DAILY
famotidine 20 MG tablet
20 mg PO BID@1200,2200
atorvastatin 40 MG tablet
40 mg PO QPM
zinc sulfate 220 MG capsule
220 mg PO .2 TIMES A WEEK
vitamin A 2,400 mcg Capsule
2,400 mcg PO MOWEFR@0800
acetaminophen 650 mg Tablet Extended Release
1,300 mg PO BIDPRN PRN (Reason: mild pain)
cholecalciferol (vitamin D3) [Vitamin D3] 25 mcg (1,000 unit) Tablet
25 mcg PO Q48H@0800
Sally Ellipta 100-62.5-25 mcg Blister With Device
1 inh INHALATION R DAILY
labetalol 200 mg Tablet
200 mg PO BID
therapeutic multivitamin Tablet
1 tab PO DAILY
azelastine 137 mcg (0.1 %) Aerosol,[place]
2 spray INTRANASAL BIDPRN PRN (Reason: allergies)
fluticasone propionate 50 mcg/actuation [place],Suspension
2 spray INTRANASAL DAILY PRN (Reason: allergies)
coQ10 (ubiquinol) 200 mg Capsule
200 mg PO DAILY
Eliquis 5 MG tablet
5 mg PO BID
ferrous sulfate [iron] 325 mg (65 mg iron) Tablet
325 mg PO DAILY
furosemide [Lasix] 20 mg tablet
20 mg PO DAILY Qty: 30 0RF
diltiazem HCl [DILT-XR] 180 mg capsule,ext.rel 24h degradable
180 mg PO NOON
cephalexin 500 mg Capsule
500 mg PO QID Qty: 24 0RF
Referrals:
Alessandra Burr MD [Family Provider] -
Activity Restrictions/Additional Instructions:
Apply warm compresses off-and-on to your leg. Watch the area of redness to make sure it is not increasing outside of the line drawn. Take doxycycline twice a day for 7 days. We cultured the area in case we need to change antibiotics. Return for
fever, worsening pain or swelling, worsening redness streaking outside the line, numbness tingling or weakness in the foot or any concerns
Interventions
Interventions:
*Risk Screen - Suicide Last Done: 08/29/24 09:28
*General Assessment Last Done: 08/29/24 10:49
*Neglect/Abuse Screening Last Done: 08/29/24 09:28
*ED- Fall Risk Assessment Last Done: 08/29/24 10:49
*ED COVID-19 Vaccine History Last Done: 08/29/24 10:49
*Nursing Disposition Last Done: 08/29/24 13:48
ED-Skin Assessment Last Done: 08/29/24 13:48
Discharge Date and Time
Discharge Date/Time: 08/29/24 13:48
Print Language: FRENCH
[2024-08-29 11:27] VITALS: BP 124/67
[2024-08-29] MEDS: VIBRAMYCIN 100 MG PO (13:45)
[2024-08-29 13:48] VITALS: BP 124/71
== END 2024-08-29 13:48 | disposition home or self-care (01) ==
LOC: EMR 09:23
PROVIDERS: EMERGENCY PHYSICIAN Emergency Medicine; FAMILY PHYSICIAN Student in an Organized Health Care Education/Training Program
DX: L03.116 Cellulitis of left lower limb (principal); I48.91 Unspecified atrial fibrillation; I25.10 Atherosclerotic heart disease of native coronary artery without angina pectoris; I10 Essential (primary) hypertension; Z79.01 Long term (current) use of anticoagulants; Z86.73 Personal history of transient ischemic attack (TIA), and cerebral infarction without residual deficits; Z95.5 Presence of coronary angioplasty implant and graft; Z98.1 Arthrodesis status
CPT/HCPCS: 99283; 73590; 87070; 87205

== ENCOUNTER 2024-09-26 04:54 | Emergency (ER) | payer OTHER, SELFPAY ==
[2024-09-26] VITALS (18 sets, daily range): BP systolic 129–188; BP diastolic 62–107; BMI 20.3
--- NOTE | 2024-09-26 05:07 | EDRN ---
Dr Terrell talking with pt's at bedside
[2024-09-26 05:08] LABS: Glucose - Point of Care 120 mg/dl (70-99)
--- NOTE | 2024-09-26 05:16 | EDRN ---
Dr Terrell was in to update pt's . This RN called pharmacy for [facility]. Pt incontinent of urine - staff providing perineal care, new sheet provided and pad placed under pt.
--- NOTE | 2024-09-26 05:18 | ED.CVA ---
Addendum entered and electronically signed by Jayant Terrell DO 09/29/24 13:18:
PROCEDURE: the patient was intubated with a 7.5ETT. Glidescope used. cords easily visualized. tube confirmed with direct visualization, auscultation with equal breath sounds, CO2 detector with good color changes and CXR. tolerated procedure well.
pt was sedated and paralyzed
Original Note:
History of Present Illness
General
Chief Complaint: CVA/TIA Symptoms
Source: patient and spouse
Time Seen by Provider: 09/26/24 05:03
Onset of Stroke Symptoms
Onset of symptoms known: Yes
Date of onset of symptoms: 09/26/24
History of Present Illness
History of Present Illness:
Note:
CHIEF COMPLAINT(S)
Right-side weakness and loss of function.
HISTORY OF PRESENT ILLNESS
The patient, with a history of a stroke five years ago, presented with an acute onset of right-sided weakness and loss of function upon waking approximately one hour before presentation. Initially, the patient attempted to go to the bathroom and
realized they couldn't move their right side. The patient went to bed at midnight feeling normal. There was no significant headache reported, with the patient responding �Not really� to inquiries. Initial clinical findings revealed a heart rate in
the 50s and blood pressure in the 170s. Additionally, the patient began vomiting.
ADDITIONAL HISTORY OBTAINED FROM SOURCES OTHER THAN THE PATIENT
Per the EMS, the patient has a history of a prior stroke. The patient's states that the patient is on eliquIs.
PHYSICAL EXAM
- Airway is intact. The patient is awake and alert. Dense right-sided hemiparesis is noted. Right facial droop is noted. The patient is dysarthric but does follow commands. No respiratory distress observed. Abdomen is not distended. Heart regular
without murmur. Lungs clear. No peripheral edema. No peripheral cyanosis. Nursing notes and vital signs reviewed.
PROBLEM LIST
- Acute right-sided weakness and loss of function
- History of previous stroke
DIFFERENTIAL DIAGNOSIS
The Differential Diagnosis includes, in no particular order and is not limited to:
1. Acute ischemic stroke
2. Hemorrhagic stroke
3. Transient ischemic attack
4. Intracranial hemorrhage
5. Brain tumor
6. Seizure
7. Hypoglycemia
8. Migraine with aura
9. Multiple sclerosis
10. Peripheral neuropathy
CARE-UPDATE
09/26/24:04
CT imaging reveals a left-sided intraparenchymal hemorrhage with intraventricular extension. Further evaluation for potential surgical intervention is recommended. Adjust current management plan to include neurosurgical consultation and close
monitoring for neurological changes.
CARE-UPDATE
09/26/24:11
The patient is experiencing bleeding in the brain, likely due to his anticoagulant medication, Eliquis, prescribed post-ablation for atrial fibrillation. Plans are in place to reverse the blood thinner. Due to the lack of in-house neurosurgical
capabilities, a transfer to the [facility] is being arranged for specialized care. Neurological examination reveals flaccid paralysis of the right upper and lower extremities, right facial droop, neglect on the right side,
dysarthria, and loss of proprioception on the right side. The patient remains awake and responsive, with no respiratory distress noted.
CARE-UPDATE
09/26/24:14
Discussed imaging findings with radiology, confirming a 37mm x 32mm x 30mm left thalamic hemorrhage with interventricular extension and fourth ventricular blood involvement.
CARE-UPDATE
09/26/24:15
Patient does not take aspirin; confirmed only on Eliquis. Initiating medication reversal protocol and coordinating with [facility] for further management. Monitoring potential intraventricular hemorrhage due to risk of cerebral
edema. Neurocritical care team being involved for comprehensive management.
CARE-UPDATE
09/26/24:38
The neurosurgical, neurology, and shoe dyer teams agree on blood pressure management with a target systolic range of 130-150. Cardene IV will be initiated to achieve these goals. Due to current weather conditions, no flight transport is available.
[facility], and further discussions will be held with [facility].
CARE-UPDATE
09/26/24 - 05:[address] Spain from [facility], who agrees with the current management but suggests adding vitamin K to the treatment plan. He also advises adjusting the treatment to achieve a systolic blood pressure below 140 mmHg.
Will continue titration. Efforts are underway to secure transportation to [place] for further care.
CARE-UPDATE
09/26/24 - 06:07
The patients Doc Coma Scale (GCS) score has declined significantly. He is no longer responsive to verbal stimuli and exhibits a weak gag reflex. A decision was made to intubate the patient. The patients family has been informed.
NIHSS:
Result Summary
16 points undefined
Inputs:
1A: Level of consciousness -> 0 = Alert; keenly responsive
1B: Ask month and age -> 0 = Both questions right
'Blink eyes' & 'squeeze hands' -> 0 = Performs both tasks
2: Horizontal extraocular movements -> 1 = Partial gaze palsy: can be overcome
3: Visual mathew -> 0 = No visual loss
4: Facial palsy -> 2 = Partial paralysis (lower face)
5A: Left arm motor drift -> 0 = No drift for 10 seconds
5B: Right arm motor drift -> 4 = No movement
6A: Left leg motor drift -> 0 = No drift for 5 seconds
6B: Right leg motor drift -> 4 = No movement
8: Sensation -> 2 = Complete hemianesthesia
7: Limb ataxia -> 0 = No ataxia
9: Language/aphasia -> 0 = Normal
10: Dysarthria -> 2 = Severe dysarthria
11: Extinction/inattention -> 1 = Neglect in 1 modality
Disposition:
SUMMARY OF ENCOUNTER
The 79-year-old male patient presented with a left-sided intraparenchymal hemorrhage. The patient was initially on Eliquis, which was reversed due to the active bleeding. The neurosurgery recommendations included managing the patients blood
pressure, which led to the decision of intubating the patient for airway protection. The patient was then prepared for transfer to [facility] for further management and care. Blood pressure was maintained, and Cardene IV was
initiated and titrated as necessary.
DISPOSITION
Transfer to [facility].
MANAGEMENT OF THE PATIENTS CARE WAS DISCUSSED WITH
The neurosurgery team recommended blood pressure management, and coordination for transfer to [facility] was discussed and arranged.
INDEPENDENT INTERPRETATION OF TESTS
- My independent interpretation of the complete blood count (CBC) is normal white blood cell count and normal hemoglobin levels.
- My independent interpretation of the comprehensive metabolic panel (CMP) indicates normal renal function, grossly normal electrolytes, and liver function tests (LFTs).
MEDICATION RECONCILIATION
- Eliquis was noted and reversed.
- Sedation was provided with propofol.
MEDICAL DECISION MAKING
The patient presented with a complex situation involving an acute intracerebral hemorrhage while on anticoagulation therapy. The decision to reverse Eliquis and intubate the patient for airway protection reflects high-stakes management choices
indicative of severe clinical deterioration risk. Coordination with the neurosurgery team provided guidance on optimal blood pressure control with Cardene titration. Additionally, transfer to a hospital with the capability for further neurosurgical
intervention was prioritized. The careful monitoring of lab results and imaging studies contributed to the comprehensive management plan.
Past History
Past History
ED Past Medical History: Arrthythmia (AF), CAD, CVA, GERD and HTN
ED Past Surgical History: Cardiac, Orthopedic and Other (The patient has a history of 2 spinal fusions, and stents for coronary artery disease. )
Social History
Tobacco: Non-smoker
Alcohol: None
Drug: None
Personal:
Living: with family
Phy Exam
Physical Exam
Physical Exam:
.
Course
Orders/Labs/Results
Orders:
Orders
06/07/25 04:56
CT HEAD STROKE ALERT W/o Cont Stat
Comment:
Reason For Exam: R side facial droop, aphasia
09/26/24 05:05
EKG [Electrocardiogram (*1)] Stat
Reason for Study: TIA/Stroke
Electrocardiogram (*1) Urgent
Reason for Study: TIA/Stroke
EKG- Treatment ONCE
09/26/24 05:08
Complete Blood Count/With Diff Urgent
Comprehensive Metabolic Panel Urgent
Prothrombin Time Urgent
Troponin I Urgent
09/26/24 05:16
Prothrombin Complex(Pcc),Human [Kcentra] 1,528 unit Empty Viaflex Container 100 ml [Viaflex Empty Container] 60 ml IV NOW
Does patient have a dx of serious acute active bleeding?: Yes
Does patient have prior history of HIT?: No
Urgent surgery/invasive procedure planned in next 6 hours?: No
09/26/24 05:24
Nicardipine 40 mg/200 ml [Cardene] 40 mg in 200 ml IV NOW
Initial dose in mg/hr, then titrate:: 2.5
Titrate to keep:: Other
Titrate to keep other:: 130-150
Titrate by mg/hr:: 2.5 mg/hr
Frequency of titrations (minutes):: 5-15 minutes
Maximum dose in mg/hr:: 15
Begin to taper infusion when:: Remained at goal for 2hrs
Taper by mg/hr:: 2.5 mg/hr
Frequency of taper (minutes) if patient maintains goal:: 15-30 minutes
Taper to off?: Yes
If infusion off & no longer maintaining goal:: Contact Provider
09/26/24 06:00
Flush (0.9% Sodium Chloride) [Flush (Nss)] See Dose Instructions IV PER PROTOCOL
09/26/24 06:05
Chest X-ray Portable [CR Chest Portable - 1 View] Stat
Comment:
Reason For Exam: s/p intubation
Reason Study Needs to be Portable: Patient Unstable
09/26/24 06:08
Propofol 1,000,000 Mcg/100 ml [Diprivan] 1,000,000 mcg in 100 ml .ROUTE .STK-MED
09/26/24 06:09
Propofol 1,000,000 Mcg/100 ml [Diprivan] 1,000,000 mcg in 100 ml IV NOW
Indication:: Light Sedation
Begin Infusion:: Now
Goal:: RASS 0 to -2
Maximum dose in mcg/kg/min:: 50
Initial dose based on RASS:: Yes
If RASS is:: +1 or pt hemodynamically unstable (SBP < 90mmHg), initiate at 10 mcg/kg/min
If RASS is:: +2, initiate at 20 mcg/kg/min
If RASS is:: greater than or equal to +3, initiate at 30 mcg/kg/min
Titration Instructions:: Titrate by 5-10 mcg/kg/min every 5 minutes until RASS 0 to -2 achieved.
Taper Instructions:: If RASS is at or below goal for 4 consecutive hours decrease infusion by
Taper Instructions:: 5-10 mcg/kg/min every 2 hours to off.
Over-sedation Instructions:: If CPOT 0-2 (at goal) AND RASS -3 to -5 (below goal) decrease sedative by
Over-sedation Instructions:: 50% first. If pain score remains at goal and RASS remains below goal in
Over-sedation Instructions:: 1 hour, decrease opioid infusion by 50%.
Notify provider:: immediately if patient exhibits signs/symptoms of propofol-related
Notify provider:: infusion syndrome.
Additional Instructions:: Patient MUST be mechanically ventilated and MUST receive analgesia.
09/26/24 06:17
Phytonadione [Aquamephyton] 5 mg 0.9% Sodium Chloride 50 ml [Nss] 50 ml IV NOW
Abnormal Lab Results
09/26/24 09/26/24
05:07 05:08
RBC 4.15 L 10^6/uL
(4.70-6.10)
MCV 94.9 H fL
(80.0-94.0)
MCH 31.8 H pg
(27.0-31.0)
Absolute Neuts (auto) 6.8 H 10^3/uL
(1.4-6.5)
Absolute Monos (auto) 1.2 H 10^3/uL
(0.1-0.6)
Lymphocytes % 13.7 L %
(20.5-51.1)
Monocytes % 12.5 H %
(1.7-9.3)
PT 16.4 H Sec
(11.4-14.6)
Chloride 108 H mmol/L
(98-107)
Glucose 124 H mg/dl
(70-99)
POC Glucose 120 H mg/dl
(70-99)
09/26/24 05:08
09/26/24 05:08
Vital Signs
Initial and Last Documented VS:
Initial Vital Signs
Temp BP
97.8 F 173/102
09/26/24 05:08 09/26/24 05:08
Last Documented Vital Signs
Temp Pulse Resp BP Pulse Ox
97.8 F 57 22 167/80 100
09/26/24 05:08 09/26/24 06:40 09/26/24 06:40 09/26/24 06:40 09/26/24 06:40
Procedures
Intubations
Procedure completed by: Dr Terrell
Method of Intubation: glidescope
Tube size (cm): 7.5
Placement confirmed by: auscutation and CXR
Breath sounds after intubation: equal
Intubation complications: no complications
*Pulse Oximetry
Patient hypoxic: no
*Training And Development Specialist Interpretation
Rate: normal
Interpretation: normal
Rhythm: sinus
*Critical Care Note
Total Time (30-74mins, 75-104mins- exclusive of procedures): 65 minutes
ED Attending Note
-
Portions of this chart may have been created with voice recognition software.� Occasional wrong word or��sound alike� substitutions may have occurred due to the inherent limitations of voice recognition software.
Discharge Plan
Departure
Patient Disposition: Acute Care Hospital
Date of Disposition: 09/26/24
Time of Disposition: 05:33
Discharge Problem:
Thalamic hemorrhage
Prescriptions:
No Action
ascorbic acid (vitamin C) [Vitamin C] 500 MG tablet
500 mg PO DAILY
calcium carbonate [Oyster Shell Calcium 500] 500 MG tablet
500 mg PO DAILY
famotidine 20 MG tablet
20 mg PO BID
atorvastatin 40 MG tablet
40 mg PO QPM
zinc sulfate 220 MG capsule
220 mg PO Q48H
vitamin A 2,400 mcg Capsule
2,400 mcg PO Q48H
cholecalciferol (vitamin D3) [Vitamin D3] 25 mcg (1,000 unit) Tablet
25 mcg PO Q48H
Trelegy Ellipta 100-62.5-25 mcg Blister With Device
1 inh INHALATION QPM
labetalol 200 mg Tablet
200 mg PO BID
therapeutic multivitamin Tablet
1 tab PO DAILY
azelastine 137 mcg (0.1 %) Aerosol,[place]
2 spray INTRANASAL BIDPRN PRN (Reason: allergies)
coQ10 (ubiquinol) 200 mg Capsule
200 mg PO DAILY
Eliquis 5 MG tablet
5 mg PO BID
ferrous sulfate [iron] 325 mg (65 mg iron) Tablet
325 mg PO Q48H
diltiazem HCl [DILT-XR] 180 mg capsule,ext.rel 24h degradable
180 mg PO DAILY
Referrals:
UNKNOWN - PT DOES,NOT KNOW [Family Provider]
Hospital Transfer
Other hospital: COUNTS INCLUDE 234 BEDS AT THE [facility]
I certify that the patient requires transfer: Yes
Discussed case with accepting physician: Abiola
Reason for transfer: higher level of care
Interventions
Interventions:
*Risk Screen - Suicide Last Done: 09/26/24 05:13
*General Assessment Last Done: 09/26/24 05:13
*Neglect/Abuse Screening Last Done: 09/26/24 05:13
*ED- Fall Risk Assessment Last Done: 09/26/24 05:14
ED- Pulmonary Assessment Last Done: 09/26/24 05:25
ED- Neurological Assessment Last Done: 09/26/24 05:19
ED- Cardiac Assessment Last Done: 09/26/24 05:25
Discharge Date and Time
Print Language: CHILEAN
[2024-09-26 05:27] LABS: % Basophils 0.6 % (0-2); % Eosinophils 4.2 % (0-6); % Immature Granulocytes 0.4 % (0-0.5); % Lymphocytes 13.7 % (20.5-51.1); % Monocytes 12.5 % (1.7-9.3); % Neutrophils 68.6 % (42.2-75.2); Absolute Basophils 0.1 10^3/uL (0-0.2); Absolute Eosinophils 0.4 10^3/uL (0-0.7); Absolute Lymphocytes 1.4 10^3/uL (1.2-3.4); Absolute Monocytes 1.2 10^3/uL (0.1-0.6); Absolute Neutrophils 6.8 10^3/uL (1.4-6.5); Hematocrit 39.4 % (39.0-52.0); Hemoglobin 13.2 g/dL (13.0-18.0); Mean Corp Hgb Conc. 33.5 g/dL (33.0-37.0); Mean Corpuscular Hgb 31.8 pg (27.0-31.0); Mean Corpuscular Volume 94.9 fL (80.0-94.0); Mean Platelet Volume 10.4 fL (7.4-10.4); Nucleated Red Blood Cells % 0 % (-); Platelet Count 172 10^3/uL (130-400); Red Blood Cell Count 4.15 10^6/uL (4.70-6.10); Red Cell Dist. Width 13.9 % (11.5-14.5); White Blood Cell Count 9.9 10^3/uL (4.8-10.8)
[2024-09-26 05:32] LABS: INR 1.29; PT 16.4 Sec (11.4-14.6)
[2024-09-26] MEDS: CARDENE 200 IV (05:33)
[2024-09-26] MEDS: KCENTRA 60 UNIT IV (05:38)
[2024-09-26 05:49] LABS: ALT (SGPT) 28 U/L (0-50); AST (SGOT) 31 U/L (17-59); Albumin 3.9 g/dl (3.5-5.0); Alkaline Phosphatase 84 U/L (38-126); Blood Urea Nitrogen 19 mg/dl (9-20); Calcium 8.4 mg/dl (8.4-10.2); Carbon Dioxide 30 mmol/L (22-30); Chloride 108 mmol/L (98-107); Estimated Creatinine Clearance 67 ml/min; Glucose 124 mg/dl (70-99); Potassium 4.1 mmol/L (3.5-5.1); Sodium 140 mmol/L (135-145); Total Bilirubin 0.7 mg/dl (0.2-1.3); Total Protein 6.6 g/dl (6.3-8.2); eGFR > 60.00
--- NOTE | 2024-09-26 05:56 | EDRN ---
Dr Terrell explained intubation to pt's . Pt more obtunded. Grunts occasionally. RT on way down.
[2024-09-26 05:58] LABS: Troponin I < 0.012 ng/ml
--- NOTE | 2024-09-26 06:01 | EDRN ---
NRB placed by RT while Dr Terrell preparing to intubate pt
--- NOTE | 2024-09-26 06:03 | EDRN ---
20mg etomidate IV followed by 75mg succinylcholine IV administered by Yohan Rodriguez RN per favian Terrell
--- NOTE | 2024-09-26 06:04 | EDRN ---
Pt intubated by Dr Terrell with 7.0 ett 23cm at lip confirmed with end tidal CO2 detector
[2024-09-26] MEDS: DIPRIVAN 100 IV (06:14)
--- NOTE | 2024-09-26 06:18 | EDRN ---
0618 pt given 50mg IVP propofol per Dr Terrell because he was fighting ventilator. Dr Terrell is aware of elevated SBPs and asked that start propofol and monitor bps.
--- NOTE | 2024-09-26 06:30 | EDRN ---
Pt incontinent, perineal care being provided and linens changed
[2024-09-26] MEDS: AQUAMEPHYTON 50.5 MG IV (06:41)
--- NOTE | 2024-09-26 06:50 | EDRN ---
Report called to Margie at [facility]
--- NOTE | 2024-09-26 07:01 | EDRN ---
Pt given 50mg IVP propofol per Dr Terrell - pt moving L side, straining against restraint
--- NOTE | 2024-09-26 08:23 | EDRN ---
Upon entering room after the patient was transfered to another hospital, discovered a sterile container with a dental appliance in it. Labeled the container, placed in specimen bag secured with label and note indicating the patient was transferred
to [facility] on this date. Brought to security and filled out a Lost and Found incident report with [employer].
== END 2024-09-26 07:08 | disposition short-term general hospital (02) ==
LOC: EMR 04:54
PROVIDERS: EMERGENCY PHYSICIAN Emergency Medicine
DX: I61.8 Other nontraumatic intracerebral hemorrhage (principal); I69.351 Hemiplegia and hemiparesis following cerebral infarction affecting right dominant side; Z95.5 Presence of coronary angioplasty implant and graft; Z98.1 Arthrodesis status; I10 Essential (primary) hypertension; I25.10 Atherosclerotic heart disease of native coronary artery without angina pectoris; Z79.01 Long term (current) use of anticoagulants
CPT/HCPCS: 31500; 99291; 96374; 96375; 70450; 71045; 80053; 82962; 84484; 85025; 85610; 93005; 94002; J7168